=== PATIENT | female | born 1955 | race Caucasian/White ===

== ENCOUNTER 2021-02-20 18:38 | Inpatient (IN) | payer OTHER, SELFPAY ==
[2021-02-20] VITALS (11 sets, daily range): BP systolic 136–182; BP diastolic 75–87; PULSE 79–93; RESP 12–29; TEMP 36.8–38.3; O2SAT 92–95; BMI 49.5; BMI 48.9
--- NOTE | 2021-02-20 18:48 | EKG12_ITS ---
Test Reason : SOB Blood Pressure : / mmHG Vent. Rate : 087 BPM Atrial Rate : 087 BPM P-R Int : 162 ms QRS Dur : 086 ms QT Int : 362 ms P-R-T Axes : 015 -28 013 degrees QTc Int : 435 ms Normal sinus rhythm Normal ECG Confirmed by TAI RUFF, ANGIE ([id number]), editor managing newspaper FARHAD ZAMORA ([id number]) on 02/22/2021 2:41:53 PM Referred By: Confirmed By:SHAHIDA LUJAN MD
--- NOTE | 2021-02-20 18:54 | ED.RN ---
NO OLD EKGS IN MUSE
[2021-02-20] MEDS: dexAMETHasone 4 MG Tablet 6 MG PO (18:57)
--- NOTE | 2021-02-20 19:05 | ED.DCSUM_ITS ---
- ER Visit Summary Date of Service: 02/20/21 Chief Complaint: Dyspnea, Covid History of Present Illness: The patient is a 65 F presenting with shortness of breath. Patient started having Covid symptoms 6 days ago. She was tested at [facility] on Thursday, 2 days ago and tested positive for Covid. Today she became increasingly short of breath. EMS was called. Her pulse ox was 60% on room air. With nonrebreather mask her pulse ox was 94%. She was started on BiPAP on arrival to the ED. She complains of fever, myalgias. She has shortness of breath and cough. She denies chest pain. Denies other complaints. Physical Examination: Vitals are stable. Patient is afebrile. Alert no acute distress. HEENT exam is unremarkable. Neck is supple. Lungs are diminished bilaterally. Heart is regular rate and rhythm. Abdomen is soft nontender nondistended. Extremities are unremarkable. Skin is warm and dry. No focal neurologic deficit. Remainder of exam is unremarkable. Emergency Department Course and Treatment: Patient was started on BiPAP on arrival to the ED. She was given Decadron, Tylenol. CBC, chemistries unremarkable. AST 54. Troponin is negative. EKG is sinus rhythm rate of 87 with no acute ischemic changes. Chest x-ray read by myself and radiology shows bilateral patchy infiltrates. Patient is improved while on BiPAP. Discussed with hospitalist for admission. Disposition: Admission Impression: Covid pneumonia, hypoxia This note was generated with [employer] dictation software. It may contain incorrect words, spelling, and punctuation that were not noted in review of the chart prior to signing ED Disposition - Plan for ED Patient: Referrals: Care Physician,No Primary [Primary Care Provider] -
[2021-02-20 19:07] LABS: Absolute Lymphocyte Count 0.89 X10^3/uL (0.83-4.51); Absolute Neutrophil Count 3.8 X10^3/uL (2.0-7.7); Basophil# 0.01 X10^3/uL; Basophil% 0.2 % (0-1); Hematocrit 44.6 % (37-47); Hemoglobin 14.3 g/dL (12.0-15.0); Lymphocyte # 0.89 X10^3/ul (4.0); Lymphocyte % 17.2 % (19-41); Mean Corp Hgb Conc 32.1 g/dL (32-36); Mean Corpuscular Hgb 28.3 pg (27.0-32.0); Mean Corpuscular Volume 88.3 fL (81-99); Mean Platelet Vol. 10.4 fl (6.2-12.0); Monocyte# 0.42 X10^3/uL; Monocyte% 8.1 % (0-10); NRBC Flagged by Analyzer 0 % (0-5); Neutrophil # 3.81 X10^3/uL (2.7-7.7); Neutrophil % 73.9 % (47-70); Platelet Count 194 K/mm3 (150-450); RBC Distribution Width CV 13.3 % (11.6-14.6); RBC Distribution Width SD 42.9 fl (35.1-43.9); Red Blood Count 5.05 M/mm3 (4.2-5.4); White Blood Count 5.2 K/mm3 (4.4-11.0)
--- NOTE | 2021-02-20 19:12 | RAD_ITS ---
STUDY: X-RAY CHEST REASON FOR EXAM: Female, 65 years old. covid TECHNIQUE: Frontal view COMPARISON: None. FINDINGS: The lungs are not fully expanded. Bilateral diffuse patchy infiltrates. Normal size heart. Normal mediastinum and mayela. Normal visualized pulmonary arteries. Normal visualized aortic arch and descending thoracic aorta. Degenerative changes of the thoracic spine. Normal visualized ribs, clavicles, and shoulders. There is no demonstrated abnormality of the visualized soft tissue structures of the upper abdomen. RAD/Chest 1 View (Portable) IMPRESSION: Bilateral patchy infiltrates. Electronically Signed: Rodger Meneses DO at 19:34 EDT Tel [phone], Service support ,
[2021-02-20 19:29] LABS: ALB/GLOB Ratio 0.7 RATIO (0.9-2.4); AST(SGOT) 54 U/L (15-37); Alanine Aminotransfer ALT/SGPT 35 U/L (13-56); Albumin, Serum 3.1 g/dL (3.2-5.0); Alkaline Phosphatase 78 U/L (45-117); Anion Gap 4 (5-15); BUN 13 mg/dL (7-18); BUN/Creat Ratio 19.9 RATIO (10-20); Calcium,Total 8.2 mg/dL (8.5-10.1); Chloride 106 mmol/L (98-107); Creatinine, Serum 0.65 mg/dL (0.55-1.02); EST Glomerular Filtration Rate 97 mL/min (>60); Est Glom Filt Rate - Afr Amer 118 mL/min (>60); Globulin 4.6 g/dL (2.2-4.2); Glucose 103 mg/dL (74-106); Potassium 3.7 mmol/L (3.5-5.1); Protein, Total 7.7 g/dL (6.4-8.2); Sodium Level 139 mmol/L (136-145)
[2021-02-20] MEDS: Acetaminophen 500 MG Tablet 1000 MG PO (19:29)
--- NOTE | 2021-02-20 20:53 | HP.PCM_ITS ---
Problem List (1) Acute respiratory failure with hypoxia Status: Acute (2) Acute bilateral COVID-19 pneumonia Status: Acute History of Present Illness Date of Admission: 02/20/21 Chief Complaint: Shortness of breath. The patient is a 65 year old F with no significant past medical history presented to the emergency room because of shortness of breath. Her illness started on 6 days ago with dry cough associated with fever and not feeling well. She had a fever of up to 102.5 Fahrenheit this past Thursday at home. On Thursday, she went to [facility] and she tested positive for COVID-19. Over the last couple of days, she has been having increasing shortness of breath, initially was with exertion but now it is even at rest, associated with dry cough and weakness as well as subjective fever and without aggravating or relieving factors. Reportedly, alessandro found that her pulse ox was in the 60% on room air at home. She was placed on an breather mask. She denied chest pain, palpitation, dizziness or lightheadedness. She denied abdominal pain, nausea or vomiting. She denied loss of taste or smell. In the emergency department, she is afebrile, heart rate stable, blood pressure stable, pulse ox is 94% on BiPAP. Her routine blood work was unremarkable. LFT was unremarkable. EKG revealed normal sinus rhythm without evidence of acute hemic changes. Troponin was negative. Chest x-ray revealed diffuse bilateral patchy infiltrate consistent with COVID-19 pneumonia. COVID-19 antigen was positive. She is being admitted for acute bilateral COVID-19 pneumonia complicated by acute hypoxic respiratory failure. Past Medical History Allergies No Known Allergies Allergy (Verified 02/20/21 18:40) Home Medications: Ambulatory Orders Medication Instructions Recorded NK 02/20/21 Surgical History: hysterectomy, tonsillectomy, - - Carpal tunnel surgery. Psychiatric History: No pertinent psych hx Lives: With Family Smoking Status: Never smoker Alcohol: None, Rare - *Family History Maternal History Items: No pertinent history Paternal History Items: No pertinent history Review of Systems Constitutional: Reports: Fever, Malaise, Weakness. Denies: Anorexia, Chills Eyes: Denies: Blurred vision, Double vision, Drainage, Redness, Vision Change HEENT: Denies: Difficulty Hearing, Ear Pain, Eye Pain, Nasal Congestion, Sore Throat Cardiovascular: Denies: Chest Pain, Chest Pressure, Edema, Heaviness, Light Headedness, Palpitations, Syncope Respiratory: Reports: Cough, Shortness of Breath, Shortness of breath upon exertion. Denies: Pleuritic Pain, Sputum production, Wheezing Gastrointestinal: Denies: Abdominal Pain, Constipation, Diarrhea, Nausea, Vomiting Genitourinary: Denies: Dysuria, Frequency, Hematuria Musculoskeletal: Denies: Arm Pain, Back Pain, Foot Pain Skin: Denies: Dryness, Rash Neurological: Denies: Balance problems, Blurred vision, Double vision, Change in Speech, Slurred speech, Confusion, Headaches, Incoordination Psychiatric: Denies: Anxiety, Depression Endocrine: Denies: Change in Body Habitus, Polydipsia, Polyuria VTE Information - Inpt Only VTE Present on Admission: No VTE Mechan Device Prophylaxis: None VTE Pharm Prophylaxis ordered?: Yes - Physical Exam Vitals/I&O's: Vital Signs Temp Pulse Resp BP Pulse Ox 98.3 F 82 28 H 138/87 H 93 02/20/21 20:50 02/20/21 20:50 02/20/21 20:50 02/20/21 20:50 02/20/21 20:50 Oxygen Delivery Method Bi-pap Weight: 288 lb 5.834 oz Body Mass Index (BMI) 49.5 General: Alert, Oriented x3, Cooperative, - - Moderately short of breath, on BiPAP. HEENT: Atraumatic, PERRLA, EOMI, Normocephalic Oral: Moist Mucosa, No Gingival or Mucosal Lesions/ Ulcerations Neck: Supple, No JVD, Negative Carotid Bruits, Trachea Midline, Thyroid Normal Size and Texture Lungs: Clear to auscultation, No rhonchi, No wheeze, No rales, Diminished Cardiovascular: Regular rate, Regular Rhythm, Normal S1, Normal S2, No murmurs, PMI Normal Abdomen: Bowel Sounds Present, Soft, Non Tender, Non-Distended, No Hepato- splenomegaly, Obese Extremities: No clubbing, No cyanosis, No edema Skin: No rashes, No breakdown Lymphatic: No Cervical, Supraclavicular, or Inguinal Adenopathy Neurological: Cranial nerves II-XII grossly intact, Motor Exam 5/5 strength throughout Psych/Mental Status: Normal Affect, Appropriate, Alert and oriented to time, place, person, mood and affect Microbiology Past 72 Hours 02/20/21 18:52 Mucosa - Nasopharyngeal SARS-CoV-2 Antigen (Rapid) - Final SARS-CoV-2 (COVID 19) Laboratory Results 02/20/21 18:55: WBC 5.2, RBC 5.05, Hgb 14.3, Hct 44.6, MCV 88.3, MCH 28.3, MCHC 32.1, RDW Std Deviation 42.9, RDW Coeff of Ramsey 13.3, Plt Count 194, MPV 10.4, Immature Gran % (Auto) 0.600, Neut % (Auto) 73.9 H, Lymph % (Auto) 17.2 L, [place] % (Auto) 8.1, Eos % (Auto) 0.0, Baso % (Auto) 0.2, Absolute Neuts (auto) 3.8, Absolute Lymphs (auto) 0.89, Nucleated RBC % 0 02/20/21 18:55: Sodium 139, Potassium 3.7, Chloride 106, Carbon Dioxide 29.0, Anion Gap 4 L, BUN 13, Creatinine 0.65, Estim Creat Clear Calc 76.50, Est GFR (MDRD) Af Amer 118, Est GFR (MDRD) Non-Af 97, BUN/Creatinine Ratio 19.9, Glucose 103, Calcium 8.2 L, Total Bilirubin 0.60, AST 54 H, ALT 35, Alkaline Phosphatase 78, Troponin I < 0.015, Total Protein 7.7, Albumin 3.1 L, Globulin 4.6 H, Albumin/Globulin Ratio 0.7 L Clinical Impression(s) from Imaging Studies Chest X-Ray 02/20/21 19:12 IMPRESSION: Bilateral patchy infiltrates. Electronically Signed: Rodger Meneses DO at 19:34 EDT Tel [phone], Service support , Assessment/Plan All Active Problems Acute respiratory failure with hypoxia (Acute) Acute bilateral COVID-19 pneumonia (Acute) This is a 65 years old female patient presented to the emergency room because of 6 days history of cough, malaise and weakness and 2 days history of worsening shortness of breath, found to have diffuse bilateral patchy infiltrate on chest x-ray and she tested positive for COVID-19, she is being admitted for acute bilateral COVID-19 pneumonia complicated by acute hypoxic respiratory failure. #1 acute bilateral COVID-19 pneumonia: Chest x-ray reviewed. Patient tested positive for COVID-19 on Thursday, January 18, 2021 and tested positive again today. Currently, she is on BiPAP. Plan: Admit to [facility] COVID-19 floor, isolation precautions, check BNP, CPK, D-dimer, lactic acid, PT and INR, start p.o. Decadron, IV remdesivir, Tylenol as needed, albuterol inhaler as needed, Zofran as needed, pulmonology and infectious disease consult, repeat CBC and CMP tomorrow morning, PT OT evaluation and treatment. #2 acute hypoxic respiratory failure: Secondary to #1. Currently, she is on BiPAP. Reportedly, pulse ox was in the 60s on room air at home. She never smokes, not on oxygen. Plan as above, treat underlying COVID-19 pneumonia, continue BiPAP, will do ABG. #3 CODE STATUS: Full code. Initially, patient requested DNR CCA, no intubation but after her daughter spoke to her, she stated that she does not want to be resuscitated, do endotracheal intubation mechanical ventilation. I informed the patient that if she changed her mind at any point of time, she should let us know. For now, she is full code. #4 DVT prophylaxis: Subcu Lovenox twice daily. This note was generated with [employer] dictation software. It may contain incorrect words, spelling, and punctuation that were not noted in checking the note before signing. Inpatient E&M: 24566 Init Hosp L3
[2021-02-20 22:15] LABS: Allen Test Positive; Base Excess 3 mmol/L (-2 to +2); Bicarbonate 26.8 mmol/L (22-26); Blood Gas Specimen Type ART; FI02 70; O2 Delivery Device BiPAP; PEEP 8; PO2 69 mmHG (75-100); RR 12; SITE L Radial; SO2 94 % (95-99); Total Carbon Dioxide 28 mmol/L; pCO2 40.4 mmHg (35-45); pH 7.43 (7.35-7.45)
[2021-02-20 22:38] LABS: Lactic Acid 0.8 mmol/L (0.4-1.9)
[2021-02-20 22:38] LABS: CPK Total, Creatine Kinase 58 U/L (26-192)
[2021-02-20 22:44] LABS: Procalcitonin 0.09 ng/mL (0.00-0.09)
[2021-02-20 22:58] LABS: BNP,B-Type NATRIURETIC PEPTIDE 14.3 pg/mL (0-100)
[2021-02-20 23:07] LABS: International Normalized Ratio 1.1; Prothrombin Time (Protime)PT. 13.5 SECONDS (11.7-14.9)
[2021-02-20 23:14] LABS: D-Dimer Quantitative (DVT/PE) 1.06 FEU/ug/m (0.27-0.49)
--- NOTE | 2021-02-20 23:19 | CT_ITS ---
STUDY: CTA CHEST REASON FOR EXAM: Female, 65 years old. Elevated D-dimer RADIATION DOSAGE (If Supplied By Facility): CTDIvol = ( 13.85 ) mGy, DLP = ( 473.36 ) mGycm TECHNIQUE: The examination was performed with the intravenous administration of IV 100mL [id number]-[id number]. Post-processing of the angiographic images was performed, with multiplanar reformation and maximum intensity projections. Individualized dose optimization techniques were used for this CT. COMPARISON: Chest x-ray February 20, 2021. FINDINGS: Normal enhancement of the main pulmonary artery and right and left pulmonary arteries. Normal enhancement of the bilateral peripheral pulmonary arteries. There is no demonstrated pulmonary embolism. Normal thoracic aorta and visualized great vessels. There is no demonstrated aortic dissection. Mild cardiomegaly. No pericardial effusion. Small hiatal hernia. Normal mediastinum. Normal hilar regions. Normal visualized trachea and bronchi. Diffuse bilateral patchy lung opacities in the upper lobes, right middle lobe, lingular segment and both lower lobes. No effusions. No pneumothorax. Normal chest wall structures. Normal osseous structures. Normal visualized upper abdomen. CT/CTA Chest W/WO Contrast IMPRESSION: No pulmonary embolism or arterial dissection. Bilateral multifocal pneumonia to include viral pneumonia. Mild cardiomegaly. Small hiatal hernia. Electronically Signed: Rey Andres MD at 0:40 EDT , Service support ,
[2021-02-20] MEDS: Enoxaparin 40 MG/0.4 ML Syringe SC (23:29)
[2021-02-21] VITALS (34 sets, daily range): BP systolic 86–137; BP diastolic 54–92; PULSE 54–83; RESP 12–26; TEMP 36–37.2; O2SAT 89–98; BMI 49.1
--- NOTE | 2021-02-21 00:27 | NURSING ---
Pt. transported to and from CT by this RN and RT. Pt. tolerated well.
[2021-02-21] MEDS: 0.9% Normal Saline 1,000 ML 75 ML IV (00:57)
[2021-02-21] MEDS: 0.9% Saline Lock 10 ML Syringe IV ×2 (01:01→09:17)
--- NOTE | 2021-02-21 04:09 | CPS ---
Pt. switched to AVAPS for further ventilatory assistance while a sleep; possible HESHAM
[2021-02-21 05:29] LABS: Basophil# 0.01 X10^3/uL; Basophil% 0.2 % (0-1); Hematocrit 43.9 % (37-47); Hemoglobin 13.9 g/dL (12.0-15.0); Lymphocyte % 12.1 % (19-41); Mean Corp Hgb Conc 31.7 g/dL (32-36); Mean Corpuscular Hgb 28.4 pg (27.0-32.0); Mean Corpuscular Volume 89.8 fL (81-99); Mean Platelet Vol. 10.5 fl (6.2-12.0); Monocyte# 0.34 X10^3/uL; Monocyte% 6.9 % (0-10); NRBC Flagged by Analyzer 0 % (0-5); Neutrophil # 3.96 X10^3/uL (2.7-7.7); Neutrophil % 80.2 % (47-70); POSITIVE DIFFERENTIAL YES; Platelet Count 203 K/mm3 (150-450); RBC Distribution Width CV 13.3 % (11.6-14.6); Red Blood Count 4.89 M/mm3 (4.2-5.4); White Blood Count 4.9 K/mm3 (4.4-11.0)
[2021-02-21 05:30] LABS: Differential Indicated SCAN CRITERIA MET
--- NOTE | 2021-02-21 05:46 | CON.PCM_ITS ---
Reason for Consult Date of Consultation: 02/21/21 Reason for Consultation: Respiratory failure History of Present Illness: The patient is a 65-year-old female, with a history as outlined below, who presented to the emergency department on February 20 with complaints of shortness of breath. The patient symptom began approximately 1 week ago with generalized malaise, shortness of breath and nonproductive cough. On Thursday of this week she was tested for coronavirus through [facility] and found to be positive. On presentation to the emergency department, the patient was febrile with a temperature of 101 ?F. In addition, she was hypertensive, tachypneic and hypoxemic requiring BiPAP support. Initial laboratory evaluation revealed a normal white blood cell count. D-dimer was elevated to 1.06. Chemistry profile was largely unrevealing. Lactate was within normal limits. Troponin was negative. BNP was normal. Procalcitonin level was normal. Rapid coronavirus antigen testing was positive. CTA chest showed no evidence for pulmonary embolism. However, there was evidence of diffuse bilateral groundglass opacities. The patient was started on remdesivir and Decadron. She was subsequently admitted to the medical intensive care unit for further management. Intubation Indication: Impending respiratory failure Consent was obtained from: Patient The patient was placed in the appropriate sniffing position. Preoxygenated sedation via [id number] was provided for a minimum of 3 minutes. The patient had continuous cardiac as well as pulse oximetry monitoring during the procedure. Procedure sedation was provided by the administration of 4 mg of Versed and 20 mg of etomidate. Direct laryngoscopy was then performed using a number 4 MAC blade, which revealed a grade 2 view. A 7.0 mm endotracheal tube was visualized advancing between the cords to the level of 22 cm at the lip. The stylette was then removed and discarded. Tube placement was confirmed by fogging in the tube along with equal and bilateral breath sounds. Colorimetric change was visualized on the CO2 meter. The cuff was then inflated and the tube secured using a commercially available device. A good pulse oximetry waveform was seen on the monitor throughout the procedure. A portable chest x-ray has been ordered to confirm appropriate placement. The patient tolerated the procedure well. Past Medical History Allergies No Known Allergies Allergy (Verified 02/20/21 18:40) Home Medications: Ambulatory Orders Medication Instructions Recorded NK 02/20/21 Surgical History: hysterectomy, tonsillectomy, - - Carpal tunnel surgery. Psychiatric History: No pertinent psych hx Lives: With Family Smoking Status: Never smoker Alcohol: None, Rare - *Family History Maternal History Items: No pertinent history Paternal History Items: No pertinent history Review of Systems Unable to obtain accurate/complete ROS d/t: Due to impending respiratory failure and BiPAP requirement Patient Problems: Active and Suspected Problems Acute respiratory failure with hypoxia (Acute) Acute bilateral COVID-19 pneumonia (Acute) Objective: The patient's most recent lab work, culture data and imaging studies have all been personally reviewed. Rapid coronavirus antigen testing was positive on February 20. - Physical Exam Vitals/I&O's: Vital Signs Temp Pulse Resp BP Pulse Ox 97.3 F L 77 23 H 137/92 H 93 02/21/21 02:00 02/21/21 05:23 02/21/21 05:23 02/21/21 02:00 02/21/21 05:23 Oxygen Delivery Method Bi-pap Weight: 286 lb 2.56 oz Body Mass Index (BMI) 48.9 Intake and Output for Last 24 Hours 02/19/21 02/20/21 02/21/21 23:59 23:59 23:59 Intake Total 250 / 250 Balance 250 / 250 General: Alert, - - Appears distressed on BiPAP with marginal oxygen saturations. HEENT: Atraumatic, Normocephalic Oral: Dry Mucosa Neck: Supple, No Nodes, Trachea Midline Lungs: No rhonchi, No wheeze, No rales, Diminished, Tachypneic Cardiovascular: Regular rate, Regular Rhythm Abdomen: Bowel Sounds Present, Soft, Non Tender, Obese Extremities: No clubbing, No cyanosis, No edema Skin: No breakdown Musculoskeletal: No Tenderness to Palpation of Joints or Extremities, No Muscle Wasting Lymphatic: No Cervical, Supraclavicular, or Inguinal Adenopathy Neurological: Neuro grossly intact Psych/Mental Status: Normal Affect Labs (Last 48 Hours) 02/20/21 02/20/21 02/20/21 18:55 18:55 18:55 WBC 5.2 RBC 5.05 Hgb 14.3 Hct 44.6 MCV 88.3 MCH 28.3 MCHC 32.1 RDW Std Deviation 42.9 RDW Coeff of Ramsey 13.3 Plt Count 194 MPV 10.4 Immature Gran % (Auto) 0.600 Neut % (Auto) 73.9 H Lymph % (Auto) 17.2 L [place] % (Auto) 8.1 Eos % (Auto) 0.0 Baso % (Auto) 0.2 Absolute Neuts (auto) 3.8 Absolute Lymphs (auto) 0.89 Nucleated RBC % 0 PT INR D-Dimer Quant (PE/DVT) Specimen Type Sample Site pH Bicarbonate Actual Total CO2 Base Excess O2 Saturation O2 % ABG pCO2 ABG pO2 Marcio Test Respiration Rate O2 Delivery Device POC PEEP Sodium 139 Potassium 3.7 Chloride 106 Carbon Dioxide 29.0 Anion Gap 4 L BUN 13 Creatinine 0.65 Estim Creat Clear Calc 76.50 Est GFR (MDRD) Af Amer 118 Est GFR (MDRD) Non-Af 97 BUN/Creatinine Ratio 19.9 Glucose 103 Lactic Acid Calcium 8.2 L Total Bilirubin 0.60 AST 54 H ALT 35 Alkaline Phosphatase 78 Total Creatine Kinase 58 Troponin I < 0.015 B-Natriuretic Peptide Total Protein 7.7 Albumin 3.1 L Globulin 4.6 H Albumin/Globulin Ratio 0.7 L Procalcitonin 02/20/21 02/20/21 02/20/21 18:55 21:55 21:55 WBC RBC Hgb Hct MCV MCH MCHC RDW Std Deviation RDW Coeff of Ramsey Plt Count MPV Immature Gran % (Auto) Neut % (Auto) Lymph % (Auto) [place] % (Auto) Eos % (Auto) Baso % (Auto) Absolute Neuts (auto) Absolute Lymphs (auto) Nucleated RBC % PT 13.5 INR 1.1 D-Dimer Quant (PE/DVT) 1.06 H* Specimen Type Sample Site pH Bicarbonate Actual Total CO2 Base Excess O2 Saturation O2 % ABG pCO2 ABG pO2 Marcio Test Respiration Rate O2 Delivery Device POC PEEP Sodium Potassium Chloride Carbon Dioxide Anion Gap BUN Creatinine Estim Creat Clear Calc Est GFR (MDRD) Af Amer Est GFR (MDRD) Non-Af BUN/Creatinine Ratio Glucose Lactic Acid 0.8 Calcium Total Bilirubin AST ALT Alkaline Phosphatase Total Creatine Kinase Troponin I B-Natriuretic Peptide 14.3 Total Protein Albumin Globulin Albumin/Globulin Ratio Procalcitonin 02/20/21 02/20/21 02/21/21 21:55 22:11 05:20 WBC 4.9 RBC 4.89 Hgb 13.9 Hct 43.9 MCV 89.8 MCH 28.4 MCHC 31.7 L RDW Std Deviation 44.0 H RDW Coeff of Ramsey 13.3 Plt Count 203 MPV 10.5 Immature Gran % (Auto) 0.600 Neut % (Auto) 80.2 H Lymph % (Auto) 12.1 L [place] % (Auto) 6.9 Eos % (Auto) 0.0 Baso % (Auto) 0.2 Absolute Neuts (auto) 4.0 Absolute Lymphs (auto) 0.60 L Nucleated RBC % 0 PT INR D-Dimer Quant (PE/DVT) Specimen Type ART Sample Site L Radial pH 7.43 Bicarbonate Actual 26.8 H Total CO2 28 Base Excess 3 H O2 Saturation 94 L O2 % 70 ABG pCO2 40.4 ABG pO2 69 L Marcio Test Positive Respiration Rate 12 O2 Delivery Device BiPAP POC PEEP 8 Sodium Potassium Chloride Carbon Dioxide Anion Gap BUN Creatinine Estim Creat Clear Calc Est GFR (MDRD) Af Amer Est GFR (MDRD) Non-Af BUN/Creatinine Ratio Glucose Lactic Acid Calcium Total Bilirubin AST ALT Alkaline Phosphatase Total Creatine Kinase Troponin I B-Natriuretic Peptide Total Protein Albumin Globulin Albumin/Globulin Ratio Procalcitonin 0.09 02/21/21 05:20 WBC RBC Hgb Hct MCV MCH MCHC RDW Std Deviation RDW Coeff of Ramsey Plt Count MPV Immature Gran % (Auto) Neut % (Auto) Lymph % (Auto) [place] % (Auto) Eos % (Auto) Baso % (Auto) Absolute Neuts (auto) Absolute Lymphs (auto) Nucleated RBC % PT INR D-Dimer Quant (PE/DVT) Specimen Type Sample Site pH Bicarbonate Actual Total CO2 Base Excess O2 Saturation O2 % ABG pCO2 ABG pO2 Marcio Test Respiration Rate O2 Delivery Device POC PEEP Sodium Pending Potassium Pending Chloride Pending Carbon Dioxide Pending Anion Gap Pending BUN Pending Creatinine Pending Estim Creat Clear Calc Est GFR (MDRD) Af Amer Pending Est GFR (MDRD) Non-Af Pending BUN/Creatinine Ratio Pending Glucose Pending Lactic Acid Calcium Pending Total Bilirubin Pending AST Pending ALT Pending Alkaline Phosphatase Pending Total Creatine Kinase Troponin I B-Natriuretic Peptide Total Protein Pending Albumin Pending Globulin Albumin/Globulin Ratio Procalcitonin Microbiology 02/20/21 18:52 Mucosa - Nasopharyngeal SARS-CoV-2 Antigen (Rapid) - Final SARS-CoV-2 (COVID 19) Clinical Impression(s) from Imaging Studies Chest X-Ray 02/20/21 19:12 IMPRESSION: Bilateral patchy infiltrates. Electronically Signed: Rodger Meneses DO at 19:34 EDT Tel [phone], Service support , Chest CTA 02/20/21 23:19 IMPRESSION: No pulmonary embolism or arterial dissection. Bilateral multifocal pneumonia to include viral pneumonia. Mild cardiomegaly. Small hiatal hernia. Electronically Signed: Rey Andres MD at 0:40 EDT , Service support , Current Medications Acetaminophen (Acetaminophen 325 Mg Tablet) 650 mg PO Q6H PRN PRN PRN Reason: Pain Score 1-10/Temp > 100.7 F Albuterol Sulfate (Albuterol Ih 8.5 Gm (Proair) Inhaler (200 Puffs)) 2 puff INHALATION Q4H PRN PRN PRN Reason: Shortness of breath, wheezing Dexamethasone (Dexamethasone 4 Mg Tablet) 6 mg PO DAILY [facility] Enoxaparin Sodium (Enoxaparin 40 Mg/0.4 Ml Syringe) 40 mg SC BID [facility] Last Admin: 02/20/21 23:29 Dose: 40 mg Documented by: Remdesivir 100 mg/ Sodium (Chloride) 250 mls @ 125 mls/hr IV QHS [facility]; Protocol Stop: 02/24/21 23:59 Sodium Chloride () 250 mls @ 15 mls/hr IV .[id number] PRN PRN Reason: Saline Flush Sodium Chloride () 1,000 mls @ 75 mls/hr IV .[id number] [facility] Stop: 02/21/21 12:39 Last Admin: 02/21/21 00:57 Dose: 75 mls/hr Documented by: Ondansetron HCl (Ondansetron 4 Mg/2 Ml Vial) 4 mg IV Q8H PRN PRN PRN Reason: NAUSEA/VOMITING Senna/Docusate Sodium (Senna/Docusate Sodium 1 Tablet) 2 tablet PO BID PRN PRN PRN Reason: Constipation Sodium Chloride (0.9% Saline Lock 10 Ml Syringe) 10 - 40 ml IV UD PRN PRN Reason: SALINE FLUSH Last Admin: 02/21/21 01:01 Dose: 20 ml Documented by: Assessment/Plan Active and Suspected Problems Acute respiratory failure with hypoxia (Acute) Acute bilateral COVID-19 pneumonia (Acute) RECOMMENDATIONS: 1. Proceed with intubation, given marginal oxygen saturations on BiPAP with an FiO2 of 100%. 2. Check post intubation chest x-ray. 3. Obtain arterial blood gas 1 hour post intubation. 4. Obtain sputum and sent for culture. 5. Wean FiO2 and PEEP to maintain oxygen saturations at or above 90%. 6. Continue remdesivir. Continue to monitor liver and renal function. 7. Continue Decadron to complete 10-day treatment course. 8. Continue Lovenox as ordered. 9. Start daily PPI therapy. 10. Obtain nutrition consult for tube feed recommendations. IMPRESSIONS: 1. Acute hypoxemic respiratory failure secondary to COVID-19 pneumonia The patient presented to the hospital with 1 week of respiratory symptoms and was found to be positive for coronavirus after being tested 3 days ago. The patient was started on remdesivir and Decadron. Although the patient was initiated on noninvasive positive pressure ventilatory support, her oxygen saturations are marginal, despite being on maximum noninvasive support with an FiO2 of 100%. I did speak to the patient regarding goals of care and once again confirmed her desire to proceed with intubation. Therefore, the patient was intubated and placed on assist control mode of mechanical ventilation. Will obtain sputum and sent for culture. Will obtain post intubation chest x-ray and ABG in 1 hour. Nutrition consultation to obtain tube feed recommendations. Continue to wean FiO2 and PEEP to maintain saturations at or above 90%. Family was updated. 2. Super morbid obesity at high risk for sleep disordered breathing Complicates care, management, recovery and prognosis. Continue supportive measures as noted above. TIME: 48 minutes of critical care time, inclusive of procedures, was spent addressing the patient's acute hypoxemic respiratory failure, COVID-19 pneumonia, super morbid obesity, review of all data and collaboration with the care team. ([id number]) [phone]: [id number] Critical care first hour
[2021-02-21 06:07] LABS: ALB/GLOB Ratio 0.6 RATIO (0.9-2.4); AST(SGOT) 69 U/L (15-37); Alanine Aminotransfer ALT/SGPT 42 U/L (13-56); Albumin, Serum 2.8 g/dL (3.2-5.0); Alkaline Phosphatase 76 U/L (45-117); Anion Gap 5 (5-15); BUN 14 mg/dL (7-18); Calcium,Total 8.1 mg/dL (8.5-10.1); Chloride 105 mmol/L (98-107); Creatinine, Serum 0.67 mg/dL (0.55-1.02); EST Glomerular Filtration Rate 95 mL/min (>60); Est Glom Filt Rate - Afr Amer 115 mL/min (>60); Estimated Creatinine Clearance 74.21 ml/min; Globulin 4.5 g/dL (2.2-4.2); Glucose 166 mg/dL (74-106); Potassium 4.2 mmol/L (3.5-5.1); Protein, Total 7.3 g/dL (6.4-8.2); Sodium Level 140 mmol/L (136-145)
--- NOTE | 2021-02-21 08:23 | NURSING ---
Dr. Lion @ bedside for intubation #7.0 et tube, etomadate 20, versed 4 mg , succ 5cc 100mg additional etom 20 mg # 7.0 22 lip 1065
[2021-02-21] MEDS: Midazolam 2 MG/2 ML Syringe 4 MG IV (08:25)
[2021-02-21] MEDS: Etomidate 20 MG/10 ML Vial IV ×2 (08:25→08:35)
[2021-02-21] MEDS: Propofol 10MG/Ml 1,000 MG/100 ML Bottle 7.8 MG CONT INF (08:35)
--- NOTE | 2021-02-21 08:55 | RAD_ITS ---
STUDY: X-RAY CHEST REASON FOR EXAM: Female, 65 years old. ETT placement TECHNIQUE: Single AP portable view of the chest. COMPARISON: 02/20/2021 FINDINGS: Interval placement of endotracheal tube with the tip approximately 3 cm above the merline. Interval placement of nasogastric tube with tip below the diaphragm. No change in alveolar opacities in both lungs consistent with bilateral pneumonia, pulmonary edema, or ARDS per There is no demonstrated pleural abnormality. There is moderate cardiac enlargement. Normal mediastinum and mayela. Normal visualized pulmonary arteries. Normal visualized aortic arch and descending thoracic aorta. Normal visualized thoracic spine. Normal visualized ribs, clavicles, and shoulders. There is no demonstrated abnormality of the visualized soft tissue structures of the upper abdomen. RAD/Chest 1 View (Portable) IMPRESSION: 1. Interval placement of endotracheal tube with the tip above the merline. 2. Interval placement of nasogastric tube with the tip below the diaphragm. 3. No change in bilateral pneumonia, pulmonary edema, or ARDS. Electronically Signed: Fransisco Yuen MD at 9:11 EDT Tel , Service support ,
[2021-02-21 09:56] LABS: Allen Test Positive; Base Excess 2 mmol/L (-2 to +2); Bicarbonate 26.3 mmol/L (22-26); Blood Gas Specimen Type ART; FI02 100; Mode AC; O2 Delivery Device Adult Vent; PEEP 15; PO2 99 mmHG (75-100); RR 16; SITE L Radial; SO2 98 % (95-99); Total Carbon Dioxide 28 mmol/L; Vt 450; pCO2 42.4 mmHg (35-45)
--- NOTE | 2021-02-21 10:13 | NT.THERAPY_ITS ---
Nutrition Therapy Report - History Nutrition Services has been consulted to:: Manage enteral nutrition Current diet / nutrition support order:: regular diet - Anthropometric Measurements Height:: 5 ft 4 in Weight:: 129.8 kg Body Mass Index (BMI):: 49.1 - Relevant Labs Relevant Labs:: MCHC 31.7 g/dL (32-36) L 02/21/21 05:20 RDW Std Deviation 44.0 fl (35.1-43.9) H 02/21/21 05:20 Neut % (Auto) 80.2 % (47-70) H 02/21/21 05:20 Lymph % (Auto) 12.1 % (19-41) L 02/21/21 05:20 Absolute Lymphs (auto) 0.60 X10^3/uL (0.83-4.51) L 02/21/21 05:20 D-Dimer Quant (PE/DVT) 1.06 FEU/ug/m (0.27-0.49) H* 02/20/21 21:55 Anion Gap 4 (5-15) L 02/20/21 18:55 BUN/Creatinine Ratio 21.0 RATIO (10-20) H 02/21/21 05:20 Glucose 166 mg/dL (74-106) H 02/21/21 05:20 Calcium 8.1 mg/dL (8.5-10.1) L 02/21/21 05:20 AST 69 U/L (15-37) H 02/21/21 05:20 Albumin 2.8 g/dL (3.2-5.0) L 02/21/21 05:20 Globulin 4.5 g/dL (2.2-4.2) H 02/21/21 05:20 Albumin/Globulin Ratio 0.6 RATIO (0.9-2.4) L 02/21/21 05:20 - Assessment Food / Nutrition-Related History:: Discussed in ICU rounds. Pt intubated this AM. Unable to interview at this time. Per admission nutrition screen, no changes in appetite/intake [employer]. UBW reported as 290#, CBW 286.2#-3.8#/1.2% wt loss, unknown timeframe. - Nutrition Diagnosis Problem / Etiology / Signs & Symptoms (PES):: inadequate oral intake r/t resp. failure, mechanical intubation as evidenced by estimated PO intake meeting <25% of estimated nutritional needs Evidence of Malnutrition Exists:: No - Nutrition Intervention Nutrition Prescription:: [id number] calories/day (11-14 calories/kg per ASPEN guidelines for critically ill, morbidly obese). 108-135 g protein/day (2.0-2.5 g/kg IBW 54kg). 1600mL fluid/day (1mL/calorie) - Food / Nutrient Delivery Interventions Summary of nutrition intervention:: Will start enteral nutrition support while intubated. Nutrition support ordered as / adjusted to:: NPO while intubated; enteral nutrition support via OGT- Vital HP at goal rate of 65mL/hour w/ 60mL H2O flush every 4 hours to provide 1560 calories, 136 g protein, and 1664mL fluid/day. Would start at 20mL/hour and increase by 15mL every 8-12 hours as pt tolerates until goal rate achieved. - MNT Monitoring Further MNT monitoring and evaluation required?: Yes MNT Follow-up in:: 1-2 days
[2021-02-21] MEDS: Chlorhexidine 15 ML PO ×2 (10:20→20:49)
--- NOTE | 2021-02-21 10:30 | PN_ITS ---
Patient Problems: Active and Suspected Problems Acute respiratory failure with hypoxia (Acute) Acute bilateral COVID-19 pneumonia (Acute) Subjective: Patient seen and examined. She was admitted with a complaint of shortness of breath, with associated cough, fever and general feeling of unwellness. She tested positive for COVID 19 3 days prior to admission. On admission, she was found to be saturating at 60% on room air. She was initially put on BIPAP and started on remdesivir and decadron. She however decompensated from a respiratory standpoint, so was emergently intubated this morning. Patient intubated at time of review. Unable to do review of systems as she is currently intubated. Vitals/I&O's: Vital Signs Temp Pulse Resp BP Pulse Ox 96.9 F L 66 16 131/82 H 97 02/21/21 05:00 02/21/21 10:21 02/21/21 10:21 02/21/21 08:00 02/21/21 10:21 Oxygen Delivery Method Bi-pap Weight: 286 lb 2.56 oz Body Mass Index (BMI) 49.1 Intake and Output for Last 24 Hours 02/19/21 02/20/21 02/21/21 23:59 23:59 23:59 Intake Total 993.48 / 993.48 Output Total 300 / 300 Balance 693.48 / 693.48 General: - - intubed, sedated, RASS score is -4 HEENT: Atraumatic, PERRLA, EOMI, Normocephalic Oral: Dry Mucosa, - - OG tube present Neck: Supple, No JVD, Negative Carotid Bruits Lungs: - - diminished breath sounds bibasally, no wheezes or crackles. intubated and sedated. Cardiovascular: Regular rate, Regular Rhythm, Normal S1, Normal S2, No murmurs Abdomen: Bowel Sounds Present, Soft, Non Tender Extremities: No edema, Capillary Refill Less than 3 Seconds Skin: No rashes, No breakdown Musculoskeletal: No Tenderness to Palpation of Joints or Extremities Lymphatic: No Cervical, Supraclavicular, or Inguinal Adenopathy Neurological: Cranial nerves II-XII grossly intact Psych/Mental Status: - - intubated, sedated. RASS score is -4 Microbiology Past 72 Hours 02/20/21 18:52 Mucosa - Nasopharyngeal SARS-CoV-2 Antigen (Rapid) - Final SARS-CoV-2 (COVID 19) Laboratory Results 02/20/21 18:55: WBC 5.2, RBC 5.05, Hgb 14.3, Hct 44.6, MCV 88.3, MCH 28.3, MCHC 32.1, RDW Std Deviation 42.9, RDW Coeff of Ramsey 13.3, Plt Count 194, MPV 10.4, Immature Gran % (Auto) 0.600, Neut % (Auto) 73.9 H, Lymph % (Auto) 17.2 L, [place] % (Auto) 8.1, Eos % (Auto) 0.0, Baso % (Auto) 0.2, Absolute Neuts (auto) 3.8, Absolute Lymphs (auto) 0.89, Nucleated RBC % 0 02/20/21 18:55: Sodium 139, Potassium 3.7, Chloride 106, Carbon Dioxide 29.0, Anion Gap 4 L, BUN 13, Creatinine 0.65, Estim Creat Clear Calc 76.50, Est GFR (MDRD) Af Amer 118, Est GFR (MDRD) Non-Af 97, BUN/Creatinine Ratio 19.9, Glucose 103, Calcium 8.2 L, Total Bilirubin 0.60, AST 54 H, ALT 35, Alkaline Phosphatase 78, Troponin I < 0.015, Total Protein 7.7, Albumin 3.1 L, Globulin 4.6 H, Albumin/Globulin Ratio 0.7 L 02/20/21 18:55: Total Creatine Kinase 58 02/20/21 18:55: B-Natriuretic Peptide 14.3 02/20/21 21:55: PT 13.5, INR 1.1, D-Dimer Quant (PE/DVT) 1.06 H* 02/20/21 21:55: Lactic Acid 0.8 02/20/21 21:55: Procalcitonin 0.09 02/20/21 22:11: Specimen Type ART, Sample Site L Radial, pH 7.43, Bicarbonate Actual 26.8 H, Total CO2 28, Base Excess 3 H, O2 Saturation 94 L, O2 % 70, ABG pCO2 40.4, ABG pO2 69 L, Marcio Test Positive, Respiration Rate 12, O2 Delivery Device BiPAP, POC PEEP 8 02/21/21 05:20: WBC 4.9, RBC 4.89, Hgb 13.9, Hct 43.9, MCV 89.8, MCH 28.4, MCHC 31.7 L, RDW Std Deviation 44.0 H, RDW Coeff of Ramsey 13.3, Plt Count 203, MPV 10.5, Immature Gran % (Auto) 0.600, Neut % (Auto) 80.2 H, Lymph % (Auto) 12.1 L, [place] % (Auto) 6.9, Eos % (Auto) 0.0, Baso % (Auto) 0.2, Absolute Neuts (auto) 4.0, Absolute Lymphs (auto) 0.60 L, Nucleated RBC % 0 02/21/21 05:20: Sodium 140, Potassium 4.2, Chloride 105, Carbon Dioxide 30.0, Anion Gap 5, BUN 14, Creatinine 0.67, Estim Creat Clear Calc 74.21, Est GFR (MDRD) Af Amer 115, Est GFR (MDRD) Non-Af 95, BUN/Creatinine Ratio 21.0 H, Glucose 166 H, Calcium 8.1 L, Total Bilirubin 0.50, AST 69 H, ALT 42, Alkaline Phosphatase 76, Total Protein 7.3, Albumin 2.8 L, Globulin 4.5 H, Albumin/Globulin Ratio 0.6 L 02/21/21 05:20: Total Creatine Kinase Pending, Triglycerides Pending 02/21/21 09:49: Specimen Type ART, Sample Site L Radial, pH 7.40, Bicarbonate Actual 26.3 H, Total CO2 28, Base Excess 2, O2 Saturation 98, O2 % 100, ABG pCO2 42.4, ABG pO2 99, Marcio Test Positive, Respiration Rate 16, O2 Delivery Device Adult Vent, Vent Mode AC, Tidal Volume 450, POC PEEP 15 Diagnostic Data Chest CTA 02/20/21 23:19 IMPRESSION: No pulmonary embolism or arterial dissection. Bilateral multifocal pneumonia to include viral pneumonia. Mild cardiomegaly. Small hiatal hernia. Electronically Signed: Rey Andres MD at 0:40 EDT , Service support , Chest X-Ray 02/21/21 08:55 IMPRESSION: 1. Interval placement of endotracheal tube with the tip above the merline. 2. Interval placement of nasogastric tube with the tip below the diaphragm. 3. No change in bilateral pneumonia, pulmonary edema, or ARDS. Electronically Signed: Fransisco Yuen MD at 9:11 EDT Tel , Service support , Current Medications Acetaminophen (Acetaminophen 325 Mg Tablet) 650 mg PO Q6H PRN PRN PRN Reason: Pain Score 1-10/Temp > 100.7 F Albuterol Sulfate (Albuterol Ih 8.5 Gm (Proair) Inhaler (200 Puffs)) 2 puff INHALATION Q4H PRN PRN PRN Reason: Shortness of breath, wheezing Dexamethasone Sodium Phosphate (Dexamethasone 10 Mg/Ml Vial) 6 mg IV DAILY [facility] Stop: 03/01/21 10:01 Enoxaparin Sodium (Enoxaparin 40 Mg/0.4 Ml Syringe) 40 mg SC BID [facility] Last Admin: 02/20/21 23:29 Dose: 40 mg Documented by: Remdesivir 100 mg/ Sodium (Chloride) 250 mls @ 125 mls/hr IV QHS [facility]; Protocol Stop: 02/24/21 23:59 Sodium Chloride () 250 mls @ 15 mls/hr IV .[id number] PRN PRN Reason: Saline Flush Sodium Chloride () 1,000 mls @ 75 mls/hr IV .[id number] [facility] Stop: 02/21/21 12:39 Last Infusion: 02/21/21 10:12 Dose: 75 mls/hr Documented by: Propofol (Diprivan) 1,000 mg in 100 mls @ 7.788 mls/hr CONT INF .Q12H [facility]; Protocol Last Titration: 02/21/21 10:12 Dose: 30 mcg/kg/min, 23.4 mls/hr Documented by: Fentanyl Citrate 1,000 mcg/ (Sodium Chloride) 100 mls @ 5 mls/hr CONT INF .Q20H [facility]; Protocol Last Titration: 02/21/21 10:12 Dose: 150 mcg/hr, 15 mls/hr Documented by: Pantoprazole Sodium 40 mg/ (Sodium Chloride) 110 mls @ 330 mls/hr IV Q24 [facility] Enteral Nutritional Formula (Vital High Protein) 1,000 mls @ 65 mls/hr GT .[id number] [facility] Ondansetron HCl (Ondansetron 4 Mg/2 Ml Vial) 4 mg IV Q8H PRN PRN PRN Reason: NAUSEA/VOMITING Senna/Docusate Sodium (Senna/Docusate Sodium 1 Tablet) 2 tablet PO BID PRN PRN PRN Reason: Constipation Sodium Chloride (0.9% Saline Lock 10 Ml Syringe) 10 - 40 ml IV UD PRN PRN Reason: SALINE FLUSH Last Admin: 02/21/21 09:17 Dose: 40 ml Documented by: STROKE Vital Signs/Narrative: Vital Signs Pulse Resp BP Pulse Ox 02/21/21 10:21 66 16 97 02/21/21 08:52 72 16 89 02/21/21 08:00 67 20 H 131/82 H 89 Medical Necessity - Tobacco Use Smoking Status: Never smoker Assessment/Plan All Active Problems Acute respiratory failure with hypoxia (Acute) Acute bilateral COVID-19 pneumonia (Acute) #Acute hypoxic respiratory failure due to COVID 19 infection * patient emergently intubated this morning o/a of worsening respiratory state * on remdesivir and decadrone * critical care on board * currently sedated. RASS score is -4. * breathing treatments with bronchodilators * * #COVID 19 infection: as above. #Elevated D dimer: CTA of the chest was negative for PE. DVT prophylaxis: on lovenox SC 40mg bid. Inpatient E&M: [id number] [facility] L[facility]
[2021-02-21] MEDS: Propofol 10MG/Ml 1,000 MG/100 ML Bottle 23.4 MG CONT INF (10:45)
[2021-02-21] MEDS: Enoxaparin 40 MG/0.4 ML Syringe SC ×2 (10:46→20:49)
[2021-02-21] MEDS: dexAMETHasone 10 MG/ML Vial 6 MG IV (10:48)
[2021-02-21 11:03] LABS: CPK Total, Creatine Kinase 66 U/L (26-192); Triglycerides 63 mg/dL
--- NOTE | 2021-02-21 11:55 | CASEMGMT ---
RN CM called daughter Pawan for initial transition planning/care coordination assessment, as patient is currently intubated. RN CM introduced self and role at [facility]. Daughter willing to participate in assessment and is able to answer all questions appropriately, patient's is with daughter. Care providers, pharmacy, and demographics verified. Discharge disposition to be determined by course of treatment and progress with therapy. Daughter and husbadn state they have no further needs or concerns at this time. CM to follow for discharge planning needs that may arise. PCP: No PCP, will provided patient and family list when appropriate Specialists: none Preferred [facility]acy: [facility] Insurance: [employer] Prescription Benefit: yes Living Will/HPOA: yes, Kem Koehler LNOK: and daughter Living Arrangements: Patient lives with in a house. Patient was independent at home prior illness. Transportation: and daughter DME/HHC: No DME, previous HHC or SNF. Disposition Plan: TBD by course of treatment and progress with therapy. Mikki ADDISON, RN, CM
[2021-02-21] MEDS: Vital High Protein 1,000 ML 20 ML GT (12:23)
--- NOTE | 2021-02-21 14:38 | CON.PCM_ITS ---
Reason for Consult: COVID-19 pneumonia with respiratory failure Consulted by: Dr.Derek Lion History of Present Illness: The patient is a 65 year old F [] This is a 65-year-old white female with past medical history obesity who was diagnosed with COVID-19 last week and presents with worsening respiratory distress and was admitted yesterday evening. Over the last 24 hours she developed respiratory failure and this morning she is beta. She is currently on FiO2 of 75% and a PEEP of 13. Tube feeds were started through orogastric tube. She is currently heavily sedated. She was started on remdesivir along with low-dose dexamethasone and low molecular weight heparin for DVT prophylaxis. Chest x-ray shows bilateral infiltrates. CT scan of the chest did not show evidence of pulmonary emboli. unclear if she received the Covid vaccine in the past. - Medical History Allergies/Adverse Reactions: Allergies No Known Allergies Allergy (Verified 02/20/21 18:40) Home Medications: Ambulatory Orders Medication Instructions Recorded NK 02/20/21 Vital Signs Temp Pulse Resp BP Pulse Ox 98.9 F 66 16 95/62 94 02/21/21 12:00 02/21/21 12:00 02/21/21 12:00 02/21/21 12:00 02/21/21 12:00 Oxygen Delivery Method Mechanical Ventilator Weight: 129.8 kg Body Mass Index (BMI) 49.1 Microbiology Past 72 Hours 02/20/21 18:52 SARS-CoV-2 Antigen (Rapid) - Final Mucosa - Nasopharyngeal SARS-CoV-2 (COVID 19) Laboratory Tests Past 24 Hrs 02/20/21 02/20/21 02/20/21 18:55 18:55 18:55 WBC 5.2 RBC 5.05 Hgb 14.3 Hct 44.6 MCV 88.3 MCH 28.3 MCHC 32.1 RDW Std Deviation 42.9 RDW Coeff of Ramsey 13.3 Plt Count 194 MPV 10.4 Immature Gran % (Auto) 0.600 Neut % (Auto) 73.9 H Lymph % (Auto) 17.2 L [place] % (Auto) 8.1 Eos % (Auto) 0.0 Baso % (Auto) 0.2 Absolute Neuts (auto) 3.8 Absolute Lymphs (auto) 0.89 Nucleated RBC % 0 PT INR D-Dimer Quant (PE/DVT) Specimen Type Sample Site pH Bicarbonate Actual Total CO2 Base Excess O2 Saturation O2 % ABG pCO2 ABG pO2 Marcio Test Respiration Rate O2 Delivery Device Vent Mode Tidal Volume POC PEEP Sodium 139 Potassium 3.7 Chloride 106 Carbon Dioxide 29.0 Anion Gap 4 L BUN 13 Creatinine 0.65 Estim Creat Clear Calc 76.50 Est GFR (MDRD) Af Amer 118 Est GFR (MDRD) Non-Af 97 BUN/Creatinine Ratio 19.9 Glucose 103 Lactic Acid Calcium 8.2 L Total Bilirubin 0.60 AST 54 H ALT 35 Alkaline Phosphatase 78 Total Creatine Kinase 58 Troponin I < 0.015 B-Natriuretic Peptide Total Protein 7.7 Albumin 3.1 L Globulin 4.6 H Albumin/Globulin Ratio 0.7 L Triglycerides Procalcitonin 02/20/21 02/20/21 02/20/21 18:55 21:55 21:55 WBC RBC Hgb Hct MCV MCH MCHC RDW Std Deviation RDW Coeff of Ramsey Plt Count MPV Immature Gran % (Auto) Neut % (Auto) Lymph % (Auto) [place] % (Auto) Eos % (Auto) Baso % (Auto) Absolute Neuts (auto) Absolute Lymphs (auto) Nucleated RBC % PT 13.5 INR 1.1 D-Dimer Quant (PE/DVT) 1.06 H* Specimen Type Sample Site pH Bicarbonate Actual Total CO2 Base Excess O2 Saturation O2 % ABG pCO2 ABG pO2 Marcio Test Respiration Rate O2 Delivery Device Vent Mode Tidal Volume POC PEEP Sodium Potassium Chloride Carbon Dioxide Anion Gap BUN Creatinine Estim Creat Clear Calc Est GFR (MDRD) Af Amer Est GFR (MDRD) Non-Af BUN/Creatinine Ratio Glucose Lactic Acid 0.8 Calcium Total Bilirubin AST ALT Alkaline Phosphatase Total Creatine Kinase Troponin I B-Natriuretic Peptide 14.3 Total Protein Albumin Globulin Albumin/Globulin Ratio Triglycerides Procalcitonin 02/20/21 02/20/21 02/21/21 21:55 22:11 05:20 WBC 4.9 RBC 4.89 Hgb 13.9 Hct 43.9 MCV 89.8 MCH 28.4 MCHC 31.7 L RDW Std Deviation 44.0 H RDW Coeff of Ramsey 13.3 Plt Count 203 MPV 10.5 Immature Gran % (Auto) 0.600 Neut % (Auto) 80.2 H Lymph % (Auto) 12.1 L [place] % (Auto) 6.9 Eos % (Auto) 0.0 Baso % (Auto) 0.2 Absolute Neuts (auto) 4.0 Absolute Lymphs (auto) 0.60 L Nucleated RBC % 0 PT INR D-Dimer Quant (PE/DVT) Specimen Type ART Sample Site L Radial pH 7.43 Bicarbonate Actual 26.8 H Total CO2 28 Base Excess 3 H O2 Saturation 94 L O2 % 70 ABG pCO2 40.4 ABG pO2 69 L Marcio Test Positive Respiration Rate 12 O2 Delivery Device BiPAP Vent Mode Tidal Volume POC PEEP 8 Sodium Potassium Chloride Carbon Dioxide Anion Gap BUN Creatinine Estim Creat Clear Calc Est GFR (MDRD) Af Amer Est GFR (MDRD) Non-Af BUN/Creatinine Ratio Glucose Lactic Acid Calcium Total Bilirubin AST ALT Alkaline Phosphatase Total Creatine Kinase Troponin I B-Natriuretic Peptide Total Protein Albumin Globulin Albumin/Globulin Ratio Triglycerides Procalcitonin 0.09 02/21/21 02/21/21 02/21/21 05:20 05:20 09:49 WBC RBC Hgb Hct MCV MCH MCHC RDW Std Deviation RDW Coeff of Ramsey Plt Count MPV Immature Gran % (Auto) Neut % (Auto) Lymph % (Auto) [place] % (Auto) Eos % (Auto) Baso % (Auto) Absolute Neuts (auto) Absolute Lymphs (auto) Nucleated RBC % PT INR D-Dimer Quant (PE/DVT) Specimen Type ART Sample Site L Radial pH 7.40 Bicarbonate Actual 26.3 H Total CO2 28 Base Excess 2 O2 Saturation 98 O2 % 100 ABG pCO2 42.4 ABG pO2 99 Marcio Test Positive Respiration Rate 16 O2 Delivery Device Adult Vent Vent Mode AC Tidal Volume 450 POC PEEP 15 Sodium 140 Potassium 4.2 Chloride 105 Carbon Dioxide 30.0 Anion Gap 5 BUN 14 Creatinine 0.67 Estim Creat Clear Calc 74.21 Est GFR (MDRD) Af Amer 115 Est GFR (MDRD) Non-Af 95 BUN/Creatinine Ratio 21.0 H Glucose 166 H Lactic Acid Calcium 8.1 L Total Bilirubin 0.50 AST 69 H ALT 42 Alkaline Phosphatase 76 Total Creatine Kinase 66 Troponin I B-Natriuretic Peptide Total Protein 7.3 Albumin 2.8 L Globulin 4.5 H Albumin/Globulin Ratio 0.6 L Triglycerides 63 Procalcitonin - Other Studies Radiology: [] Other Studies: [] Route of nutrition/ use of supplements: [] Nutritional Intake: [] IV Site: [] Ochoa Catheter: [] Sedated on the ventilator, lungs with coarse breath sounds heart exam S1-S2 abdomen is obese but soft. Ochoa catheter is in place. Endotracheal tube and orogastric tube in place - Assessment/Plan Antibiotics: [] Assessment/Plan: [] Active and Suspected Problems Acute respiratory failure with hypoxia (Acute) Acute bilateral COVID-19 pneumonia (Acute) COVID-19 pneumonia respiratory failure. I agree with low-dose dexamethasone and remdesivir along with DVT prophylaxis in the form of low molecular weight heparin. Continue supportive care.
[2021-02-21] MEDS: Propofol 10MG/Ml 1,000 MG/100 ML Bottle 19.5 MG CONT INF (15:20)
--- NOTE | 2021-02-21 15:34 | NURSING ---
updated daughter Tieraney about picc line insertion & overall status,voiced understanding
[2021-02-21] MEDS: Propofol 10MG/Ml 1,000 MG/100 ML Bottle 11.7 MG CONT INF (22:27)
[2021-02-22] VITALS (38 sets, daily range): BP systolic 83–146; BP diastolic 54–98; PULSE 53–85; RESP 16–24; TEMP 36.4–38; O2SAT 87–100
[2021-02-22 04:57] LABS: ALB/GLOB Ratio 0.6 RATIO (0.9-2.4); AST(SGOT) 51 U/L (15-37); Alanine Aminotransfer ALT/SGPT 41 U/L (13-56); Albumin, Serum 2.4 g/dL (3.2-5.0); Alkaline Phosphatase 64 U/L (45-117); Anion Gap 5 (5-15); BUN 35 mg/dL (7-18); BUN/Creat Ratio 40.5 RATIO (10-20); Calcium,Total 7.9 mg/dL (8.5-10.1); Chloride 108 mmol/L (98-107); Creatinine, Serum 0.86 mg/dL (0.55-1.02); EST Glomerular Filtration Rate 70 mL/min (>60); Est Glom Filt Rate - Afr Amer 85 mL/min (>60); Estimated Creatinine Clearance 57.82 ml/min; Globulin 4.1 g/dL (2.2-4.2); Glucose 147 mg/dL (74-106); Potassium 3.9 mmol/L (3.5-5.1); Protein, Total 6.5 g/dL (6.4-8.2); Sodium Level 142 mmol/L (136-145)
[2021-02-22] MEDS: TITRATION PARAMETER CHANGE 1 EACH IV (05:30)
--- NOTE | 2021-02-22 05:56 | PN_ITS ---
Subjective: The patient was seen and examined at the bedside this morning. Events from the last 24 hours have been reviewed. The patient is currently afebrile, hemodynamically stable and maintaining appropriate oxygen saturations on assist control mode of mechanical ventilation with an FiO2 requirement of 100% and PEEP of 13. The patient remains sedated on propofol and fentanyl. She is able to follow simple commands. She is currently tolerating tube feeds without issue. She is currently documented to be overall net +1.5 L for the hospital admission. She remains on remdesivir and Decadron, along with twice daily Lovenox. Liver and renal function are stable. Objective: The patient's most recent lab work, culture data and imaging studies have all been personally reviewed. Rapid coronavirus antigen testing was positive on February 20. Sputum culture is currently pending. General: - - Remains intubated, sedated and mechanically ventilated. No ventilator dyssynchrony noted. HEENT: Atraumatic, PERRLA, Normocephalic Oral: No Gingival or Mucosal Lesions/ Ulcerations, - - Endotracheal and OG tubes in place Neck: Supple, No Nodes, Trachea Midline Lungs: No rhonchi, No wheeze, No rales, Diminished Cardiovascular: Regular rate, Regular Rhythm Abdomen: Bowel Sounds Present, Soft, Non Tender, Obese Extremities: No clubbing, No cyanosis, No edema Skin: No breakdown Musculoskeletal: No Muscle Wasting Lymphatic: No Cervical, Supraclavicular, or Inguinal Adenopathy Neurological: - - No focal neurological deficits. Currently sedated on the ventilator. Vital Signs Temp Pulse Resp BP Pulse Ox 98.2 F 61 16 115/69 95 02/22/21 05:00 02/22/21 05:05 02/22/21 05:05 02/22/21 05:00 02/22/21 05:05 Oxygen Delivery Method Mechanical Ventilator Weight: 287 lb 11.252 oz Body Mass Index (BMI) 49.1 Intake and Output for Last 24 Hours 02/20/21 02/21/21 02/22/21 23:59 23:59 23:59 Intake Total 2291.75 / 2406.05 433.80 / 433.80 Output Total 900 / 1000 300 / 300 Balance 1391.75 / 1406.05 133.80 / 133.80 Labs (Last 48 Hours) 02/20/21 02/20/21 02/20/21 18:55 18:55 18:55 WBC 5.2 RBC 5.05 Hgb 14.3 Hct 44.6 MCV 88.3 MCH 28.3 MCHC 32.1 RDW Std Deviation 42.9 RDW Coeff of Ramsey 13.3 Plt Count 194 MPV 10.4 Immature Gran % (Auto) 0.600 Neut % (Auto) 73.9 H Lymph % (Auto) 17.2 L [place] % (Auto) 8.1 Eos % (Auto) 0.0 Baso % (Auto) 0.2 Absolute Neuts (auto) 3.8 Absolute Lymphs (auto) 0.89 Nucleated RBC % 0 PT INR D-Dimer Quant (PE/DVT) Specimen Type Sample Site pH Bicarbonate Actual Total CO2 Base Excess O2 Saturation O2 % ABG pCO2 ABG pO2 Marcio Test Respiration Rate O2 Delivery Device Vent Mode Tidal Volume POC PEEP Sodium 139 Potassium 3.7 Chloride 106 Carbon Dioxide 29.0 Anion Gap 4 L BUN 13 Creatinine 0.65 Estim Creat Clear Calc 76.50 Est GFR (MDRD) Af Amer 118 Est GFR (MDRD) Non-Af 97 BUN/Creatinine Ratio 19.9 Glucose 103 Lactic Acid Calcium 8.2 L Total Bilirubin 0.60 AST 54 H ALT 35 Alkaline Phosphatase 78 Total Creatine Kinase 58 Troponin I < 0.015 B-Natriuretic Peptide Total Protein 7.7 Albumin 3.1 L Globulin 4.6 H Albumin/Globulin Ratio 0.7 L Triglycerides Procalcitonin 02/20/21 02/20/21 02/20/21 18:55 21:55 21:55 WBC RBC Hgb Hct MCV MCH MCHC RDW Std Deviation RDW Coeff of Ramsey Plt Count MPV Immature Gran % (Auto) Neut % (Auto) Lymph % (Auto) [place] % (Auto) Eos % (Auto) Baso % (Auto) Absolute Neuts (auto) Absolute Lymphs (auto) Nucleated RBC % PT 13.5 INR 1.1 D-Dimer Quant (PE/DVT) 1.06 H* Specimen Type Sample Site pH Bicarbonate Actual Total CO2 Base Excess O2 Saturation O2 % ABG pCO2 ABG pO2 Marcio Test Respiration Rate O2 Delivery Device Vent Mode Tidal Volume POC PEEP Sodium Potassium Chloride Carbon Dioxide Anion Gap BUN Creatinine Estim Creat Clear Calc Est GFR (MDRD) Af Amer Est GFR (MDRD) Non-Af BUN/Creatinine Ratio Glucose Lactic Acid 0.8 Calcium Total Bilirubin AST ALT Alkaline Phosphatase Total Creatine Kinase Troponin I B-Natriuretic Peptide 14.3 Total Protein Albumin Globulin Albumin/Globulin Ratio Triglycerides Procalcitonin 02/20/21 02/20/21 02/21/21 21:55 22:11 05:20 WBC 4.9 RBC 4.89 Hgb 13.9 Hct 43.9 MCV 89.8 MCH 28.4 MCHC 31.7 L RDW Std Deviation 44.0 H RDW Coeff of Ramsey 13.3 Plt Count 203 MPV 10.5 Immature Gran % (Auto) 0.600 Neut % (Auto) 80.2 H Lymph % (Auto) 12.1 L [place] % (Auto) 6.9 Eos % (Auto) 0.0 Baso % (Auto) 0.2 Absolute Neuts (auto) 4.0 Absolute Lymphs (auto) 0.60 L Nucleated RBC % 0 PT INR D-Dimer Quant (PE/DVT) Specimen Type ART Sample Site L Radial pH 7.43 Bicarbonate Actual 26.8 H Total CO2 28 Base Excess 3 H O2 Saturation 94 L O2 % 70 ABG pCO2 40.4 ABG pO2 69 L Marcio Test Positive Respiration Rate 12 O2 Delivery Device BiPAP Vent Mode Tidal Volume POC PEEP 8 Sodium Potassium Chloride Carbon Dioxide Anion Gap BUN Creatinine Estim Creat Clear Calc Est GFR (MDRD) Af Amer Est GFR (MDRD) Non-Af BUN/Creatinine Ratio Glucose Lactic Acid Calcium Total Bilirubin AST ALT Alkaline Phosphatase Total Creatine Kinase Troponin I B-Natriuretic Peptide Total Protein Albumin Globulin Albumin/Globulin Ratio Triglycerides Procalcitonin 0.09 02/21/21 02/21/21 02/21/21 05:20 05:20 09:49 WBC RBC Hgb Hct MCV MCH MCHC RDW Std Deviation RDW Coeff of Ramsey Plt Count MPV Immature Gran % (Auto) Neut % (Auto) Lymph % (Auto) [place] % (Auto) Eos % (Auto) Baso % (Auto) Absolute Neuts (auto) Absolute Lymphs (auto) Nucleated RBC % PT INR D-Dimer Quant (PE/DVT) Specimen Type ART Sample Site L Radial pH 7.40 Bicarbonate Actual 26.3 H Total CO2 28 Base Excess 2 O2 Saturation 98 O2 % 100 ABG pCO2 42.4 ABG pO2 99 Marcio Test Positive Respiration Rate 16 O2 Delivery Device Adult Vent Vent Mode AC Tidal Volume 450 POC PEEP 15 Sodium 140 Potassium 4.2 Chloride 105 Carbon Dioxide 30.0 Anion Gap 5 BUN 14 Creatinine 0.67 Estim Creat Clear Calc 74.21 Est GFR (MDRD) Af Amer 115 Est GFR (MDRD) Non-Af 95 BUN/Creatinine Ratio 21.0 H Glucose 166 H Lactic Acid Calcium 8.1 L Total Bilirubin 0.50 AST 69 H ALT 42 Alkaline Phosphatase 76 Total Creatine Kinase 66 Troponin I B-Natriuretic Peptide Total Protein 7.3 Albumin 2.8 L Globulin 4.5 H Albumin/Globulin Ratio 0.6 L Triglycerides 63 Procalcitonin 02/22/21 04:25 WBC RBC Hgb Hct MCV MCH MCHC RDW Std Deviation RDW Coeff of Ramsey Plt Count MPV Immature Gran % (Auto) Neut % (Auto) Lymph % (Auto) [place] % (Auto) Eos % (Auto) Baso % (Auto) Absolute Neuts (auto) Absolute Lymphs (auto) Nucleated RBC % PT INR D-Dimer Quant (PE/DVT) Specimen Type Sample Site pH Bicarbonate Actual Total CO2 Base Excess O2 Saturation O2 % ABG pCO2 ABG pO2 Marcio Test Respiration Rate O2 Delivery Device Vent Mode Tidal Volume POC PEEP Sodium 142 Potassium 3.9 Chloride 108 H Carbon Dioxide 29.0 Anion Gap 5 BUN 35 H Creatinine 0.86 Estim Creat Clear Calc 57.82 Est GFR (MDRD) Af Amer 85 Est GFR (MDRD) Non-Af 70 BUN/Creatinine Ratio 40.5 H Glucose 147 H Lactic Acid Calcium 7.9 L Total Bilirubin 0.30 AST 51 H ALT 41 Alkaline Phosphatase 64 Total Creatine Kinase Troponin I B-Natriuretic Peptide Total Protein 6.5 Albumin 2.4 L Globulin 4.1 Albumin/Globulin Ratio 0.6 L Triglycerides Procalcitonin Microbiology 02/21/21 08:43 Sputum, Expectorated/Coughed Gram Stain - Final 02/20/21 18:52 Mucosa - Nasopharyngeal SARS-CoV-2 Antigen (Rapid) - Final SARS-CoV-2 (COVID 19) Clinical Impression(s) from Imaging Studies Chest X-Ray 02/20/21 19:12 IMPRESSION: Bilateral patchy infiltrates. Electronically Signed: Rodger Meneses DO at 19:34 EDT Tel [phone], Service support , Chest CTA 02/20/21 23:19 IMPRESSION: No pulmonary embolism or arterial dissection. Bilateral multifocal pneumonia to include viral pneumonia. Mild cardiomegaly. Small hiatal hernia. Electronically Signed: Rey Andres MD at 0:40 EDT , Service support , Chest X-Ray 02/21/21 08:55 IMPRESSION: 1. Interval placement of endotracheal tube with the tip above the merline. 2. Interval placement of nasogastric tube with the tip below the diaphragm. 3. No change in bilateral pneumonia, pulmonary edema, or ARDS. Electronically Signed: Fransisco Yuen MD at 9:11 EDT Tel , Service support , Medical Necessity - Tobacco Use Smoking Status: Never smoker Assessment/Plan All Active Problems Acute respiratory failure with hypoxia (Acute) Acute bilateral COVID-19 pneumonia (Acute) RECOMMENDATIONS: 1. Obtain repeat plain film chest x-ray this morning. 2. Continue patient on assist control mode of mechanical ventilation and wean FiO2 and PEEP to maintain saturations at or above 90%. 3. Continue remdesivir. Continue to monitor liver and renal function accordingly. 4. Complete 10-day course of Decadron. 5. Continue tube feeds as tolerated. Start bowel regimen. 6. Continue appropriate ICU prophylaxis. IMPRESSIONS: 1. Acute hypoxemic respiratory failure secondary to COVID-19 pneumonia The patient presented to the hospital with 1 week of respiratory symptoms and was found to be positive for coronavirus. The patient was started on remdesivir and Decadron. Although the patient was initiated on noninvasive positive pressure ventilatory support, her oxygen saturations were marginal, despite being on maximum noninvasive support with an FiO2 of 100%. Therefore, the patient was intubated on the morning of February 21. She has significant bilateral pulmonary infiltrates. The patient will be continued on assist control mode of mechanical ventilation with a goal to wean FiO2 and PEEP to maintain saturations at or above 90%. We will continue current supportive measures as noted above along with tube feeds as tolerated. 2. Super morbid obesity at high risk for sleep disordered breathing Complicates care, management, recovery and prognosis. Continue supportive measures as noted above. TIME: 38 minutes of critical care time, independent of procedures, was spent a ddressing the patient's acute hypoxemic respiratory failure, COVID-19 pneumonia, super morbid obesity, review of all data and collaboration with the care team. [id number]) [phone] [id number] Critical care first hour
--- NOTE | 2021-02-22 06:36 | RAD_ITS ---
INDICATION: Respiratory Failure EXAMINATION/TECHNIQUE: X-RAY - XR Chest 1 View COMPARISON: 02/21/2021 FINDINGS: Endotracheal tube is present with tip 2.4 cm above the merline. Unchanged position of right PICC with tip in the lower SVC. Unchanged position of NG tube. Slight interval improvement in bilateral interstitial and alveolar opacities. The heart is enlarged. No pleural effusion or pneumothorax. No acute osseous abnormalities. RAD/Chest 1 View (Portable) IMPRESSION: Slight interval improvement in bilateral interstitial and alveolar opacities. The endotracheal tube has advanced slightly and is now 2.4 cm above the merline. Electronically Signed: Gab Clark MD at 16:55 EDT Tel , Service support ,
--- NOTE | 2021-02-22 08:03 | CASEMGMT ---
As per admitting sap basis administrator, pt has LW/POA forms, is POA. She will not be bringing in the paperwork however. YVETTE Gaitan
[2021-02-22] MEDS: Propofol 10MG/Ml 1,000 MG/100 ML Bottle 7.8 MG CONT INF ×3 (08:38→23:22)
[2021-02-22] MEDS: Enoxaparin 40 MG/0.4 ML Syringe SC ×2 (08:42→20:39)
[2021-02-22] MEDS: dexAMETHasone 10 MG/ML Vial 6 MG IV (08:43)
[2021-02-22] MEDS: Chlorhexidine 15 ML PO ×2 (08:43→20:39)
--- NOTE | 2021-02-22 10:02 | CASEMGMT ---
RN CM participated in ICU rounds. Patient remains intubated, on vent with FiO2 @ 100%. CM will continue to follow this patient and assist with discharge planning as patient progresses with care.
[2021-02-22] MEDS: Senna/Docusate Sodium 1 Tablet 2 TABLET PO ×2 (10:56→20:39)
[2021-02-22] MEDS: Vital High Protein 1,000 ML 65 ML GT (10:56)
--- NOTE | 2021-02-22 13:17 | PN_ITS ---
Patient Problems: Active and Suspected Problems Acute respiratory failure with hypoxia (Acute) Acute bilateral COVID-19 pneumonia (Acute) Subjective: Patient seen and examined. She remains intubated and sedated. Temperature was up to 100.2F. She remains hemodynamically stable, and is requiring FiO2 of 100%, and PEEP of 13. She remains on propofol and fentanyl. She remains on tube feeding. She is in positive cumulative balance by 1.48L. She remains on remdesivir and decadron. Vitals/I&O's: Vital Signs Temp Pulse Resp BP Pulse Ox 100.2 F H 71 16 113/59 L 94 02/22/21 12:00 02/22/21 12:00 02/22/21 12:00 02/22/21 12:00 02/22/21 12:00 Oxygen Delivery Method Mechanical Ventilator Weight: 287 lb 11.252 oz Body Mass Index (BMI) 49.1 Intake and Output for Last 24 Hours 02/20/21 02/21/21 02/22/21 23:59 23:59 23:59 Intake Total 2291.75 / 2406.05 685.63 / 685.63 Output Total 900 / 1000 600 / 600 Balance 1391.75 / 1406.05 85.63 / 85.63 General: - - intubated, sedated, RASS score is 0 HEENT: Atraumatic, PERRLA, EOMI, Normocephalic Oral: Dry Mucosa, - - OG tube present Neck: Supple, No JVD, Negative Carotid Bruits Lungs: - - diminished breath sounds bibasally, no wheezes or crackles. intubated and sedated. Cardiovascular: Regular rate, Regular Rhythm, Normal S1, Normal S2, No murmurs Abdomen: Bowel Sounds Present, Soft, Non Tender Extremities: No edema, Capillary Refill Less than 3 Seconds Skin: No rashes, No breakdown Musculoskeletal: No Tenderness to Palpation of Joints or Extremities Lymphatic: No Cervical, Supraclavicular, or Inguinal Adenopathy Neurological: Cranial nerves II-XII grossly intact Psych/Mental Status: - - intubated, sedated. RASS score is 0 Microbiology Past 72 Hours 02/21/21 08:43 Sputum, Expectorated/Coughed Gram Stain - Final 02/21/21 08:43 Sputum, Expectorated/Coughed Respiratory Culture - Preliminary Beta hemolytic organism 02/20/21 18:52 Mucosa - Nasopharyngeal SARS-CoV-2 Antigen (Rapid) - Final SARS-CoV-2 (COVID 19) Laboratory Results 02/22/21 04:25: Sodium 142, Potassium 3.9, Chloride 108 H, Carbon Dioxide 29.0, Anion Gap 5, BUN 35 H, Creatinine 0.86, Estim Creat Clear Calc 57.82, Est GFR (MDRD) Af Amer 85, Est GFR (MDRD) Non-Af 70, BUN/Creatinine Ratio 40.5 H, Glucose 147 H, Calcium 7.9 L, Total Bilirubin 0.30, AST 51 H, ALT 41, Alkaline Phosphatase 64, Total Protein 6.5, Albumin 2.4 L, Globulin 4.1, Albumin/Globulin Ratio 0.6 L Current Medications Acetaminophen (Acetaminophen 325 Mg Tablet) 650 mg PO Q6H PRN PRN PRN Reason: Pain Score 1-10/Temp > 100.7 F Albuterol Sulfate (Albuterol Ih 8.5 Gm (Proair) Inhaler (200 Puffs)) 2 puff INHALATION Q4H PRN PRN PRN Reason: Shortness of breath, wheezing Chlorhexidine Gluconate (Chlorhexidine 15 Ml) 15 ml PO BID [facility] Last Admin: 02/22/21 08:43 Dose: 15 ml Documented by: Dexamethasone Sodium Phosphate (Dexamethasone 10 Mg/Ml Vial) 6 mg IV DAILY [facility] Stop: 03/01/21 10:01 Last Admin: 02/22/21 08:43 Dose: 6 mg Documented by: Enoxaparin Sodium (Enoxaparin 40 Mg/0.4 Ml Syringe) 40 mg SC BID [facility] Last Admin: 02/22/21 08:42 Dose: 40 mg Documented by: Remdesivir 100 mg/ Sodium (Chloride) 250 mls @ 125 mls/hr IV QHS [facility]; Protocol Stop: 02/24/21 23:59 Last Infusion: 02/21/21 23:34 Dose: Infused Documented by: Sodium Chloride () 250 mls @ 15 mls/hr IV .[id number] PRN PRN Reason: Saline Flush Last Admin: 02/22/21 08:38 Dose: 15 mls/hr Documented by: Propofol (Diprivan) 1,000 mg in 100 mls @ 7.83 mls/hr CONT INF .Q12H [facility]; Protocol Last Admin: 02/22/21 12:54 Dose: 10 mcg/kg/min, 7.8 mls/hr Documented by: Fentanyl Citrate 1,000 mcg/ (Sodium Chloride) 100 mls @ 5 mls/hr CONT INF .Q20H [facility]; Protocol Last Admin: 02/22/21 12:28 Dose: 125 mcg/hr, 12.5 mls/hr Documented by: Pantoprazole Sodium 40 mg/ (Sodium Chloride) 110 mls @ 330 mls/hr IV Q24 [facility] Last Infusion: 02/22/21 09:03 Dose: Infused Documented by: Enteral Nutritional Formula (Vital High Protein) 1,000 mls @ 65 mls/hr GT .[id number] [facility] Last Admin: 02/22/21 10:56 Dose: 65 mls/hr Documented by: Piperacillin Sod/Tazobactam (Sod 3.375 gm/ Sodium Chloride) 50 mls @ 12.5 mls/hr IV Q8 [facility]IGUEL Ondansetron HCl (Ondansetron 4 Mg/2 Ml Vial) 4 mg IV Q8H PRN PRN PRN Reason: NAUSEA/VOMITING Senna/Docusate Sodium (Senna/Docusate Sodium 1 Tablet) 2 tablet PO BID [facility] Last Admin: 02/22/21 10:56 Dose: 2 tablet Documented by: Sodium Chloride (0.9% Saline Lock 10 Ml Syringe) 10 - 40 ml IV UD PRN PRN Reason: SALINE FLUSH Last Admin: 02/21/21 09:17 Dose: 40 ml Documented by: STROKE Vital Signs/Narrative: Vital Signs Temp Pulse Resp BP BP Pulse Ox 02/22/21 12:00 100.2 F H 71 16 113/59 L 113/59 L 94 02/22/21 11:20 85 02/22/21 11:03 79 18 90 02/22/21 11:00 100.4 F H 76 24 H 126/64 H 94 02/22/21 10:00 100.1 F H 78 16 146/77 H 92 02/22/21 09:28 75 19 H 96 Medical Necessity - Tobacco Use Smoking Status: Never smoker Assessment/Plan All Active Problems Acute respiratory failure with hypoxia (Acute) Acute bilateral COVID-19 pneumonia (Acute) #Acute hypoxic respiratory failure due to COVID 19 infection * remains intubated and sedated. RASS score today is 0 * on remdesivir and decadron * critical care on board * currently sedated. RASS score is -0. * breathing treatments with bronchodilators * started on IV zosyn, due to significant bilateral pulmonary infiltrates. * sedated with fentanyl and propofol * #Acute bilateral COVID 19 pneumonia: as above. #Elevated D dimer: CTA of the chest was negative for PE. #Nutrition: on tube feeding via orogastric tube GI prophylaxis: on PPI DVT prophylaxis: on lovenox SC 40mg bid. Inpatient E&M: [id number] [facility] L3
[2021-02-22] MEDS: Furosemide 40 MG/4 ML Vial IV (13:37)
[2021-02-22 22:45] LABS: Bedside Glucose 192 mg/dL (70-110)
[2021-02-23] VITALS (31 sets, daily range): BP systolic 95–143; BP diastolic 58–79; PULSE 59–91; RESP 15–22; TEMP 37–37.7; O2SAT 89–97
[2021-02-23 03:50] LABS: Absolute Lymphocyte Count 1.03 X10^3/uL (0.83-4.51); Absolute Neutrophil Count 7.5 X10^3/uL (2.0-7.7); Basophil# 0.02 X10^3/uL; Basophil% 0.2 % (0-1); Eosinophil# 0.01 X10^3/uL; Eosinophils% 0.1 % (0-5); Hematocrit 40.8 % (37-47); Hemoglobin 12.6 g/dL (12.0-15.0); Lymphocyte # 1.03 X10^3/ul (4.0); Lymphocyte % 10.9 % (19-41); Mean Corp Hgb Conc 30.9 g/dL (32-36); Mean Corpuscular Hgb 28.3 pg (27.0-32.0); Mean Corpuscular Volume 91.5 fL (81-99); Mean Platelet Vol. 10.8 fl (6.2-12.0); Monocyte# 0.73 X10^3/uL; Monocyte% 7.8 % (0-10); NRBC Flagged by Analyzer 0 % (0-5); Neutrophil # 7.54 X10^3/uL (2.7-7.7); Neutrophil % 80.1 % (47-70); Platelet Count 261 K/mm3 (150-450); RBC Distribution Width CV 13.7 % (11.6-14.6); RBC Distribution Width SD 46.5 fl (35.1-43.9); Red Blood Count 4.46 M/mm3 (4.2-5.4); White Blood Count 9.4 K/mm3 (4.4-11.0)
[2021-02-23 04:05] LABS: ALB/GLOB Ratio 0.5 RATIO (0.9-2.4); AST(SGOT) 34 U/L (15-37); Alanine Aminotransfer ALT/SGPT 32 U/L (13-56); Albumin, Serum 2.3 g/dL (3.2-5.0); Alkaline Phosphatase 63 U/L (45-117); Anion Gap 3 (5-15); BUN 35 mg/dL (7-18); BUN/Creat Ratio 49.2 RATIO (10-20); Calcium,Total 7.9 mg/dL (8.5-10.1); Chloride 107 mmol/L (98-107); Creatinine, Serum 0.71 mg/dL (0.55-1.02); EST Glomerular Filtration Rate 88 mL/min (>60); Est Glom Filt Rate - Afr Amer 107 mL/min (>60); Estimated Creatinine Clearance 70.03 ml/min; Globulin 4.4 g/dL (2.2-4.2); Glucose 151 mg/dL (74-106); Potassium 3.6 mmol/L (3.5-5.1); Protein, Total 6.7 g/dL (6.4-8.2); Sodium Level 142 mmol/L (136-145)
[2021-02-23] MEDS: Vital High Protein 1,000 ML 65 ML GT ×2 (05:15→20:59)
--- NOTE | 2021-02-23 05:29 | PCM.PN.INT ---
Subjective: The patient was seen and examined at the bedside this morning. Events from the last 24 hours have been reviewed. The patient currently has a low-grade fever but remains hemodynamically stable. She remains on assist control mode of mechanical ventilation with an FiO2 requirement of 100% and PEEP of 15. The patient was given a one-time dose of IV Lasix yesterday. She remains on remdesivir and Decadron. The patient is currently documented to be overall net +1.4 L for the hospital admission. She is currently tolerating tube feeds. Liver and renal function remain stable. Objective: The patient's most recent lab work, culture data and imaging studies have all been personally reviewed. Rapid coronavirus antigen testing was positive on February 20. Sputum culture was positive for a beta-hemolytic organism. General: - - Remains intubated, sedated and mechanically ventilated. No ventilator dyssynchrony noted. HEENT: Atraumatic, PERRLA, Normocephalic Oral: No Gingival or Mucosal Lesions/ Ulcerations, - - Stable endotracheal and OG tubes. Neck: Supple, No Nodes, Trachea Midline Lungs: No rhonchi, No wheeze, No rales, Diminished Cardiovascular: Regular rate, Regular Rhythm Abdomen: Bowel Sounds Present, Soft, Non Tender, Obese Extremities: No clubbing, No cyanosis, No edema Skin: No breakdown Musculoskeletal: No Muscle Wasting Lymphatic: No Cervical, Supraclavicular, or Inguinal Adenopathy Neurological: - - No focal neurological deficits. Remains sedated on the ventilator. RASS noted to be -1. Vital Signs Temp Pulse Resp BP Pulse Ox 99.4 F H 72 16 107/60 94 02/23/21 05:00 02/23/21 05:00 02/23/21 05:00 02/23/21 05:00 02/23/21 05:00 Oxygen Delivery Method Mechanical Ventilator Weight: 287 lb 11.252 oz Body Mass Index (BMI) 49.1 Intake and Output for Last 24 Hours 02/21/21 02/22/21 02/23/21 23:59 23:59 23:59 Intake Total 2291.75 / 2406.05 1837.48 / 1854.92 435.48 / 435.48 Output Total 900 / 1000 2049 / 2049 225 / 225 Balance 1391.75 / 1406.05 -212.52 / -195.08 210.48 / 210.48 Labs (Last 48 Hours) 02/21/21 02/21/21 02/21/21 05:20 05:20 05:20 WBC 4.9 RBC 4.89 Hgb 13.9 Hct 43.9 MCV 89.8 MCH 28.4 MCHC 31.7 L RDW Std Deviation 44.0 H RDW Coeff of Ramsey 13.3 Plt Count 203 MPV 10.5 Immature Gran % (Auto) 0.600 Neut % (Auto) 80.2 H Lymph % (Auto) 12.1 L [place] % (Auto) 6.9 Eos % (Auto) 0.0 Baso % (Auto) 0.2 Absolute Neuts (auto) 4.0 Absolute Lymphs (auto) 0.60 L Nucleated RBC % 0 Specimen Type Sample Site pH Bicarbonate Actual Total CO2 Base Excess O2 Saturation O2 % ABG pCO2 ABG pO2 Marcio Test Respiration Rate O2 Delivery Device Vent Mode Tidal Volume POC PEEP Sodium 140 Potassium 4.2 Chloride 105 Carbon Dioxide 30.0 Anion Gap 5 BUN 14 Creatinine 0.67 Estim Creat Clear Calc 74.21 Est GFR (MDRD) Af Amer 115 Est GFR (MDRD) Non-Af 95 BUN/Creatinine Ratio 21.0 H Glucose 166 H Calcium 8.1 L Total Bilirubin 0.50 AST 69 H ALT 42 Alkaline Phosphatase 76 Total Creatine Kinase 66 Total Protein 7.3 Albumin 2.8 L Globulin 4.5 H Albumin/Globulin Ratio 0.6 L Triglycerides 63 POC Glucose 02/21/21 02/22/21 02/22/21 09:49 04:25 20:38 WBC RBC Hgb Hct MCV MCH MCHC RDW Std Deviation RDW Coeff of Ramsey Plt Count MPV Immature Gran % (Auto) Neut % (Auto) Lymph % (Auto) [place] % (Auto) Eos % (Auto) Baso % (Auto) Absolute Neuts (auto) Absolute Lymphs (auto) Nucleated RBC % Specimen Type ART Sample Site L Radial pH 7.40 Bicarbonate Actual 26.3 H Total CO2 28 Base Excess 2 O2 Saturation 98 O2 % 100 ABG pCO2 42.4 ABG pO2 99 Marcio Test Positive Respiration Rate 16 O2 Delivery Device Adult Vent Vent Mode AC Tidal Volume 450 POC PEEP 15 Sodium 142 Potassium 3.9 Chloride 108 H Carbon Dioxide 29.0 Anion Gap 5 BUN 35 H Creatinine 0.86 Estim Creat Clear Calc 57.82 Est GFR (MDRD) Af Amer 85 Est GFR (MDRD) Non-Af 70 BUN/Creatinine Ratio 40.5 H Glucose 147 H Calcium 7.9 L Total Bilirubin 0.30 AST 51 H ALT 41 Alkaline Phosphatase 64 Total Creatine Kinase Total Protein 6.5 Albumin 2.4 L Globulin 4.1 Albumin/Globulin Ratio 0.6 L Triglycerides POC Glucose 192 H 02/23/21 02/23/21 03:25 03:25 WBC 9.4 RBC 4.46 Hgb 12.6 Hct 40.8 MCV 91.5 MCH 28.3 MCHC 30.9 L RDW Std Deviation 46.5 H RDW Coeff of [place] 13.7 Plt Count 261 MPV 10.8 Immature Gran % (Auto) 0.900 Neut % (Auto) 80.1 H Lymph % (Auto) 10.9 L [place] % (Auto) 7.8 Eos % (Auto) 0.1 Baso % (Auto) 0.2 Absolute Neuts (auto) 7.5 Absolute Lymphs (auto) 1.03 Nucleated RBC % 0 Specimen Type Sample Site pH Bicarbonate Actual Total CO2 Base Excess O2 Saturation O2 % ABG pCO2 ABG pO2 Marcio Test Respiration Rate O2 Delivery Device Vent Mode Tidal Volume POC PEEP Sodium 142 Potassium 3.6 Chloride 107 Carbon Dioxide 32.0 Anion Gap 3 L BUN 35 H Creatinine 0.71 Estim Creat Clear Calc 70.03 Est GFR (MDRD) Af Amer 107 Est GFR (MDRD) Non-Af 88 BUN/Creatinine Ratio 49.2 H Glucose 151 H Calcium 7.9 L Total Bilirubin 0.40 AST 34 ALT 32 Alkaline Phosphatase 63 Total Creatine Kinase Total Protein 6.7 Albumin 2.3 L Globulin 4.4 H Albumin/Globulin Ratio 0.5 L Triglycerides POC Glucose Microbiology 02/21/21 08:43 Sputum, Expectorated/Coughed Gram Stain - Final 02/21/21 08:43 Sputum, Expectorated/Coughed Respiratory Culture - Preliminary Beta hemolytic organism Clinical Impression(s) from Imaging Studies Chest X-Ray 02/20/21 19:12 IMPRESSION: Bilateral patchy infiltrates. Electronically Signed: Rodger Meneses DO at 19:34 EDT Tel [phone], Service support , Chest CTA 02/20/21 23:19 IMPRESSION: No pulmonary embolism or arterial dissection. Bilateral multifocal pneumonia to include viral pneumonia. Mild cardiomegaly. Small hiatal hernia. Electronically Signed: Rey Andres MD at 0:40 EDT , Service support , Chest X-Ray 02/21/21 08:55 IMPRESSION: 1. Interval placement of endotracheal tube with the tip above the merline. 2. Interval placement of nasogastric tube with the tip below the diaphragm. 3. No change in bilateral pneumonia, pulmonary edema, or ARDS. Electronically Signed: Fransisco Yuen MD at 9:11 EDT Tel , Service support , Chest X-Ray 02/22/21 06:36 IMPRESSION: Slight interval improvement in bilateral interstitial and alveolar opacities. The endotracheal tube has advanced slightly and is now 2.4 cm above the merline. Electronically Signed: Gab Clark MD at 16:55 EDT Tel , Service support , Medical Necessity - Tobacco Use Smoking Status: Never smoker Assessment/Plan All Active Problems Acute respiratory failure with hypoxia (Acute) Acute bilateral COVID-19 pneumonia (Acute) RECOMMENDATIONS: 1. Continue patient on assist control mode of mechanical ventilation and wean FiO2 and PEEP to maintain saturations at or above 90%. 2. Continue remdesivir. Continue to monitor liver and renal function accordingly. 3. Complete 10-day course of Decadron. 4. Continue tube feeds as tolerated. 5. Reattempt gentle diuresis today with IV Lasix. 6. Continue appropriate ICU prophylaxis. IMPRESSIONS: 1. Acute hypoxemic respiratory failure secondary to COVID-19 pneumonia The patient presented to the hospital with 1 week of respiratory symptoms and was found to be positive for coronavirus. The patient was started on remdesivir and Decadron. Although the patient was initiated on noninvasive positive pressure ventilatory support, her oxygen saturations were marginal, despite being on maximum noninvasive support with an FiO2 of 100%. Therefore, the patient was intubated on the morning of February 21. She has significant bilateral pulmonary infiltrates. The patient will be continued on assist control mode of mechanical ventilation with a goal to wean FiO2 and PEEP to maintain saturations at or above 90%. We will continue current supportive measures as noted above along with tube feeds as tolerated. 2. Super morbid obesity at high risk for sleep disordered breathing Complicates care, management, recovery and prognosis. Continue supportive measures as noted above. TIME: 40 minutes of critical care time, independent of procedures, was spent addressing the patient's acute hypoxemic respiratory failure, COVID-19 pneumonia, super morbid obesity, review of all data and collaboration with the care team. ([id number]) [phone]: [id number] Critical care first hour
[2021-02-23] MEDS: Propofol 10MG/Ml 1,000 MG/100 ML Bottle 7.8 MG CONT INF ×3 (05:57→21:17)
[2021-02-23] MEDS: TITRATION PARAMETER CHANGE 1 EACH IV (06:20)
[2021-02-23] MEDS: Furosemide 40 MG/4 ML Vial IV (06:25)
[2021-02-23] MEDS: Enoxaparin 40 MG/0.4 ML Syringe SC ×2 (08:59→20:56)
[2021-02-23] MEDS: dexAMETHasone 10 MG/ML Vial 6 MG IV (08:59)
[2021-02-23] MEDS: Senna/Docusate Sodium 1 Tablet 2 TABLET PO ×2 (09:00→20:57)
[2021-02-23] MEDS: Chlorhexidine 15 ML PO ×2 (10:10→20:55)
--- NOTE | 2021-02-23 12:08 | CASEMGMT ---
Addendum entered by Diana Walker 02/23/21 12:14: SW spoke w/daughter, offered support. She is currently w/her siblings, they all live local. SW explained will remain available for support to family as needed. YVETTE Gaitan Original Note: SW called daughter to offer support, message left. SW remains available for support to daughter and family. YVETTE Gaitan
--- NOTE | 2021-02-23 13:49 | PN_ITS ---
Patient Problems: Active and Suspected Problems Acute respiratory failure with hypoxia (Acute) Acute bilateral COVID-19 pneumonia (Acute) Subjective: Patient seen and examined. She remains intubated and sedated. RASS score 0. Unable to do review of systems as she is intubated and sedated. Patient is able to squeeze squeeze fingers and nod or shake her head in response to questions. Vitals/I&O's: Vital Signs Temp Pulse Resp BP Pulse Ox 99.8 F H 71 16 109/65 97 02/23/21 13:00 02/23/21 13:00 02/23/21 13:00 02/23/21 13:00 02/23/21 13:00 Oxygen Delivery Method Mechanical Ventilator Weight: 288 lb 12.889 oz Body Mass Index (BMI) 49.1 Intake and Output for Last 24 Hours 02/21/21 02/22/21 02/23/21 23:59 23:59 23:59 Intake Total 2291.75 / 2406.05 1837.48 / 1854.92 572.89 / 572.89 Output Total 900 / 1000 2049 / 2049 1625 / 1625 Balance 1391.75 / 1406.05 -212.52 / -195.08 -1052.11 / -1052.11 General: - - intubated, sedated, RASS score is 0 HEENT: Atraumatic, PERRLA, EOMI, Normocephalic Oral: Dry Mucosa, - - OG tube present Neck: Supple, No JVD, Negative Carotid Bruits Lungs: - - diminished breath sounds bibasally, no wheezes or crackles. intubated and sedated. Cardiovascular: Regular rate, Regular Rhythm, Normal S1, Normal S2, No murmurs Abdomen: Bowel Sounds Present, Soft, Non Tender Extremities: No edema, Capillary Refill Less than 3 Seconds Skin: No rashes, No breakdown Musculoskeletal: No Tenderness to Palpation of Joints or Extremities Lymphatic: No Cervical, Supraclavicular, or Inguinal Adenopathy Neurological: Cranial nerves II-XII grossly intact Psych/Mental Status: - - intubated, sedated. RASS score is 0 Microbiology Past 72 Hours 02/21/21 08:43 Sputum, Expectorated/Coughed Gram Stain - Final 02/21/21 08:43 Sputum, Expectorated/Coughed Respiratory Culture - Preliminary Staphylococcus aureus Streptococcus group B Streptococcus pneumoniae 02/20/21 18:52 Mucosa - Nasopharyngeal SARS-CoV-2 Antigen (Rapid) - Final SARS-CoV-2 (COVID 19) Laboratory Results 02/22/21 20:38: POC Glucose 192 H 02/23/21 03:25: Sodium 142, Potassium 3.6, Chloride 107, Carbon Dioxide 32.0, Anion Gap 3 L, BUN 35 H, Creatinine 0.71, Estim Creat Clear Calc 70.03, Est GFR (MDRD) Af Amer 107, Est GFR (MDRD) Non-Af 88, BUN/Creatinine Ratio 49.2 H, Glucose 151 H, Calcium 7.9 L, Total Bilirubin 0.40, AST 34, ALT 32, Alkaline Phosphatase 63, Total Protein 6.7, Albumin 2.3 L, Globulin 4.4 H, Albumin/Globulin Ratio 0.5 L 02/23/21 03:25: WBC 9.4, RBC 4.46, Hgb 12.6, Hct 40.8, MCV 91.5, MCH 28.3, MCHC 30.9 L, RDW Std Deviation 46.5 H, RDW Coeff of Ramsey 13.7, Plt Count 261, MPV 10.8, Immature Gran % (Auto) 0.900, Neut % (Auto) 80.1 H, Lymph % (Auto) 10.9 L, [place] % (Auto) 7.8, Eos % (Auto) 0.1, Baso % (Auto) 0.2, Absolute Neuts (auto) 7.5, Absolute Lymphs (auto) 1.03, Nucleated RBC % 0 Current Medications Acetaminophen (Acetaminophen 325 Mg Tablet) 650 mg PO Q6H PRN PRN PRN Reason: Pain Score 1-10/Temp > 100.7 F Albuterol Sulfate (Albuterol Ih 8.5 Gm (Proair) Inhaler (200 Puffs)) 2 puff INHALATION Q4H PRN PRN PRN Reason: Shortness of breath, wheezing Chlorhexidine Gluconate (Chlorhexidine 15 Ml) 15 ml PO BID [facility] Last Admin: 02/23/21 10:10 Dose: 15 ml Documented by: Dexamethasone Sodium Phosphate (Dexamethasone 10 Mg/Ml Vial) 6 mg IV DAILY [facility] Stop: 03/01/21 10:01 Last Admin: 02/23/21 08:59 Dose: 6 mg Documented by: Enoxaparin Sodium (Enoxaparin 40 Mg/0.4 Ml Syringe) 40 mg SC BID [facility] Last Admin: 02/23/21 08:59 Dose: 40 mg Documented by: Remdesivir 100 mg/ Sodium (Chloride) 250 mls @ 125 mls/hr IV QHS [facility]; Protocol Stop: 02/24/21 23:59 Last Infusion: 02/22/21 22:54 Dose: Infused Documented by: Sodium Chloride () 250 mls @ 15 mls/hr IV .[id number] PRN PRN Reason: Saline Flush Last Infusion: 02/22/21 23:05 Dose: 0 mls/hr Documented by: Propofol (Diprivan) 1,000 mg in 100 mls @ 7.83 mls/hr CONT INF .Q12H [facility]; Protocol Last Admin: 02/23/21 05:57 Dose: 10 mcg/kg/min, 7.8 mls/hr Documented by: Fentanyl Citrate 1,000 mcg/ (Sodium Chloride) 100 mls @ 5 mls/hr CONT INF .Q20H [facility]; Protocol Last Admin: 02/23/21 05:00 Dose: 125 mcg/hr, 12.5 mls/hr Documented by: Pantoprazole Sodium 40 mg/ (Sodium Chloride) 110 mls @ 330 mls/hr IV Q24 [facility] Last Admin: 02/23/21 08:58 Dose: 330 mls/hr Documented by: Enteral Nutritional Formula (Vital High Protein) 1,000 mls @ 65 mls/hr GT .[id number] [facility] Last Admin: 02/23/21 05:15 Dose: 65 mls/hr Documented by: Piperacillin Sod/Tazobactam (Sod 3.375 gm/ Sodium Chloride) 50 mls @ 12.5 mls/hr IV Q8 [facility] Last Admin: 02/23/21 05:20 Dose: 12.5 mls/hr Documented by: Ondansetron HCl (Ondansetron 4 Mg/2 Ml Vial) 4 mg IV Q8H PRN PRN PRN Reason: NAUSEA/VOMITING Senna/Docusate Sodium (Senna/Docusate Sodium 1 Tablet) 2 tablet PO BID [facility] Last Admin: 02/23/21 09:00 Dose: 2 tablet Documented by: Sodium Chloride (0.9% Saline Lock 10 Ml Syringe) 10 - 40 ml IV UD PRN PRN Reason: SALINE FLUSH Last Admin: 02/21/21 09:17 Dose: 40 ml Documented by: STROKE Vital Signs/Narrative: Vital Signs Temp Pulse Resp BP BP Pulse Ox 02/23/21 13:00 99.8 F H 71 16 109/65 97 02/23/21 12:00 99.7 F H 69 16 101/63 101/63 94 02/23/21 11:00 99.7 F H 74 16 121/71 H 91 02/23/21 10:00 100 F H 73 16 110/62 91 Medical Necessity - Tobacco Use Smoking Status: Never smoker Assessment/Plan All Active Problems Acute respiratory failure with hypoxia (Acute) Acute bilateral COVID-19 pneumonia (Acute) #Acute hypoxic respiratory failure due to COVID 19 infection * remains intubated and sedated. RASS score is 0 * on remdesivir and decadron * critical care on board * breathing treatments with bronchodilators * on IV zosyn, due to significant bilateral pulmonary infiltrates. * sedated with fentanyl and propofol * #Acute bilateral COVID 19 pneumonia: as above. #Elevated D dimer: CTA of the chest was negative for PE. #Nutrition: on tube feeding via orogastric tube GI prophylaxis: on PPI DVT prophylaxis: on lovenox SC 40mg bid. Inpatient E&M: [id number] [facility] L3
[2021-02-23] MEDS: Senna/Docusate Sodium 1 Tablet 2 TABLET GT (22:33)
[2021-02-24] VITALS (37 sets, daily range): BP systolic 116–159; BP diastolic 70–93; PULSE 58–84; RESP 16–22; TEMP 36.8–37.6; O2SAT 89–95
[2021-02-24 05:07] LABS: Absolute Lymphocyte Count 0.83 X10^3/uL (0.83-4.51); Absolute Neutrophil Count 8.7 X10^3/uL (2.0-7.7); Basophil# 0.03 X10^3/uL; Basophil% 0.3 % (0-1); Eosinophil# 0.01 X10^3/uL; Eosinophils% 0.1 % (0-5); Hemoglobin 12.5 g/dL (12.0-15.0); Lymphocyte # 0.83 X10^3/ul (4.0); Mean Corp Hgb Conc 31.3 g/dL (32-36); Mean Corpuscular Hgb 29.1 pg (27.0-32.0); Mean Platelet Vol. 10.7 fl (6.2-12.0); Monocyte# 0.68 X10^3/uL; Monocyte% 6.5 % (0-10); NRBC Flagged by Analyzer 0 % (0-5); Neutrophil # 8.72 X10^3/uL (2.7-7.7); Neutrophil % 83.8 % (47-70); Platelet Count 294 K/mm3 (150-450); RBC Distribution Width CV 13.8 % (11.6-14.6); RBC Distribution Width SD 47.5 fl (35.1-43.9); White Blood Count 10.4 K/mm3 (4.4-11.0)
[2021-02-24 05:26] LABS: ALB/GLOB Ratio 0.4 RATIO (0.9-2.4); AST(SGOT) 55 U/L (15-37); Alanine Aminotransfer ALT/SGPT 39 U/L (13-56); Alkaline Phosphatase 63 U/L (45-117); Anion Gap 2 (5-15); BUN 29 mg/dL (7-18); BUN/Creat Ratio 51.3 RATIO (10-20); Calcium,Total 7.8 mg/dL (8.5-10.1); Chloride 107 mmol/L (98-107); Creatinine, Serum 0.56 mg/dL (0.55-1.02); EST Glomerular Filtration Rate 115 mL/min (>60); Est Glom Filt Rate - Afr Amer 139 mL/min (>60); Estimated Creatinine Clearance 88.79 ml/min; Globulin 4.6 g/dL (2.2-4.2); Glucose 158 mg/dL (74-106); Potassium 4.6 mmol/L (3.5-5.1); Protein, Total 6.6 g/dL (6.4-8.2); Sodium Level 142 mmol/L (136-145)
--- NOTE | 2021-02-24 05:47 | PN_ITS ---
Subjective: The patient was seen and examined at the bedside this morning. Events from the last 24 hours have been reviewed. The patient is currently afebrile, hemodynamically stable and maintaining appropriate oxygen saturations on assist control mode of mechanical ventilation with an FiO2 of 90% and PEEP of 14. The patient is currently documented to be overall net +1.3 L for the hospital admission. She remains on remdesivir, Decadron and antimicrobials. Liver and renal function are stable. The patient remains sedated on both propofol and fentanyl but is still alert and able to interact appropriately. Objective: The patient's most recent lab work, culture data and imaging studies have all been personally reviewed. Rapid coronavirus antigen testing was positive on February 20. Sputum culture was positive for a beta-hemolytic organism. General: - - Remains intubated, sedated and mechanically ventilated. No ventilator dyssynchrony. HEENT: Atraumatic, PERRLA, Normocephalic Oral: No Gingival or Mucosal Lesions/ Ulcerations, - - Stable endotracheal and OG tubes. Neck: Supple, No Nodes, Trachea Midline Lungs: No rhonchi, No wheeze, No rales, Diminished Cardiovascular: Regular rate, Regular Rhythm, Normal S1, Normal S2, No murmurs Abdomen: Bowel Sounds Present, Soft, Non Tender, Obese Extremities: No clubbing, No cyanosis, No edema Skin: No breakdown Musculoskeletal: No Tenderness to Palpation of Joints or Extremities Lymphatic: No Cervical, Supraclavicular, or Inguinal Adenopathy Neurological: - - No focal neurological deficits. Sedated on the ventilator. However, she is able to follow simple commands. Vital Signs Temp Pulse Resp BP Pulse Ox 98.7 F 67 18 127/74 H 90 02/24/21 04:00 02/24/21 04:00 02/24/21 04:00 02/24/21 04:00 02/24/21 04:00 Oxygen Delivery Method Mechanical Ventilator Weight: 290 lb 9.108 oz Body Mass Index (BMI) 49.1 Intake and Output for Last 24 Hours 02/22/21 02/23/21 02/24/21 23:59 23:59 23:59 Intake Total 1837.48 / 1854.92 2317.88 / 2338.18 401.5 / 401.5 Output Total 2049 / 2049 2275 / 2515 240 / 240 Balance -212.52 / -195.08 42.88 / -176.82 161.5 / 161.5 Labs (Last 48 Hours) 02/22/21 02/23/21 02/23/21 20:38 03:25 03:25 WBC 9.4 RBC 4.46 Hgb 12.6 Hct 40.8 MCV 91.5 MCH 28.3 MCHC 30.9 L RDW Std Deviation 46.5 H RDW Coeff of Ramsey 13.7 Plt Count 261 MPV 10.8 Immature Gran % (Auto) 0.900 Neut % (Auto) 80.1 H Lymph % (Auto) 10.9 L [place] % (Auto) 7.8 Eos % (Auto) 0.1 Baso % (Auto) 0.2 Absolute Neuts (auto) 7.5 Absolute Lymphs (auto) 1.03 Nucleated RBC % 0 Sodium 142 Potassium 3.6 Chloride 107 Carbon Dioxide 32.0 Anion Gap 3 L BUN 35 H Creatinine 0.71 Estim Creat Clear Calc 70.03 Est GFR (MDRD) Af Amer 107 Est GFR (MDRD) Non-Af 88 BUN/Creatinine Ratio 49.2 H Glucose 151 H Calcium 7.9 L Total Bilirubin 0.40 AST 34 ALT 32 Alkaline Phosphatase 63 Total Protein 6.7 Albumin 2.3 L Globulin 4.4 H Albumin/Globulin Ratio 0.5 L POC Glucose 192 H 02/24/21 02/24/21 05:00 05:00 WBC 10.4 RBC 4.30 Hgb 12.5 Hct 40.0 MCV 93.0 MCH 29.1 MCHC 31.3 L RDW Std Deviation 47.5 H RDW Coeff of [place] 13.8 Plt Count 294 MPV 10.7 Immature Gran % (Auto) 1.300 H Neut % (Auto) 83.8 H Lymph % (Auto) 8.0 L [place] % (Auto) 6.5 Eos % (Auto) 0.1 Baso % (Auto) 0.3 Absolute Neuts (auto) 8.7 H Absolute Lymphs (auto) 0.83 Nucleated RBC % 0 Sodium 142 Potassium 4.6 Chloride 107 Carbon Dioxide 33.0 H Anion Gap 2 L BUN 29 H Creatinine 0.56 Estim Creat Clear Calc 88.79 Est GFR (MDRD) Af Amer 139 Est GFR (MDRD) Non-Af 115 BUN/Creatinine Ratio 51.3 H Glucose 158 H Calcium 7.8 L Total Bilirubin 0.50 AST 55 H ALT 39 Alkaline Phosphatase 63 Total Protein 6.6 Albumin 2.0 L Globulin 4.6 H Albumin/Globulin Ratio 0.4 L POC Glucose Microbiology 02/21/21 08:43 Sputum, Expectorated/Coughed Gram Stain - Final 02/21/21 08:43 Sputum, Expectorated/Coughed Respiratory Culture - Preliminary Staphylococcus aureus Streptococcus group B Streptococcus pneumoniae Clinical Impression(s) from Imaging Studies Chest X-Ray 02/20/21 19:12 IMPRESSION: Bilateral patchy infiltrates. Electronically Signed: Rodger Meneses DO at 19:34 EDT Tel [phone], Service support , Chest CTA 02/20/21 23:19 IMPRESSION: No pulmonary embolism or arterial dissection. Bilateral multifocal pneumonia to include viral pneumonia. Mild cardiomegaly. Small hiatal hernia. Electronically Signed: Rey Andres MD at 0:40 EDT , Service support , Chest X-Ray 02/21/21 08:55 IMPRESSION: 1. Interval placement of endotracheal tube with the tip above the merline. 2. Interval placement of nasogastric tube with the tip below the diaphragm. 3. No change in bilateral pneumonia, pulmonary edema, or ARDS. Electronically Signed: Fransisco Yuen MD at 9:11 EDT Tel , Service support , Chest X-Ray 02/22/21 06:36 IMPRESSION: Slight interval improvement in bilateral interstitial and alveolar opacities. The endotracheal tube has advanced slightly and is now 2.4 cm above the merline. Electronically Signed: Gab Clark MD at 16:55 EDT Tel , Service support , Medical Necessity - Tobacco Use Smoking Status: Never smoker Assessment/Plan All Active Problems Acute respiratory failure with hypoxia (Acute) Acute bilateral COVID-19 pneumonia (Acute) RECOMMENDATIONS: 1. Continue patient on assist control mode of mechanical ventilation and wean FiO2 and PEEP to maintain saturations at or above 90%. 2. Continue remdesivir. Continue to monitor liver and renal function accordingly. 3. Complete 10-day course of Decadron. 4. Continue tube feeds as tolerated. 5. Reattempt gentle diuresis today with IV Lasix. 6. Continue appropriate ICU prophylaxis. IMPRESSIONS: 1. Acute hypoxemic respiratory failure secondary to COVID-19 pneumonia The patient presented to the hospital with 1 week of respiratory symptoms and was found to be positive for coronavirus. The patient was started on remdesivir and Decadron. Although the patient was initiated on noninvasive positive pressure ventilatory support, her oxygen saturations were marginal, despite being on maximum noninvasive support with an FiO2 of 100%. Therefore, the patient was intubated on the morning of February 21. She has significant bilateral pulmonary infiltrates. The patient will be continued on assist control mode of mechanical ventilation with a goal to wean FiO2 and PEEP to maintain saturations at or above 90%. We will continue current supportive measures as noted above along with tube feeds as tolerated. 2. Super morbid obesity at high risk for sleep disordered breathing Complicates care, management, recovery and prognosis. Continue supportive measures as noted above. TIME: 36 minutes of critical care time, independent of procedures, was spent addressing the patient's acute hypoxemic respiratory failure, COVID-19 pneumonia, super morbid obesity, review of all data and collaboration with the care team. ([id number]) [phone]: [id number] Critical care first hour
[2021-02-24] MEDS: Furosemide 40 MG/4 ML Vial IV (06:26)
[2021-02-24] MEDS: TITRATION PARAMETER CHANGE 1 EACH IV (06:29)
[2021-02-24] MEDS: Chlorhexidine 15 ML PO ×2 (08:39→20:51)
[2021-02-24] MEDS: dexAMETHasone 10 MG/ML Vial 6 MG IV (08:39)
[2021-02-24] MEDS: Enoxaparin 40 MG/0.4 ML Syringe SC ×2 (08:40→20:51)
[2021-02-24] MEDS: Polyethylene Glycol 3350 17 GM PACKET GT (08:41)
[2021-02-24] MEDS: Senna/Docusate Sodium 1 Tablet 2 TABLET GT ×2 (08:41→20:51)
[2021-02-24] MEDS: Vital High Protein 1,000 ML 65 ML GT (12:17)
--- NOTE | 2021-02-24 12:44 | PN_ITS ---
Patient Problems: Active and Suspected Problems Acute respiratory failure with hypoxia (Acute) Acute bilateral COVID-19 pneumonia (Acute) Subjective: Patient seen and examined. She remains intubated and sedated. She is now on FiO2 of 90% and PEEP of 14 and and is in cumulative positive balance by 1.3 L. She remains on Decadron, remdesivir and broad-spectrum antibiotics. She remains sedated on propofol and fentanyl and RASS score is 0. Vitals/I&O's: Vital Signs Temp Pulse Resp BP Pulse Ox 98.9 F 70 16 128/71 H 91 02/24/21 09:59 02/24/21 10:00 02/24/21 10:00 02/24/21 09:59 02/24/21 10:00 Oxygen Delivery Method Mechanical Ventilator Weight: 290 lb 9.108 oz Body Mass Index (BMI) 49.1 Intake and Output for Last 24 Hours 02/22/21 02/23/21 02/24/21 23:59 23:59 23:59 Intake Total 1837.48 / 1854.92 2317.88 / 2338.18 658.94 / 658.94 Output Total 2049 / 2049 2275 / 2515 1530 / 1530 Balance -212.52 / -195.08 42.88 / -176.82 -871.06 / -871.06 General: - - intubated, sedated, RASS score is 0 HEENT: Atraumatic, PERRLA, EOMI, Normocephalic Oral: Dry Mucosa, - - OG tube present Neck: Supple, No JVD, Negative Carotid Bruits Lungs: - - diminished breath sounds bibasally, no wheezes or crackles. intubated and sedated. Cardiovascular: Regular rate, Regular Rhythm, Normal S1, Normal S2, No murmurs Abdomen: Bowel Sounds Present, Soft, Non Tender Extremities: No edema, Capillary Refill Less than 3 Seconds Skin: No rashes, No breakdown Musculoskeletal: No Tenderness to Palpation of Joints or Extremities Lymphatic: No Cervical, Supraclavicular, or Inguinal Adenopathy Neurological: Cranial nerves II-XII grossly intact Psych/Mental Status: - - intubated, sedated. RASS score is 0 Microbiology Past 72 Hours 02/21/21 08:43 Sputum, Expectorated/Coughed Gram Stain - Final 02/21/21 08:43 Sputum, Expectorated/Coughed Respiratory Culture - Final Staphylococcus aureus Streptococcus agalactiae (B) Streptococcus pneumoniae Laboratory Results 02/24/21 05:00: Sodium 142, Potassium 4.6, Chloride 107, Carbon Dioxide 33.0 H, Anion Gap 2 L, BUN 29 H, Creatinine 0.56, Estim Creat Clear Calc 88.79, Est GFR (MDRD) Af Amer 139, Est GFR (MDRD) Non-Af 115, BUN/Creatinine Ratio 51.3 H, Glucose 158 H, Calcium 7.8 L, Total Bilirubin 0.50, AST 55 H, ALT 39, Alkaline Phosphatase 63, Total Protein 6.6, Albumin 2.0 L, Globulin 4.6 H, Albumin/Globulin Ratio 0.4 L 02/24/21 05:00: WBC 10.4, RBC 4.30, Hgb 12.5, Hct 40.0, MCV 93.0, MCH 29.1, MCHC 31.3 L, RDW Std Deviation 47.5 H, RDW Coeff of [place] 13.8, Plt Count 294, MPV 10.7, Immature Gran % (Auto) 1.300 H, Neut % (Auto) 83.8 H, Lymph % (Auto) 8.0 L , [place] % (Auto) 6.5, Eos % (Auto) 0.1, Baso % (Auto) 0.3, Absolute Neuts (auto) 8.7 H, Absolute Lymphs (auto) 0.83, Nucleated RBC % 0 Current Medications Acetaminophen (Acetaminophen 650 Mg/20 Ml Udc) 650 mg GT Q6H PRN PRN PRN Reason: Pain Score 1-10/Temp > 100.7 F Albuterol Sulfate (Albuterol Ih 8.5 Gm (Proair) Inhaler (200 Puffs)) 2 puff INHALATION Q4H PRN PRN PRN Reason: Shortness of breath, wheezing Chlorhexidine Gluconate (Chlorhexidine 15 Ml) 15 ml PO BID [facility] Last Admin: 02/24/21 08:39 Dose: 15 ml Documented by: Dexamethasone Sodium Phosphate (Dexamethasone 10 Mg/Ml Vial) 6 mg IV DAILY [facility] Stop: 03/01/21 10:01 Last Admin: 02/24/21 08:39 Dose: 6 mg Documented by: Enoxaparin Sodium (Enoxaparin 40 Mg/0.4 Ml Syringe) 40 mg SC BID [facility] Last Admin: 02/24/21 08:40 Dose: 40 mg Documented by: Remdesivir 100 mg/ Sodium (Chloride) 250 mls @ 125 mls/hr IV QHS [facility]; Protocol Stop: 02/24/21 23:59 Last Infusion: 02/24/21 00:37 Dose: Infused Documented by: Sodium Chloride () 250 mls @ 15 mls/hr IV .[id number] PRN PRN Reason: Saline Flush Last Infusion: 02/24/21 06:27 Dose: 0 mls/hr Documented by: Propofol (Diprivan) 1,000 mg in 100 mls @ 7.83 mls/hr CONT INF .Q12H [facility]; Protocol Last Titration: 02/24/21 07:00 Dose: 10 mcg/kg/min, 7.8 mls/hr Documented by: Fentanyl Citrate 1,000 mcg/ (Sodium Chloride) 100 mls @ 5 mls/hr CONT INF .Q20H [facility]; Protocol Last Titration: 02/24/21 07:00 Dose: 125 mcg/hr, 12.5 mls/hr Documented by: Pantoprazole Sodium 40 mg/ (Sodium Chloride) 110 mls @ 330 mls/hr IV Q24 [facility] Last Infusion: 02/24/21 11:30 Dose: Infused Documented by: Enteral Nutritional Formula (Vital High Protein) 1,000 mls @ 65 mls/hr GT .[id number] [facility] Last Admin: 02/24/21 12:17 Dose: 65 mls/hr Documented by: Piperacillin Sod/Tazobactam (Sod 3.375 gm/ Sodium Chloride) 50 mls @ 12.5 mls/hr IV Q8 [facility] Last Infusion: 02/24/21 10:36 Dose: Infused Documented by: Ondansetron HCl (Ondansetron 4 Mg/2 Ml Vial) 4 mg IV Q8H PRN PRN PRN Reason: NAUSEA/VOMITING Polyethylene Glycol (Polyethylene Glycol 3350 17 Gm Packet) 17 gm GT DAILY [facility] Last Admin: 02/24/21 08:41 Dose: 17 gm Documented by: Senna/Docusate Sodium (Senna/Docusate Sodium 1 Tablet) 2 tablet GT BID [facility] Last Admin: 02/24/21 08:41 Dose: 2 tablet Documented by: Sodium Chloride (0.9% Saline Lock 10 Ml Syringe) 10 - 40 ml IV UD PRN PRN Reason: SALINE FLUSH Last Admin: 02/21/21 09:17 Dose: 40 ml Documented by: STROKE Vital Signs/Narrative: Vital Signs Temp Pulse Resp BP Pulse Ox 02/24/21 10:00 70 16 91 02/24/21 09:59 98.9 F 79 18 128/71 H 90 02/24/21 09:40 69 20 H 91 02/24/21 09:00 98.9 F 84 22 H 152/76 H 91 Medical Necessity - Tobacco Use Smoking Status: Never smoker Assessment/Plan All Active Problems Acute respiratory failure with hypoxia (Acute) Acute bilateral COVID-19 pneumonia (Acute) #Acute hypoxic respiratory failure due to COVID 19 infection * remains intubated and sedated. RASS score is 0. today is day 4 of vent * on remdesivir and decadron * critical care on board * breathing treatments with bronchodilators * on IV zosyn, due to significant bilateral pulmonary infiltrates. * sedated with fentanyl and propofol * on IV lasix as well * #Acute bilateral COVID 19 pneumonia: as above. #Elevated D dimer: CTA of the chest was negative for PE. #Nutrition: on tube feeding via orogastric tube GI prophylaxis: on PPI DVT prophylaxis: on lovenox SC 40mg bid. Inpatient E&M: [id number] [facility] L3
[2021-02-24] MEDS: Propofol 10MG/Ml 1,000 MG/100 ML Bottle 7.8 MG CONT INF ×2 (13:25→20:49)
[2021-02-25] VITALS (35 sets, daily range): BP systolic 113–165; BP diastolic 59–81; PULSE 70–99; RESP 18–25; TEMP 37.4–38.3; O2SAT 84–96
[2021-02-25] MEDS: Acetaminophen 650 MG/20 ML UDC GT ×2 (01:22→10:45)
[2021-02-25] MEDS: Propofol 10MG/Ml 1,000 MG/100 ML Bottle 11.7 MG CONT INF (02:20)
[2021-02-25] MEDS: TITRATION PARAMETER CHANGE 1 EACH IV (03:31)
[2021-02-25 04:20] LABS: Absolute Lymphocyte Count 0.99 X10^3/uL (0.83-4.51); Absolute Neutrophil Count 11.3 X10^3/uL (2.0-7.7); Basophil# 0.03 X10^3/uL; Basophil% 0.2 % (0-1); Eosinophil# 0.03 X10^3/uL; Eosinophils% 0.2 % (0-5); Hematocrit 39.7 % (37-47); Hemoglobin 12.3 g/dL (12.0-15.0); Lymphocyte # 0.99 X10^3/ul (4.0); Lymphocyte % 7.5 % (19-41); Mean Corpuscular Hgb 28.7 pg (27.0-32.0); Mean Corpuscular Volume 92.8 fL (81-99); Mean Platelet Vol. 10.6 fl (6.2-12.0); Monocyte# 0.78 X10^3/uL; Monocyte% 5.9 % (0-10); NRBC Flagged by Analyzer 0 % (0-5); Neutrophil # 11.25 X10^3/uL (2.7-7.7); Neutrophil % 84.9 % (47-70); Platelet Count 325 K/mm3 (150-450); RBC Distribution Width CV 13.6 % (11.6-14.6); RBC Distribution Width SD 46.3 fl (35.1-43.9); Red Blood Count 4.28 M/mm3 (4.2-5.4); White Blood Count 13.3 K/mm3 (4.4-11.0)
[2021-02-25] MEDS: Vital High Protein 1,000 ML 65 ML GT ×2 (04:33→20:01)
[2021-02-25 04:35] LABS: ALB/GLOB Ratio 0.4 RATIO (0.9-2.4); AST(SGOT) 37 U/L (15-37); Alanine Aminotransfer ALT/SGPT 40 U/L (13-56); Alkaline Phosphatase 64 U/L (45-117); Anion Gap 5 (5-15); BUN 27 mg/dL (7-18); BUN/Creat Ratio 46.2 RATIO (10-20); Chloride 106 mmol/L (98-107); Creatinine, Serum 0.58 mg/dL (0.55-1.02); EST Glomerular Filtration Rate 110 mL/min (>60); Est Glom Filt Rate - Afr Amer 134 mL/min (>60); Estimated Creatinine Clearance 85.73 ml/min; Globulin 4.5 g/dL (2.2-4.2); Glucose 175 mg/dL (74-106); Potassium 3.6 mmol/L (3.5-5.1); Protein, Total 6.5 g/dL (6.4-8.2); Sodium Level 145 mmol/L (136-145)
[2021-02-25] MEDS: 0.9% Saline Lock 10 ML Syringe IV (05:48)
--- NOTE | 2021-02-25 07:27 | PN_ITS ---
Subjective: Patient did okay overnight. Patient did develop a fever of unclear etiology. No change in respiratory secretions or urine output has been reported. Patient is still requiring high FiO2 and PEEP to maintain saturations. Nursing reports patient has participated in her care including wiping her face off under supervision, but felt that last night she was not as strong. Patient did have some increased residuals yesterday, but this appeared to improve overnight. Patient has yet to have a bowel movement documented. General: Alert, Cooperative, No apparent distress - Good vent synchrony, - - Morbidly obese HEENT: Atraumatic, PERRLA, EOMI, Normocephalic, - - No scleral icterus or injection noted Oral: Moist Mucosa, No Gingival or Mucosal Lesions/ Ulcerations, - - Crowded posterior pharynx Neck: Supple, No Nodes, Trachea Midline Lungs: No rhonchi, No wheeze, No rales, Diminished Cardiovascular: Regular rate, Regular Rhythm, Normal S1, Normal S2, No murmurs, No rub noted, No Gallop Abdomen: Bowel Sounds Present, Soft, Non Tender, Distended - Slightly, Obese Extremities: No clubbing, No cyanosis, No edema Skin: No rashes, No breakdown Musculoskeletal: No Tenderness to Palpation of Joints or Extremities Lymphatic: No Cervical, Supraclavicular, or Inguinal Adenopathy Neurological: Cranial nerves II-XII grossly intact, Neuro grossly intact, Motor Exam 5/5 strength throughout Psych/Mental Status: Appropriate, Flat Affect Vital Signs Temp Pulse Resp BP Pulse Ox 37.8 C H 84 22 H 122/76 H 93 02/25/21 05:55 02/25/21 06:44 02/25/21 06:44 02/25/21 05:55 02/25/21 06:44 Oxygen Delivery Method Mechanical Ventilator Weight: 132.2 kg Body Mass Index (BMI) 49.1 Intake and Output for Last 24 Hours 02/23/21 02/24/21 02/25/21 23:59 23:59 23:59 Intake Total 2317.88 / 2338.18 2831.91 / 3212.21 873.28 / 873.28 Output Total 2275 / 2515 2550 / 2550 370 / 370 Balance 42.88 / -176.82 281.91 / 662.21 503.28 / 503.28 Labs (Last 48 Hours) 02/24/21 02/24/21 02/25/21 05:00 05:00 04:10 WBC 10.4 RBC 4.30 Hgb 12.5 Hct 40.0 MCV 93.0 MCH 29.1 MCHC 31.3 L RDW Std Deviation 47.5 H RDW Coeff of [place] 13.8 Plt Count 294 MPV 10.7 Immature Gran % (Auto) 1.300 H Neut % (Auto) 83.8 H Lymph % (Auto) 8.0 L [place] % (Auto) 6.5 Eos % (Auto) 0.1 Baso % (Auto) 0.3 Absolute Neuts (auto) 8.7 H Absolute Lymphs (auto) 0.83 Nucleated RBC % 0 Sodium 142 145 Potassium 4.6 3.6 Chloride 107 106 Carbon Dioxide 33.0 H 34.0 H Anion Gap 2 L 5 BUN 29 H 27 H Creatinine 0.56 0.58 Estim Creat Clear Calc 88.79 85.73 Est GFR (MDRD) Af Amer 139 134 Est GFR (MDRD) Non-Af 115 110 BUN/Creatinine Ratio 51.3 H 46.2 H Glucose 158 H 175 H Calcium 7.8 L 8.0 L Total Bilirubin 0.50 0.40 AST 55 H 37 ALT 39 40 Alkaline Phosphatase 63 64 Total Protein 6.6 6.5 Albumin 2.0 L 2.0 L Globulin 4.6 H 4.5 H Albumin/Globulin Ratio 0.4 L 0.4 L 02/25/21 04:10 WBC 13.3 H RBC 4.28 Hgb 12.3 Hct 39.7 MCV 92.8 MCH 28.7 MCHC 31.0 L RDW Std Deviation 46.3 H RDW Coeff of [place] 13.6 Plt Count 325 MPV 10.6 Immature Gran % (Auto) 1.300 H Neut % (Auto) 84.9 H Lymph % (Auto) 7.5 L [place] % (Auto) 5.9 Eos % (Auto) 0.2 Baso % (Auto) 0.2 Absolute Neuts (auto) 11.3 H Absolute Lymphs (auto) 0.99 Nucleated RBC % 0 Sodium Potassium Chloride Carbon Dioxide Anion Gap BUN Creatinine Estim Creat Clear Calc Est GFR (MDRD) Af Amer Est GFR (MDRD) Non-Af BUN/Creatinine Ratio Glucose Calcium Total Bilirubin AST ALT Alkaline Phosphatase Total Protein Albumin Globulin Albumin/Globulin Ratio Microbiology 02/21/21 08:43 Sputum, Expectorated/Coughed Gram Stain - Final 02/21/21 08:43 Sputum, Expectorated/Coughed Respiratory Culture - Final Staphylococcus aureus Streptococcus agalactiae (B) Streptococcus pneumoniae Medical Necessity - Tobacco Use Smoking Status: Never smoker Assessment/Plan All Active Problems Acute respiratory failure with hypoxia (Acute) Acute bilateral COVID-19 pneumonia (Acute) RECOMMENDATIONS: 1. Continue patient on assist control mode of mechanical ventilation and wean FiO2 and PEEP to maintain saturations at or above 90%. 2. Continue remdesivir. Continue to monitor liver and renal function accordingly. 3. Complete 10-day course of Decadron. 4. Continue tube feeds as tolerated. Initiate aggressive bowel regimen 5. Reevaluate Lasix on a daily basis 6. Continue appropriate ICU prophylaxis. IMPRESSIONS: 1. Acute hypoxemic respiratory failure secondary to COVID-19 pneumonia/MSSA pneumonia The patient presented to the hospital with 1 week of respiratory symptoms and was found to be positive for coronavirus. The patient was started on remdesivir and Decadron. Although the patient was initiated on noninvasive positive pressure ventilatory support, her oxygen saturations were marginal, despite being on maximum noninvasive support with an FiO2 of 100%. Therefore, the patient was intubated on the morning of February 21. She has significant bilateral pulmonary infiltrates. The patient will be continued on assist control mode of mechanical ventilation with a goal to wean FiO2 and PEEP to maintain saturations at or above 90%. We will continue current supportive measures as noted above along with tube feeds as tolerated. Pronation was not used secondary to body habitus. Attempt to wean PEEP when patient can tolerate 60% FiO2 or less. 2. New onset fever Unclear etiology at this time. Patient has had no bowel movement documented and is requiring high fentanyl dosing. Will attempt aggressive bowel regimen. If fever persist, evaluation for DVT given COVID-19 may be necessary. Patient is currently on Zosyn therapy, so it is unlikely patient has developed a UTI or line infection. Patient has not been on Precedex. 3. Increased residuals Clinical suspicion for increased residuals secondary to lack of bowel movement. Will be more aggressive with the bowel regimen. Continue with tube feeds for now. No aspiration events have been reported by staff. 4. Super morbid obesity at high risk for sleep disordered breathing Complicates care, management, recovery and prognosis. Continue supportive measures as noted above. TIME: 38 minutes of critical care time, independent of procedures, was spent addressing the patient's acute hypoxemic respiratory failure, COVID-19 pneumonia, super morbid obesity, review of all data and collaboration with the care team. (6 AM to 7 AM) [id number]: [id number] Critical care first hour
[2021-02-25] MEDS: Magnesium Citrate 300 ML GT (08:02)
[2021-02-25] MEDS: Propofol 10MG/Ml 1,000 MG/100 ML Bottle 11.9 MG CONT INF ×3 (10:26→18:35)
[2021-02-25] MEDS: Enoxaparin 40 MG/0.4 ML Syringe SC ×2 (10:27→20:25)
[2021-02-25] MEDS: Polyethylene Glycol 3350 17 GM PACKET GT (10:27)
[2021-02-25] MEDS: Senna/Docusate Sodium 1 Tablet 2 TABLET GT ×2 (10:27→20:25)
[2021-02-25] MEDS: dexAMETHasone 10 MG/ML Vial 6 MG IV (10:28)
[2021-02-25] MEDS: Chlorhexidine 15 ML PO ×2 (10:51→20:25)
--- NOTE | 2021-02-25 13:52 | PN.ID_ITS ---
Patient Problems: Active and Suspected Problems Acute respiratory failure with hypoxia (Acute) Acute bilateral COVID-19 pneumonia (Acute) Subjective: Now on 100% fiO2 on vent, low grade fever - Physical Exam Vitals/I&O's: Vital Signs Temp Pulse Resp BP Pulse Ox 100.0 F H 72 18 113/59 L 90 02/25/21 13:00 02/25/21 13:00 02/25/21 13:00 02/25/21 13:00 02/25/21 13:00 Oxygen Delivery Method Mechanical Ventilator Weight: 132.2 kg Body Mass Index (BMI) 49.1 Intake and Output for Last 24 Hours 02/23/21 02/24/21 02/25/21 23:59 23:59 23:59 Intake Total 2317.88 / 2338.18 2831.91 / 3212.21 1972.68 / 1972.68 Output Total 2275 / 2515 2550 / 2550 795 / 795 Balance 42.88 / -176.82 281.91 / 662.21 1177.68 / 1177.68 General: Non-Cooperative Lungs: Diminished Cardiovascular: Regular rate, Regular Rhythm Abdomen: Soft, Non Tender, Non-Distended Skin: No rashes Microbiology Past 72 Hours 02/21/21 08:43 Sputum, Expectorated/Coughed Gram Stain - Final 02/21/21 08:43 Sputum, Expectorated/Coughed Respiratory Culture - Final Staphylococcus aureus Streptococcus agalactiae (B) Streptococcus pneumoniae Laboratory Results 02/25/21 04:10: Sodium 145, Potassium 3.6, Chloride 106, Carbon Dioxide 34.0 H, Anion Gap 5, BUN 27 H, Creatinine 0.58, Estim Creat Clear Calc 85.73, Est GFR (MDRD) Af Amer 134, Est GFR (MDRD) Non-Af 110, BUN/Creatinine Ratio 46.2 H, Glucose 175 H, Calcium 8.0 L, Total Bilirubin 0.40, AST 37, ALT 40, Alkaline Phosphatase 64, Total Protein 6.5, Albumin 2.0 L, Globulin 4.5 H, Albumin/Globulin Ratio 0.4 L 02/25/21 04:10: WBC 13.3 H, RBC 4.28, Hgb 12.3, Hct 39.7, MCV 92.8, MCH 28.7, MCHC 31.0 L, RDW Std Deviation 46.3 H, RDW Coeff of Ramsey 13.6, Plt Count 325, MPV 10.6, Immature Gran % (Auto) 1.300 H, Neut % (Auto) 84.9 H, Lymph % (Auto) 7.5 L , [place] % (Auto) 5.9, Eos % (Auto) 0.2, Baso % (Auto) 0.2, Absolute Neuts (auto) 11.3 H, Absolute Lymphs (auto) 0.99, Nucleated RBC % 0 Current Medications Acetaminophen (Acetaminophen 650 Mg/20 Ml Udc) 650 mg GT Q6H PRN PRN PRN Reason: Pain Score 1-10/Temp > 100.7 F Last Admin: 02/25/21 10:45 Dose: 650 mg Documented by: Albuterol Sulfate (Albuterol Ih 8.5 Gm (Proair) Inhaler (200 Puffs)) 2 puff INHALATION Q4H PRN PRN PRN Reason: Shortness of breath, wheezing Chlorhexidine Gluconate (Chlorhexidine 15 Ml) 15 ml PO BID [facility] Last Admin: 02/25/21 10:51 Dose: 15 ml Documented by: Dexamethasone Sodium Phosphate (Dexamethasone 10 Mg/Ml Vial) 6 mg IV DAILY [facility] Stop: 03/01/21 10:01 Last Admin: 02/25/21 10:28 Dose: 6 mg Documented by: Enoxaparin Sodium (Enoxaparin 40 Mg/0.4 Ml Syringe) 40 mg SC BID [facility] Last Admin: 02/25/21 10:27 Dose: 40 mg Documented by: Sodium Chloride () 250 mls @ 15 mls/hr IV .[id number] PRN PRN Reason: Saline Flush Last Infusion: 02/25/21 11:50 Dose: 15 mls/hr Documented by: Propofol (Diprivan) 1,000 mg in 100 mls @ 7.932 mls/hr CONT INF .Q12H [facility]; Protocol Last Titration: 02/25/21 13:00 Dose: 15 mcg/kg/min, 11.9 mls/hr Documented by: Fentanyl Citrate 1,000 mcg/ (Sodium Chloride) 100 mls @ 5 mls/hr CONT INF .Q20H [facility]; Protocol Last Titration: 02/25/21 13:00 Dose: 125 mcg/hr, 12.5 mls/hr Documented by: Pantoprazole Sodium 40 mg/ (Sodium Chloride) 110 mls @ 330 mls/hr IV Q24 [facility] Last Infusion: 02/25/21 11:51 Dose: Infused Documented by: Enteral Nutritional Formula (Vital High Protein) 1,000 mls @ 65 mls/hr GT .[id number] [facility] Last Admin: 02/25/21 08:03 Dose: Not Given Documented by: Piperacillin Sod/Tazobactam (Sod 3.375 gm/ Sodium Chloride) 50 mls @ 12.5 mls/hr IV Q8 [facility] Last Admin: 02/25/21 12:59 Dose: 12.5 mls/hr Documented by: Ondansetron HCl (Ondansetron 4 Mg/2 Ml Vial) 4 mg IV Q8H PRN PRN PRN Reason: NAUSEA/VOMITING Polyethylene Glycol (Polyethylene Glycol 3350 17 Gm Packet) 17 gm GT DAILY [facility] Last Admin: 02/25/21 10:27 Dose: 17 gm Documented by: Senna/Docusate Sodium (Senna/Docusate Sodium 1 Tablet) 2 tablet GT BID [facility] Last Admin: 02/25/21 10:27 Dose: 2 tablet Documented by: Sodium Chloride (0.9% Saline Lock 10 Ml Syringe) 10 - 40 ml IV UD PRN PRN Reason: SALINE FLUSH Last Admin: 02/25/21 05:48 Dose: 30 ml Documented by: Medical Necessity - Tobacco Use Smoking Status: Never smoker Route of nutrition/ use of supplements: [] Nutritional Intake: [] IV Site: [] [place]a Catheter: [] - Assessment/Plan Antibiotics: [] Assessment/Plan: [] Active and Suspected Problems Acute respiratory failure with hypoxia (Acute) Acute bilateral COVID-19 pneumonia (Acute) covid with hypoxia, resp failure - on dex, remdesivir, lovenox 40mg bid. CT neg for PE. Sputum with mssa, GBS, strep pneumo. On zosyn. Critically ill. Will check PCT, bnp, trop in AM. Will follow
--- NOTE | 2021-02-25 16:21 | PCM.PN.HOSP ---
Patient Problems: Active and Suspected Problems Acute respiratory failure with hypoxia (Acute) Acute bilateral COVID-19 pneumonia (Acute) Subjective: Patient remains intubated, sedated. Vitals/I&O's: Vital Signs Temp Pulse Resp BP Pulse Ox 99.9 F H 75 20 H 120/66 94 02/25/21 16:00 02/25/21 16:00 02/25/21 16:00 02/25/21 16:00 02/25/21 16:00 Oxygen Delivery Method Mechanical Ventilator Weight: 132.2 kg Body Mass Index (BMI) 49.1 Intake and Output for Last 24 Hours 02/23/21 02/24/21 02/25/21 23:59 23:59 23:59 Intake Total 2317.88 / 2338.18 2831.91 / 3212.21 2213.06 / 2213.06 Output Total 2275 / 2515 2550 / 2550 1020 / 1020 Balance 42.88 / -176.82 281.91 / 662.21 1193.06 / 1193.06 General: - - Patient is sedated and intubated on a ventilator HEENT: Atraumatic, PERRLA, Normocephalic, EAC Clear Oral: Moist Mucosa Neck: Supple, Trachea Midline, Thyroid Normal Size and Texture Lungs: No rhonchi, No wheeze, No rales, Diminished - Diffusely Cardiovascular: Regular rate, Regular Rhythm, Normal S1, Normal S2, No murmurs, No Ectopic Activity, No rub noted, No Gallop Abdomen: Bowel Sounds Present, Soft, Non Tender, Non-Distended, Obese Extremities: No clubbing, No cyanosis, Edema - Trace bilateral lower extremities Skin: No rashes, No breakdown, - - PICC right upper extremity clean and dry Musculoskeletal: No Muscle Wasting Neurological: Deep Tendon Reflexes 2+/4 and Symmetrical Psych/Mental Status: - - Unable to assess Microbiology Past 72 Hours 02/21/21 08:43 Sputum, Expectorated/Coughed Gram Stain - Final 02/21/21 08:43 Sputum, Expectorated/Coughed Respiratory Culture - Final Staphylococcus aureus Streptococcus agalactiae (B) Streptococcus pneumoniae Laboratory Results 02/25/21 04:10: Sodium 145, Potassium 3.6, Chloride 106, Carbon Dioxide 34.0 H, Anion Gap 5, BUN 27 H, Creatinine 0.58, Estim Creat Clear Calc 85.73, Est GFR (MDRD) Af Amer 134, Est GFR (MDRD) Non-Af 110, BUN/Creatinine Ratio 46.2 H, Glucose 175 H, Calcium 8.0 L, Total Bilirubin 0.40, AST 37, ALT 40, Alkaline Phosphatase 64, Total Protein 6.5, Albumin 2.0 L, Globulin 4.5 H, Albumin/Globulin Ratio 0.4 L 02/25/21 04:10: WBC 13.3 H, RBC 4.28, Hgb 12.3, Hct 39.7, MCV 92.8, MCH 28.7, MCHC 31.0 L, RDW Std Deviation 46.3 H, RDW Coeff of Ramsey 13.6, Plt Count 325, MPV 10.6, Immature Gran % (Auto) 1.300 H, Neut % (Auto) 84.9 H, Lymph % (Auto) 7.5 L, [place] % (Auto) 5.9, Eos % (Auto) 0.2, Baso % (Auto) 0.2, Absolute Neuts (auto) 11.3 H, Absolute Lymphs (auto) 0.99, Nucleated RBC % 0 Current Medications Acetaminophen (Acetaminophen 650 Mg/20 Ml Udc) 650 mg GT Q6H PRN PRN PRN Reason: Pain Score 1-10/Temp > 100.7 F Last Admin: 02/25/21 10:45 Dose: 650 mg Documented by: Albuterol Sulfate (Albuterol Ih 8.5 Gm (Proair) Inhaler (200 Puffs)) 2 puff INHALATION Q4H PRN PRN PRN Reason: Shortness of breath, wheezing Chlorhexidine Gluconate (Chlorhexidine 15 Ml) 15 ml PO BID [facility] Last Admin: 02/25/21 10:51 Dose: 15 ml Documented by: Dexamethasone Sodium Phosphate (Dexamethasone 10 Mg/Ml Vial) 6 mg IV DAILY [facility] Stop: 03/01/21 10:01 Last Admin: 02/25/21 10:28 Dose: 6 mg Documented by: Enoxaparin Sodium (Enoxaparin 40 Mg/0.4 Ml Syringe) 40 mg SC BID [facility] Last Admin: 02/25/21 10:27 Dose: 40 mg Documented by: Sodium Chloride () 250 mls @ 15 mls/hr IV .[id number] PRN PRN Reason: Saline Flush Last Infusion: 02/25/21 11:50 Dose: 15 mls/hr Documented by: Propofol (Diprivan) 1,000 mg in 100 mls @ 7.932 mls/hr CONT INF .Q12H [facility]; Protocol Last Titration: 02/25/21 15:00 Dose: 15 mcg/kg/min, 11.9 mls/hr Documented by: Fentanyl Citrate 1,000 mcg/ (Sodium Chloride) 100 mls @ 5 mls/hr CONT INF .Q20H [facility]; Protocol Last Titration: 02/25/21 15:00 Dose: 125 mcg/hr, 12.5 mls/hr Documented by: Pantoprazole Sodium 40 mg/ (Sodium Chloride) 110 mls @ 330 mls/hr IV Q24 [facility] Last Infusion: 02/25/21 11:51 Dose: Infused Documented by: Enteral Nutritional Formula (Vital High Protein) 1,000 mls @ 65 mls/hr GT .[id number] [facility] Last Admin: 02/25/21 08:03 Dose: Not Given Documented by: Piperacillin Sod/Tazobactam (Sod 3.375 gm/ Sodium Chloride) 50 mls @ 12.5 mls/hr IV Q8 [facility] Last Admin: 02/25/21 12:59 Dose: 12.5 mls/hr Documented by: Ondansetron HCl (Ondansetron 4 Mg/2 Ml Vial) 4 mg IV Q8H PRN PRN PRN Reason: NAUSEA/VOMITING Polyethylene Glycol (Polyethylene Glycol 3350 17 Gm Packet) 17 gm GT DAILY [facility] Last Admin: 02/25/21 10:27 Dose: 17 gm Documented by: Senna/Docusate Sodium (Senna/Docusate Sodium 1 Tablet) 2 tablet GT BID [facility] Last Admin: 02/25/21 10:27 Dose: 2 tablet Documented by: Sodium Chloride (0.9% Saline Lock 10 Ml Syringe) 10 - 40 ml IV UD PRN PRN Reason: SALINE FLUSH Last Admin: 02/25/21 05:48 Dose: 30 ml Documented by: STROKE Vital Signs/Narrative: Vital Signs Temp Pulse Resp BP Pulse Ox 02/25/21 16:00 99.9 F H 75 20 H 120/66 94 02/25/21 15:29 77 02/25/21 15:00 99.8 F H 78 18 133/75 H 91 02/25/21 14:21 74 23 H 96 02/25/21 14:00 99.8 F H 76 18 122/62 H 95 02/25/21 13:00 100.0 F H 72 18 113/59 L 90 Medical Necessity - Tobacco Use Smoking Status: Never smoker Assessment/Plan All Active Problems Acute respiratory failure with hypoxia (Acute) Acute bilateral COVID-19 pneumonia (Acute) Acute hypoxic respiratory failure secondary to COVID-19 pneumonia/ARDS/MSSA and \Strep pneumoniae/agalactiae pneumonia -Continue remdesivir day 03/20 and Decadron day 03/27 -Patient remains on assist control ventilation with a PEEP of 18 and an FiO2 of 90% -Wean FiO2 and then PEEP once FiO2 is less than 60% -Prone ventilating has not been utilized secondary to patient body habitus -Continue Zosyn -New Lovenox 40 mg twice daily -Continue pulmonary toilet -Appreciate critical care/infectious disease input New onset fever -Continue antibiotics -Blood cultures are pending -Procalcitonin and BNP pending -ID is following D-dimer elevation -CTA was negative for PE on admission Hyperglycemia -No documented history of DM-2 -Likely related to steroids -Check hemoglobin A1c -Blood sugar goal is 140-180 -If blood sugars are consistently greater than one eighty will initiate sliding scale Super morbid obesity -BMI is 50 -Complicates overall care, management, recovery and overall prognosis DVT/GI prophylaxis -Lovenox 40 mg twice daily -Continue Protonix daily CODE STATUS -Full code Inpatient E&M: 15286 Subs Hosp L2
[2021-02-25] MEDS: Bisacodyl 10 MG Suppository RC (17:06)
[2021-02-26] VITALS (40 sets, daily range): BP systolic 101–148; BP diastolic 57–89; PULSE 66–96; RESP 17–30; TEMP 37.3–38.7; O2SAT 72–95
[2021-02-26] MEDS: Propofol 10MG/Ml 1,000 MG/100 ML Bottle 11.9 MG CONT INF (02:13)
[2021-02-26] MEDS: Acetaminophen 650 MG/20 ML UDC GT ×2 (04:25→10:25)
[2021-02-26] MEDS: 0.9% Saline Lock 10 ML Syringe IV ×2 (04:42→09:50)
[2021-02-26 04:51] LABS: Absolute Lymphocyte Count 0.87 X10^3/uL (0.83-4.51); Absolute Neutrophil Count 9.5 X10^3/uL (2.0-7.7); Basophil# 0.03 X10^3/uL; Basophil% 0.3 % (0-1); Eosinophil# 0.08 X10^3/uL; Eosinophils% 0.7 % (0-5); Hematocrit 42.4 % (37-47); Lymphocyte # 0.87 X10^3/ul (4.0); Lymphocyte % 7.7 % (19-41); Mean Corp Hgb Conc 30.7 g/dL (32-36); Mean Corpuscular Hgb 28.8 pg (27.0-32.0); Mean Platelet Vol. 10.5 fl (6.2-12.0); Monocyte# 0.61 X10^3/uL; Monocyte% 5.4 % (0-10); NRBC Flagged by Analyzer 0 % (0-5); Neutrophil % 83.7 % (47-70); Platelet Count 341 K/mm3 (150-450); RBC Distribution Width CV 13.5 % (11.6-14.6); RBC Distribution Width SD 46.5 fl (35.1-43.9); Red Blood Count 4.51 M/mm3 (4.2-5.4); White Blood Count 11.3 K/mm3 (4.4-11.0)
[2021-02-26 05:13] LABS: ALB/GLOB Ratio 0.4 RATIO (0.9-2.4); AST(SGOT) 38 U/L (15-37); Alanine Aminotransfer ALT/SGPT 35 U/L (13-56); Alkaline Phosphatase 64 U/L (45-117); Anion Gap 3 (5-15); BUN 25 mg/dL (7-18); BUN/Creat Ratio 46.7 RATIO (10-20); Calcium,Total 8.2 mg/dL (8.5-10.1); Chloride 105 mmol/L (98-107); Creatinine, Serum 0.54 mg/dL (0.55-1.02); EST Glomerular Filtration Rate 122 mL/min (>60); Est Glom Filt Rate - Afr Amer 148 mL/min (>60); Estimated Creatinine Clearance 92.08 ml/min; Globulin 4.8 g/dL (2.2-4.2); Glucose 167 mg/dL (74-106); Potassium 4.2 mmol/L (3.5-5.1); Protein, Total 6.8 g/dL (6.4-8.2); Sodium Level 144 mmol/L (136-145)
[2021-02-26 05:18] LABS: Procalcitonin 0.11 ng/mL (0.00-0.09)
[2021-02-26] MEDS: Furosemide 40 MG/4 ML Vial IV (06:47)
[2021-02-26 07:31] LABS: Base Excess 10 mmol/L (-2 to +2); Bicarbonate 34.4 mmol/L (22-26); Blood Gas Specimen Type ART; FI02 100; Mode AC; O2 Delivery Device ET Tube; PEEP 18; PO2 39 mmHG (75-100); RR 18; SITE L Radial; SO2 73 % (95-99); Total Carbon Dioxide 36 mmol/L; Vt 400; pCO2 52.8 mmHg (35-45); pH 7.42 (7.35-7.45)
[2021-02-26] MEDS: Propofol 10MG/Ml 1,000 MG/100 ML Bottle 15.9 MG CONT INF ×3 (07:45→20:03)
--- NOTE | 2021-02-26 08:00 | RAD_ITS ---
STUDY: X-RAY CHEST REASON FOR EXAM: Female, 65 years old. Hypoxia TECHNIQUE: Single AP portable view of the chest. COMPARISON: Comparison is made with prior study dated 02/22/2021. FINDINGS: An endotracheal tube is seen. The tip is at 2 cm proximal to the merline. An orogastric tube is present with tip below the left hemidiaphragm. A right-sided PICC line catheter is seen with the tip at the junction of the superior vena cava and right atrium. EKG electrodes are seen. Since prior examination, there has been progressive infiltrates in both lungs. There is no demonstrated pleural abnormality. Normal size heart. Normal mediastinum and mayela. Normal visualized pulmonary arteries. Normal visualized aortic arch and descending thoracic aorta. There are diffuse degenerative changes of the visualized thoracic spine. Normal visualized ribs, clavicles, and shoulders. There is no demonstrated abnormality of the visualized soft tissue structures of the upper abdomen. RAD/Chest 1 View (Portable) IMPRESSION: Progressive bilateral pulmonary infiltrates as compared to prior study. The support tubes are in good position. Electronically Signed: Javi Wheeler MD at 8:43 EDT , Service support ,
[2021-02-26 08:08] LABS: Hemoglobin A1c 6.4 % (3.8-5.6)
--- NOTE | 2021-02-26 08:10 | NURSING ---
and children at bedside, this RN and Dr. Cm in room to update on pt status and POC
--- NOTE | 2021-02-26 08:29 | PN_ITS ---
Subjective: Patient did okay overnight. Patient has had worsening oxygenation status. Despite increased PEEP and FiO2, saturations this morning were in the mid 80s. A chest x-ray was obtained showing no lobar collapse. ABG confirmed poor saturations with normal ventilation. Family was called in to be with the patient. Patient did have a fever overnight and reportedly had a small bowel movement. Objective: This morning, patient was transition to APRV and appears to be responding well. Patient still on 100% FiO2, but saturations have improved to 89 to 91%. Patient continues to tolerate tube feeds. General: - - Intubated and sedated. Opens eyes to voice. Morbidly obese. HEENT: Atraumatic, PERRLA, EOMI, Normocephalic, - - Scleral icterus or injection noted Oral: Moist Mucosa, No Gingival or Mucosal Lesions/ Ulcerations, - - Carotid posterior pharynx Neck: Supple, No Nodes, Trachea Midline Lungs: No rhonchi, No wheeze, No rales, Diminished Cardiovascular: Regular rate, Regular Rhythm, Normal S1, Normal S2, No murmurs, No rub noted, No Gallop Abdomen: Bowel Sounds Present, Soft, Non Tender, Non-Distended, Obese Extremities: No clubbing, No cyanosis, Edema - Trace lower extremity Skin: - - No change compared to yesterday Musculoskeletal: No Tenderness to Palpation of Joints or Extremities Lymphatic: No Cervical, Supraclavicular, or Inguinal Adenopathy Neurological: Cranial nerves II-XII grossly intact, Neuro grossly intact, Motor Exam 5/5 strength throughout Psych/Mental Status: Normal Affect, Appropriate Vital Signs Temp Pulse Resp BP Pulse Ox 38.0 C H 80 29 H 111/64 84 02/26/21 08:00 02/26/21 08:05 02/26/21 08:05 02/26/21 08:00 02/26/21 08:05 Oxygen Delivery Method Mechanical Ventilator Weight: 133.3 kg Body Mass Index (BMI) 49.1 Intake and Output for Last 24 Hours 02/24/21 02/25/21 02/26/21 23:59 23:59 23:59 Intake Total 2831.91 / 3212.21 3224.34 / 3248.74 1026.73 / 1026.73 Output Total 2550 / 2550 1470 / 1470 875 / 875 Balance 281.91 / 662.21 1754.34 / 1778.74 151.73 / 151.73 Labs (Last 48 Hours) 02/25/21 02/25/21 02/26/21 04:10 04:10 04:35 WBC 13.3 H RBC 4.28 Hgb 12.3 Hct 39.7 MCV 92.8 MCH 28.7 MCHC 31.0 L RDW Std Deviation 46.3 H RDW Coeff of Ramsey 13.6 Plt Count 325 MPV 10.6 Immature Gran % (Auto) 1.300 H Neut % (Auto) 84.9 H Lymph % (Auto) 7.5 L [place] % (Auto) 5.9 Eos % (Auto) 0.2 Baso % (Auto) 0.2 Absolute Neuts (auto) 11.3 H Absolute Lymphs (auto) 0.99 Nucleated RBC % 0 Specimen Type Sample Site pH Bicarbonate Actual Total CO2 Base Excess O2 Saturation O2 % ABG pCO2 ABG pO2 Respiration Rate O2 Delivery Device Vent Mode Tidal Volume POC PEEP Crit Call To/Read Back Sodium 145 144 Potassium 3.6 4.2 Chloride 106 105 Carbon Dioxide 34.0 H 36.0 H Anion Gap 5 3 L BUN 27 H 25 H Creatinine 0.58 0.54 L Estim Creat Clear Calc 85.73 92.08 Est GFR (MDRD) Af Amer 134 148 Est GFR (MDRD) Non-Af 110 122 BUN/Creatinine Ratio 46.2 H 46.7 H Glucose 175 H 167 H Hemoglobin A1c Calcium 8.0 L 8.2 L Total Bilirubin 0.40 0.50 AST 37 38 H ALT 40 35 Alkaline Phosphatase 64 64 Troponin I < 0.015 B-Natriuretic Peptide Total Protein 6.5 6.8 Albumin 2.0 L 2.0 L Globulin 4.5 H 4.8 H Albumin/Globulin Ratio 0.4 L 0.4 L Procalcitonin 02/26/21 02/26/21 02/26/21 04:35 04:35 04:35 WBC 11.3 H RBC 4.51 Hgb 13.0 Hct 42.4 MCV 94.0 MCH 28.8 MCHC 30.7 L RDW Std Deviation 46.5 H RDW Coeff of Ramsey 13.5 Plt Count 341 MPV 10.5 Immature Gran % (Auto) 2.200 H Neut % (Auto) 83.7 H Lymph % (Auto) 7.7 L [place] % (Auto) 5.4 Eos % (Auto) 0.7 Baso % (Auto) 0.3 Absolute Neuts (auto) 9.5 H Absolute Lymphs (auto) 0.87 Nucleated RBC % 0 Specimen Type Sample Site pH Bicarbonate Actual Total CO2 Base Excess O2 Saturation O2 % ABG pCO2 ABG pO2 Respiration Rate O2 Delivery Device Vent Mode Tidal Volume POC PEEP Crit Call To/Read Back Sodium Potassium Chloride Carbon Dioxide Anion Gap BUN Creatinine Estim Creat Clear Calc Est GFR (MDRD) Af Amer Est GFR (MDRD) Non-Af BUN/Creatinine Ratio Glucose Hemoglobin A1c Calcium Total Bilirubin AST ALT Alkaline Phosphatase Troponin I B-Natriuretic Peptide Pending Total Protein Albumin Globulin Albumin/Globulin Ratio Procalcitonin 0.11 H 02/26/21 02/26/21 04:35 07:25 WBC RBC Hgb Hct MCV MCH MCHC RDW Std Deviation RDW Coeff of Ramsey Plt Count MPV Immature Gran % (Auto) Neut % (Auto) Lymph % (Auto) [place] % (Auto) Eos % (Auto) Baso % (Auto) Absolute Neuts (auto) Absolute Lymphs (auto) Nucleated RBC % Specimen Type ART Sample Site L Radial pH 7.42 Bicarbonate Actual 34.4 H Total CO2 36 Base Excess 10 H O2 Saturation 73 L O2 % 100 ABG pCO2 52.8 H ABG pO2 39 L* Respiration Rate 18 O2 Delivery Device ET Tube Vent Mode AC Tidal Volume 400 POC PEEP 18 Crit Call To/Read Back Yes Sodium Potassium Chloride Carbon Dioxide Anion Gap BUN Creatinine Estim Creat Clear Calc Est GFR (MDRD) Af Amer Est GFR (MDRD) Non-Af BUN/Creatinine Ratio Glucose Hemoglobin A1c 6.4 H Calcium Total Bilirubin AST ALT Alkaline Phosphatase Troponin I B-Natriuretic Peptide Total Protein Albumin Globulin Albumin/Globulin Ratio Procalcitonin Microbiology 02/21/21 08:43 Sputum, Expectorated/Coughed Gram Stain - Final 02/21/21 08:43 Sputum, Expectorated/Coughed Respiratory Culture - Final Staphylococcus aureus Streptococcus agalactiae (B) Streptococcus pneumoniae Medical Necessity - Tobacco Use Smoking Status: Never smoker Assessment/Plan All Active Problems Acute respiratory failure with hypoxia (Acute) Acute bilateral COVID-19 pneumonia (Acute) RECOMMENDATIONS: 1. Continue patient on APRV mode of mechanical ventilation and wean FiO2 and PEEP to maintain saturations at or above 90%. 2. Continue remdesivir. Continue to monitor liver and renal function a ccordingly. 3. Complete 10-day course of Decadron. 4. Continue tube feeds as tolerated. Continue aggressive bowel regimen 5. Reevaluate Lasix on a daily basis. Dose Lasix today 6. Continue appropriate ICU prophylaxis. IMPRESSIONS: 1. Acute hypoxemic respiratory failure secondary to COVID-19 pneumonia/MSSA pneumonia The patient presented to the hospital with 1 week of respiratory symptoms and was found to be positive for coronavirus. The patient was started on remdesivir and Decadron. Although the patient was initiated on noninvasive positive pressure ventilatory support, her oxygen saturations were marginal, despite being on maximum noninvasive support with an FiO2 of 100%. Therefore, the patient was intubated on the morning of February 21. She has significant bilateral pulmonary infiltrates. The patient will be continued on assist control mode of mechanical ventilation with a goal to wean FiO2 and PEEP to maintain saturations at or above 90%. We will continue current supportive measures as noted above along with tube feeds as tolerated. Pronation was not used secondary to body habitus. Patient currently on APRV to maintain saturations. Did discuss with family at the bedside they voiced understanding. 2. New onset fever Unclear etiology at this time. Patient has had no bowel movement documented and is requiring high fentanyl dosing. Will attempt aggressive bowel regimen. If fever persist, evaluation for DVT given COVID-19 may be necessary. Patient is currently on Zosyn therapy, so it is unlikely patient has developed a UTI or line infection. Patient has not been on Precedex. Infectious diseases following 3. Increased residuals Clinical suspicion for increased residuals secondary to lack of bowel movement. Will be more aggressive with the bowel regimen. Continue with tube feeds for now. No aspiration events have been reported by staff. 4. Super morbid obesity at high risk for sleep disordered breathing Complicates care, management, recovery and prognosis. Continue supportive measures as noted above. TIME: 40 minutes of critical care time, independent of procedures, was spent addressing the patient's acute hypoxemic respiratory failure, COVID-19 pneumonia, super morbid obesity, review of all data and collaboration with the care team. (7 AM to 8:30 AM) [id number]: [id number] Critical care first hour
[2021-02-26 08:33] LABS: BNP,B-Type NATRIURETIC PEPTIDE 86.3 pg/mL (0-100)
[2021-02-26] MEDS: Chlorhexidine 15 ML PO ×2 (09:48→20:39)
[2021-02-26] MEDS: Senna/Docusate Sodium 1 Tablet 2 TABLET GT ×2 (09:49→20:38)
[2021-02-26] MEDS: Polyethylene Glycol 3350 17 GM PACKET GT (09:49)
[2021-02-26] MEDS: Enoxaparin 40 MG/0.4 ML Syringe SC ×2 (09:49→20:38)
[2021-02-26] MEDS: dexAMETHasone 10 MG/ML Vial 6 MG IV (09:49)
[2021-02-26] MEDS: Vital High Protein 1,000 ML 65 ML GT (09:54)
[2021-02-26 10:05] LABS: Base Excess 13 mmol/L (-2 to +2); Bicarbonate 37.1 mmol/L (22-26); Blood Gas Specimen Type ART; FI02 100; Mode BiLevel; O2 Delivery Device ET Tube; PO2 53 mmHG (75-100); RR 12; SITE L Radial; SO2 87 % (95-99); Total Carbon Dioxide 39 mmol/L; pCO2 55.9 mmHg (35-45); pH 7.43 (7.35-7.45)
--- NOTE | 2021-02-26 12:36 | CPS ---
critical values ABG given to @7:33am.
--- NOTE | 2021-02-26 14:22 | PCM.PN.HOSP ---
Patient Problems: Active and Suspected Problems Acute respiratory failure with hypoxia (Acute) Acute bilateral COVID-19 pneumonia (Acute) Vitals/I&O's: Vital Signs Temp Pulse Resp BP Pulse Ox 101.6 F H 81 18 101/57 L 92 02/26/21 13:00 02/26/21 13:00 02/26/21 13:00 02/26/21 13:00 02/26/21 13:00 Oxygen Delivery Method Mechanical Ventilator Weight: 133.3 kg Body Mass Index (BMI) 49.1 Intake and Output for Last 24 Hours 02/24/21 02/25/21 02/26/21 23:59 23:59 23:59 Intake Total 2831.91 / 3212.21 3224.34 / 3248.74 1756.84 / 1756.84 Output Total 2550 / 2550 1470 / 1470 1675 / 1675 Balance 281.91 / 662.21 1754.34 / 1778.74 81.84 / 81.84 General: Well developed, Well nourished, - - Morbidly obese white female, lying in bed intubated and sedated, currently on bilevel ventilation HEENT: Atraumatic, PERRLA, EOMI, Normocephalic, EAC Clear Oral: - - ET tube in place Neck: Supple, Trachea Midline, Thyroid Normal Size and Texture, - - Short thick neck Lungs: No rhonchi, No wheeze, Diminished - Diffusely, Rales - Mild at bilateral bases Cardiovascular: Regular rate, Regular Rhythm, Normal S1, Normal S2, No murmurs, No Ectopic Activity, No rub noted, No Gallop Abdomen: Bowel Sounds Present, Soft, Non Tender, Non-Distended, Obese Extremities: No clubbing, No cyanosis, Capillary Refill Less than 3 Seconds, Edema, Peripheral Pulses Normal Skin: No rashes, No breakdown Musculoskeletal: No Tenderness to Palpation of Joints or Extremities, No Muscle Wasting, Arthritic Changes Microbiology Past 72 Hours 02/25/21 14:26 Sputum, Induced/Lukens Gram Stain - Final 02/25/21 14:26 Sputum, Induced/Lukens Respiratory Culture - Preliminary Staphylococcus aureus 02/21/21 08:43 Sputum, Expectorated/Coughed Gram Stain - Final 02/21/21 08:43 Sputum, Expectorated/Coughed Respiratory Culture - Final Staphylococcus aureus Streptococcus agalactiae (B) Streptococcus pneumoniae Laboratory Results 02/26/21 04:35: Sodium 144, Potassium 4.2, Chloride 105, Carbon Dioxide 36.0 H, Anion Gap 3 L, BUN 25 H, Creatinine 0.54 L, Estim Creat Clear Calc 92.08, Est GFR (MDRD) Af Amer 148, Est GFR (MDRD) Non-Af 122, BUN/Creatinine Ratio 46.7 H, Glucose 167 H, Calcium 8.2 L, Total Bilirubin 0.50, AST 38 H, ALT 35, Alkaline Phosphatase 64, Troponin I < 0.015, Total Protein 6.8, Albumin 2.0 L, Globulin 4.8 H, Albumin/Globulin Ratio 0.4 L 02/26/21 04:35: B-Natriuretic Peptide 86.3 02/26/21 04:35: Procalcitonin 0.11 H 02/26/21 04:35: WBC 11.3 H, RBC 4.51, Hgb 13.0, Hct 42.4, MCV 94.0, MCH 28.8, MCHC 30.7 L, RDW Std Deviation 46.5 H, RDW Coeff of Ramsey 13.5, Plt Count 341, MPV 10.5, Immature Gran % (Auto) 2.200 H, Neut % (Auto) 83.7 H, Lymph % (Auto) 7.7 L, Blackford % (Auto) 5.4, Eos % (Auto) 0.7, Baso % (Auto) 0.3, Absolute Neuts (auto) 9.5 H, Absolute Lymphs (auto) 0.87, Nucleated RBC % 0 02/26/21 04:35: Hemoglobin A1c 6.4 H 02/26/21 07:25: Specimen Type ART, Sample Site L Radial, pH 7.42, Bicarbonate Actual 34.4 H, Total CO2 36, Base Excess 10 H, O2 Saturation 73 L, O2 % 100, ABG pCO2 52.8 H, ABG pO2 39 L*, Respiration Rate 18, O2 Delivery Device ET Tube, Vent Mode AC, Tidal Volume 400, POC PEEP 18, Crit Call To/Read Back Yes 02/26/21 09:58: Specimen Type ART, Sample Site L Radial, pH 7.43, Bicarbonate Actual 37.1 H, Total CO2 39, Base Excess 13 H, O2 Saturation 87 L, O2 % 100, ABG pCO2 55.9 H, ABG pO2 53 L, Respiration Rate 12, O2 Delivery Device ET Tube, Vent Mode BiLevel, Clinical Comments Current Medications Acetaminophen (Acetaminophen 650 Mg/20 Ml Udc) 650 mg GT Q6H PRN PRN PRN Reason: Pain Score 1-10/Temp > 100.7 F Last Admin: 02/26/21 10:25 Dose: 650 mg Documented by: Albuterol Sulfate (Albuterol Ih 8.5 Gm (Proair) Inhaler (200 Puffs)) 2 puff INHALATION Q4H PRN PRN PRN Reason: Shortness of breath, wheezing Chlorhexidine Gluconate (Chlorhexidine 15 Ml) 15 ml PO BID [facility] Last Admin: 02/26/21 09:48 Dose: 15 ml Documented by: Dexamethasone Sodium Phosphate (Dexamethasone 10 Mg/Ml Vial) 6 mg IV DAILY [facility] Stop: 03/01/21 10:01 Last Admin: 02/26/21 09:49 Dose: 6 mg Documented by: Enoxaparin Sodium (Enoxaparin 40 Mg/0.4 Ml Syringe) 40 mg SC BID [facility] Last Admin: 02/26/21 09:49 Dose: 40 mg Documented by: Sodium Chloride () 250 mls @ 15 mls/hr IV .[id number] PRN PRN Reason: Saline Flush Last Infusion: 02/26/21 08:53 Dose: Infused Documented by: Propofol (Diprivan) 1,000 mg in 100 mls @ 7.932 mls/hr CONT INF .Q12H [facility]; Protocol Last Titration: 02/26/21 13:00 Dose: 20 mcg/kg/min, 15.9 mls/hr Documented by: Fentanyl Citrate 1,000 mcg/ (Sodium Chloride) 100 mls @ 5 mls/hr CONT INF .Q20H [facility]; Protocol Last Titration: 02/26/21 13:00 Dose: 125 mcg/hr, 12.5 mls/hr Documented by: Pantoprazole Sodium 40 mg/ (Sodium Chloride) 110 mls @ 330 mls/hr IV Q24 [facility] Last Infusion: 02/26/21 10:08 Dose: Infused Documented by: Enteral Nutritional Formula (Vital High Protein) 1,000 mls @ 65 mls/hr GT .[id number] [facility] Last Admin: 02/26/21 09:54 Dose: 65 mls/hr Documented by: Piperacillin Sod/Tazobactam (Sod 3.375 gm/ Sodium Chloride) 50 mls @ 12.5 mls/hr IV Q8 [facility] Last Admin: 02/26/21 13:10 Dose: 12.5 mls/hr Documented by: Ondansetron HCl (Ondansetron 4 Mg/2 Ml Vial) 4 mg IV Q8H PRN PRN PRN Reason: NAUSEA/VOMITING Polyethylene Glycol (Polyethylene Glycol 3350 17 Gm Packet) 17 gm GT DAILY [facility] Last Admin: 02/26/21 09:49 Dose: 17 gm Documented by: Senna/Docusate Sodium (Senna/Docusate Sodium 1 Tablet) 2 tablet GT BID [facility] Last Admin: 02/26/21 09:49 Dose: 2 tablet Documented by: Sodium Chloride (0.9% Saline Lock 10 Ml Syringe) 10 - 40 ml IV UD PRN PRN Reason: SALINE FLUSH Last Admin: 02/26/21 09:50 Dose: 20 ml Documented by: STROKE Vital Signs/Narrative: Vital Signs Temp Pulse Resp BP BP Pulse Ox 02/26/21 13:00 101.6 F H 81 18 101/57 L 92 02/26/21 12:00 101.4 F H 89 18 117/69 88 02/26/21 11:14 96 02/26/21 11:00 101.5 F H 93 18 121/89 H 90 Medical Necessity - Tobacco Use Smoking Status: Never smoker Assessment/Plan All Active Problems Acute respiratory failure with hypoxia (Acute) Acute bilateral COVID-19 pneumonia (Acute) Acute hypoxic respiratory failure secondary to COVID-19 pneumonia/ARDS/MSSA and \Strep pneumoniae/agalactiae pneumonia -Continue remdesivir day 03/20 and Decadron day 04/27 -Patient converted to APRV/Bilevel to maintain saturations-->FiO2 of 100 -Wean FiO2 and then PEEP once FiO2 is less than 60% -Prone ventilating has not been utilized secondary to patient body habitus -Continue Zosyn -Continue Lovenox 40 mg twice daily -Was given a dose of IV Lasix earlier this morning with good response -Continue pulmonary toilet -Appreciate critical care/infectious disease input -Family was able to visit as the situation is somewhat dire and they do understand that she has high risk for decompensation and -CODE STATUS remains full New onset fever -Continue Zosyn -Blood cultures remain pending -Patient remains febrile with T-max of 100.5 -PCT is low at 0.11 -BNP is 86.3 -Troponin is less than 0.015 -ID is following D-dimer elevation -CTA was negative for PE on admission -New Lovenox 40 mg twice daily New DM-2 -Hemoglobin A1c was 6.4 patient had no previous documentation of being diabetic -Exacerbated by Decadron -Blood sugar goal is 140-180 -If blood sugars are consistently greater than 180 will initiate sliding scale Super morbid obesity -BMI is 50 -Complicates overall care, management, recovery and overall prognosis DVT/GI prophylaxis -Lovenox 40 mg twice daily -Continue Protonix daily CODE STATUS -Full code Inpatient E&M: 72838 Subs Hosp L2
--- NOTE | 2021-02-26 17:22 | PHA.PHARE_ITS ---
Consult Pharmacy has been consulted to manage selected antiobiotic: Vancomycin Type of Consult: New start Labs: Sodium 144 mmol/L (136-145) 02/26/21 04:35 Potassium 4.2 mmol/L (3.5-5.1) 02/26/21 04:35 Chloride 105 mmol/L (98-107) 02/26/21 04:35 Carbon Dioxide 36.0 mmol/L (21.0-32.0) H 02/26/21 04:35 Anion Gap 3 (5-15) L 02/26/21 04:35 BUN 25 mg/dL (7-18) H 02/26/21 04:35 Creatinine 0.54 mg/dL (0.55-1.02) L 02/26/21 04:35 Est GFR (MDRD) Af Amer 148 mL/min (>60) 02/26/21 04:35 Est GFR (MDRD) Non-Af 122 mL/min (>60) 02/26/21 04:35 BUN/Creatinine Ratio 46.7 RATIO (10-20) H 02/26/21 04:35 Glucose 167 mg/dL (74-106) H 02/26/21 04:35 Microbiology: Microbiology 02/25/21 14:26 Sputum, Induced/Lukens Gram Stain - Final 02/25/21 14:26 Sputum, Induced/Lukens Respiratory Culture - Preliminary Staphylococcus aureus 02/21/21 08:43 Sputum, Expectorated/Coughed Gram Stain - Final 02/21/21 08:43 Sputum, Expectorated/Coughed Respiratory Culture - Final Staphylococcus aureus Streptococcus agalactiae (B) Streptococcus pneumoniae 02/20/21 18:52 Mucosa - Nasopharyngeal SARS-CoV-2 Antigen (Rapid) - Final SARS-CoV-2 (COVID 19) Weight used for dosin kg Estimated Creatinine Clearance: 130ML/MIN Goal Trough: 15-20 mcg/mL Pharmacy Plan for Drug Dosing: Give initial load (25mg/kg) dose of 2000mg IV x1, then will continue with 2000mg IV q12h. A trough level will be ordered to be drawn before the 4th dose. The patient's CrCl of 130ml/min was calculated using an adjusted body weight of 86 kg. Pharmacy Service will continue to monitor and adjust dosing as required. Follow-Up Labs: Trough Vancomycin Labs to be done on [date and time ordered]: 02/28/21 04:30
[2021-02-27] VITALS (35 sets, daily range): BP systolic 105–155; BP diastolic 56–78; PULSE 60–88; RESP 15–37; TEMP 37.2–38.4; O2SAT 84–95
[2021-02-27] MEDS: Vital High Protein 1,000 ML 65 ML GT ×2 (01:54→20:57)
[2021-02-27] MEDS: Propofol 10MG/Ml 1,000 MG/100 ML Bottle 15.9 MG CONT INF ×5 (01:54→22:53)
[2021-02-27] MEDS: Acetaminophen 650 MG/20 ML UDC GT ×2 (02:42→08:34)
[2021-02-27 04:24] LABS: Absolute Lymphocyte Count 0.93 X10^3/uL (0.83-4.51); Absolute Neutrophil Count 9.7 X10^3/uL (2.0-7.7); Basophil# 0.03 X10^3/uL; Basophil% 0.3 % (0-1); Eosinophils% 1.7 % (0-5); Hematocrit 38.8 % (37-47); Hemoglobin 11.6 g/dL (12.0-15.0); Lymphocyte # 0.93 X10^3/ul (4.0); Mean Corp Hgb Conc 29.9 g/dL (32-36); Mean Corpuscular Hgb 28.1 pg (27.0-32.0); Mean Corpuscular Volume 93.9 fL (81-99); Mean Platelet Vol. 10.2 fl (6.2-12.0); Monocyte# 0.56 X10^3/uL; Monocyte% 4.8 % (0-10); NRBC Flagged by Analyzer 0 % (0-5); Neutrophil % 83.1 % (47-70); Platelet Count 292 K/mm3 (150-450); RBC Distribution Width CV 13.7 % (11.6-14.6); RBC Distribution Width SD 47.1 fl (35.1-43.9); Red Blood Count 4.13 M/mm3 (4.2-5.4); White Blood Count 11.7 K/mm3 (4.4-11.0)
[2021-02-27 05:56] LABS: Anion Gap 0 (5-15); BUN 28 mg/dL (7-18); BUN/Creat Ratio 45.3 RATIO (10-20); Calcium,Total 8.6 mg/dL (8.5-10.1); Chloride 104 mmol/L (98-107); Creatinine, Serum 0.62 mg/dL (0.55-1.02); EST Glomerular Filtration Rate 104 mL/min (>60); Est Glom Filt Rate - Afr Amer 125 mL/min (>60); Glucose 161 mg/dL (74-106); Magnesium 2.2 mg/dL (1.6-2.6); Phosphorus 3.8 mg/dL (2.5-4.9); Potassium 4.1 mmol/L (3.5-5.1); Sodium Level 142 mmol/L (136-145)
--- NOTE | 2021-02-27 07:18 | VDLE_ITS ---
Reason For Study: Swelling RIGHT LEFT CFV, FV and PopV compressible. CFV, FV and PopV compressible. T/P Trunk is compressible. T/P Trunk is compressible. PTV is compressible. PTV is compressible. RT PerV is compressible. LT PerV is compressible. Procedure Acute deep vein thrombosis is noted in the This is a venous duplex using B-mode, color left soleus vein. flow and spectral Doppler. Exam performed portable in ICU/CCU. The exam was abbreviated due to the COVID 19 protocol. A preliminary report was called and/or faxed to [facility]. VL/Venous Duplex US - Issac Extrem Interpretation Summary There is no evidence of right lower extremity deep vein thrombosis. Acute deep venous thrombosis left soleus vein Patent and compressible bilateral great saphenous vein COVID-19 protocol utilized Ordering Physician: Alfred Cm Performed By: Mikki Cueto RVT
--- NOTE | 2021-02-27 07:20 | VDUE_ITS ---
Reason For Study: Swelling Right Proximal Jugular vein is compressible. Subclavian vein is compressible. Right Lower Arm Right radial vein is compressible. Right ulnar vein is compressible. Right Arm Axillary vein is compressible. Right brachial vein is compressible. Right cephalic vein is compressible. PICC Line noted with the basilic vein. Acute superficial vein thrombosis is noted in the right basilic vein at origin and prox. Basilic vein at mid bicep and distally is compressible with flow noted. Patient Safety Prelim to [facility]. The exam was abbreviated due to the COVID 19 protocol. VL/Venous Duplex US, Unilateral Interpretation Summary There is no evidence of right upper extremity deep vein thrombosis. Superficial thrombophlebitis right upper extremity basilic vein proximally near its origin. PICC line is not ed within the basilic vein. Ordering Physician: Alfred Cm Performed By: Mikki Cueto RVT ?
--- NOTE | 2021-02-27 08:23 | PCM.PN.INT ---
Subjective: Patient did okay overnight. Patient did have some bowel movements and no residuals have been reported. Patient has been febrile, but remains hemodynamically stable. Patient is still requiring 100% FiO2 to maintain saturations on APRV. Objective: Repeat sputum cultures once again showing MSSA. General: Alert, Cooperative, - - Follows commands and shakes heads appropriately. Morbidly obese. HEENT: Atraumatic, PERRLA, EOMI, Normocephalic, - - Slight scleral injection without icterus Oral: Moist Mucosa, No Gingival or Mucosal Lesions/ Ulcerations Neck: Supple, No Nodes, Trachea Midline Lungs: No rhonchi, No wheeze, No rales, Diminished Cardiovascular: Regular rate, Regular Rhythm, Normal S1, Normal S2, No murmurs, No rub noted, No Gallop Abdomen: Bowel Sounds Present, Soft, Non Tender, Non-Distended, Obese Extremities: No clubbing, No cyanosis, Edema Skin: No rashes, No breakdown Musculoskeletal: No Tenderness to Palpation of Joints or Extremities Lymphatic: No Cervical, Supraclavicular, or Inguinal Adenopathy Neurological: Cranial nerves II-XII grossly intact, Neuro grossly intact, Motor Exam 5/5 strength throughout Psych/Mental Status: Normal Affect, Appropriate Vital Signs Temp Pulse Resp BP Pulse Ox 37.9 C H 85 37 H 121/60 H 90 02/27/21 06:00 02/27/21 07:04 02/27/21 07:04 02/27/21 06:00 02/27/21 07:04 Oxygen Delivery Method Mechanical Ventilator Weight: 135.6 kg Body Mass Index (BMI) 49.1 Intake and Output for Last 24 Hours 02/25/21 02/26/21 02/27/21 23:59 23:59 23:59 Intake Total 3224.34 / 3248.74 3358.96 / 3712.36 1564.80 / 1564.80 Output Total 1470 / 1470 2000 / 2200 400 / 400 Balance 1754.34 / 1778.74 1358.96 / 1512.36 1164.80 / 1164.80 Labs (Last 48 Hours) 02/26/21 02/26/21 02/26/21 04:35 04:35 04:35 WBC RBC Hgb Hct MCV MCH MCHC RDW Std Deviation RDW Coeff of Ramsey Plt Count MPV Immature Gran % (Auto) Neut % (Auto) Lymph % (Auto) Smyth % (Auto) Eos % (Auto) Baso % (Auto) Absolute Neuts (auto) Absolute Lymphs (auto) Nucleated RBC % Specimen Type Sample Site pH Bicarbonate Actual Total CO2 Base Excess O2 Saturation O2 % ABG pCO2 ABG pO2 Respiration Rate O2 Delivery Device Vent Mode Tidal Volume POC PEEP Crit Call To/Read Back Clinical Comments Sodium 144 Potassium 4.2 Chloride 105 Carbon Dioxide 36.0 H Anion Gap 3 L BUN 25 H Creatinine 0.54 L Estim Creat Clear Calc 92.08 Est GFR (MDRD) Af Amer 148 Est GFR (MDRD) Non-Af 122 BUN/Creatinine Ratio 46.7 H Glucose 167 H Hemoglobin A1c Calcium 8.2 L Phosphorus Magnesium Total Bilirubin 0.50 AST 38 H ALT 35 Alkaline Phosphatase 64 Troponin I < 0.015 B-Natriuretic Peptide 86.3 Total Protein 6.8 Albumin 2.0 L Globulin 4.8 H Albumin/Globulin Ratio 0.4 L Procalcitonin 0.11 H 02/26/21 02/26/21 02/26/21 04:35 04:35 07:25 WBC 11.3 H RBC 4.51 Hgb 13.0 Hct 42.4 MCV 94.0 MCH 28.8 MCHC 30.7 L RDW Std Deviation 46.5 H RDW Coeff of Ramsey 13.5 Plt Count 341 MPV 10.5 Immature Gran % (Auto) 2.200 H Neut % (Auto) 83.7 H Lymph % (Auto) 7.7 L Smyth % (Auto) 5.4 Eos % (Auto) 0.7 Baso % (Auto) 0.3 Absolute Neuts (auto) 9.5 H Absolute Lymphs (auto) 0.87 Nucleated RBC % 0 Specimen Type ART Sample Site L Radial pH 7.42 Bicarbonate Actual 34.4 H Total CO2 36 Base Excess 10 H O2 Saturation 73 L O2 % 100 ABG pCO2 52.8 H ABG pO2 39 L* Respiration Rate 18 O2 Delivery Device ET Tube Vent Mode AC Tidal Volume 400 POC PEEP 18 Crit Call To/Read Back Yes Clinical Comments Sodium Potassium Chloride Carbon Dioxide Anion Gap BUN Creatinine Estim Creat Clear Calc Est GFR (MDRD) Af Amer Est GFR (MDRD) Non-Af BUN/Creatinine Ratio Glucose Hemoglobin A1c 6.4 H Calcium Phosphorus Magnesium Total Bilirubin AST ALT Alkaline Phosphatase Troponin I B-Natriuretic Peptide Total Protein Albumin Globulin Albumin/Globulin Ratio Procalcitonin 02/26/21 02/27/21 02/27/21 09:58 04:15 04:15 WBC 11.7 H RBC 4.13 L Hgb 11.6 L Hct 38.8 MCV 93.9 MCH 28.1 MCHC 29.9 L RDW Std Deviation 47.1 H RDW Coeff of Ramsey 13.7 Plt Count 292 MPV 10.2 Immature Gran % (Auto) 2.100 H Neut % (Auto) 83.1 H Lymph % (Auto) 8.0 L Smyth % (Auto) 4.8 Eos % (Auto) 1.7 Baso % (Auto) 0.3 Absolute Neuts (auto) 9.7 H Absolute Lymphs (auto) 0.93 Nucleated RBC % 0 Specimen Type ART Sample Site L Radial pH 7.43 Bicarbonate Actual 37.1 H Total CO2 39 Base Excess 13 H O2 Saturation 87 L O2 % 100 ABG pCO2 55.9 H ABG pO2 53 L Respiration Rate 12 O2 Delivery Device ET Tube Vent Mode BiLevel Tidal Volume POC PEEP Crit Call To/Read Back Clinical Comments Sodium 142 Potassium 4.1 Chloride 104 Carbon Dioxide 38.0 H Anion Gap 0 L BUN 28 H Creatinine 0.62 Estim Creat Clear Calc 80.20 Est GFR (MDRD) Af Amer 125 Est GFR (MDRD) Non-Af 104 BUN/Creatinine Ratio 45.3 H Glucose 161 H Hemoglobin A1c Calcium 8.6 Phosphorus 3.8 Magnesium 2.2 Total Bilirubin AST ALT Alkaline Phosphatase Troponin I B-Natriuretic Peptide Total Protein Albumin Globulin Albumin/Globulin Ratio Procalcitonin Microbiology 02/25/21 14:26 Sputum, Induced/Lukens Gram Stain - Final 02/25/21 14:26 Sputum, Induced/Lukens Respiratory Culture - Final Staphylococcus aureus Clinical Impression(s) from Imaging Studies Chest X-Ray 02/26/21 08:00 IMPRESSION: Progressive bilateral pulmonary infiltrates as compared to prior study. The support tubes are in good position. Electronically Signed: Javi Wheeler MD at 8:43 EDT , Service support , Medical Necessity - Tobacco Use Smoking Status: Never smoker Assessment/Plan All Active Problems Acute respiratory failure with hypoxia (Acute) Acute bilateral COVID-19 pneumonia (Acute) RECOMMENDATIONS: 1. Continue patient on APRV mode of mechanical ventilation and wean FiO2 and PEEP to maintain saturations at or above 90%. 2. Completed remdesivir. 3. Complete 10-day course of Decadron. 4. Continue tube feeds as tolerated. Continue aggressive bowel regimen 5. Reevaluate Lasix on a daily basis. Dose Lasix today 6. Continue appropriate ICU prophylaxis. 7. Defer to infectious disease on continued staph aureus in sputum IMPRESSIONS: 1. Acute hypoxemic respiratory failure secondary to COVID-19 pneumonia/MSSA pneumonia The patient presented to the hospital with 1 week of respiratory symptoms and was found to be positive for coronavirus. The patient was started on remdesivir and Decadron. Although the patient was initiated on noninvasive positive pressure ventilatory support, her oxygen saturations were marginal, despite being on maximum noninvasive support with an FiO2 of 100%. Therefore, the patient was intubated on the morning of February 21. She has significant bilateral pulmonary infiltrates. The patient will be continued on assist control mode of mechanical ventilation with a goal to wean FiO2 and PEEP to maintain saturations at or above 90%. We will continue current supportive measures as noted above along with tube feeds as tolerated. Pronation was not used secondary to body habitus. Patient currently on APRV to maintain saturations. Patient continues to grow staph aureus in the sputum. It is unclear if this is leading to fever. 2. New onset fever Unclear etiology at this time. Patient has had no bowel movement documented and is requiring high fentanyl dosing. Will attempt aggressive bowel regimen. If fever persist, evaluation for DVT given COVID-19 may be necessary. Infectious diseases following. Patient continues to have MSSA in the sputum despite 7 days of antibiotics. Will check for possible DVTs. 3. Increased residuals Improved. Clinical suspicion for increased residuals secondary to lack of bowel movement. Will be more aggressive with the bowel regimen. Continue with tube feeds for now. No aspiration events have been reported by staff. 4. Super morbid obesity at high risk for sleep disordered breathing Complicates care, management, recovery and prognosis. Continue supportive measures as noted above. TIME: 39 minutes of critical care time, independent of procedures, was spent addressing the patient's acute hypoxemic respiratory failure, COVID-19 pneumonia, super morbid obesity, review of all data and collaboration with the care team. (5:30 AM to 6:30 AM) [id number]: [id number] Critical care first hour
[2021-02-27] MEDS: Senna/Docusate Sodium 1 Tablet 2 TABLET GT ×2 (08:30→21:00)
[2021-02-27] MEDS: Chlorhexidine 15 ML PO ×2 (08:30→20:58)
[2021-02-27] MEDS: 0.9% Saline Lock 10 ML Syringe IV ×2 (08:30→21:01)
[2021-02-27] MEDS: dexAMETHasone 10 MG/ML Vial 6 MG IV (08:30)
[2021-02-27] MEDS: Enoxaparin 40 MG/0.4 ML Syringe SC (08:30)
[2021-02-27] MEDS: Polyethylene Glycol 3350 17 GM PACKET GT ×2 (08:30→21:00)
[2021-02-27] MEDS: Furosemide 40 MG/4 ML Vial IV (08:34)
--- NOTE | 2021-02-27 13:37 | PN.ID_ITS ---
Patient Problems: Active and Suspected Problems Acute respiratory failure with hypoxia (Acute) Acute bilateral COVID-19 pneumonia (Acute) Subjective: O2 slightly improved, fever overnight, on vent - Physical Exam Vitals/I&O's: Vital Signs Temp Pulse Resp BP Pulse Ox 100.3 F H 74 18 109/60 93 02/27/21 12:00 02/27/21 12:00 02/27/21 12:00 02/27/21 12:00 02/27/21 12:00 Oxygen Delivery Method Mechanical Ventilator Weight: 135.6 kg Body Mass Index (BMI) 49.1 Intake and Output for Last 24 Hours 02/25/21 02/26/21 02/27/21 23:59 23:59 23:59 Intake Total 3224.34 / 3248.74 3358.96 / 3712.36 1851.85 / 1851.85 Output Total 1470 / 1470 1999 / 2200 1325 / 1325 Balance 1754.34 / 1778.74 1358.96 / 1512.36 526.85 / 526.85 General: No apparent distress Lungs: Clear to auscultation, Diminished Cardiovascular: Regular rate, Regular Rhythm Abdomen: Soft, Non Tender, Non-Distended Skin: No rashes Microbiology Past 72 Hours 02/25/21 14:48 Blood Culture (Wb) - Right Hand Blood Culture - Preliminary No growth in 48 hours. 02/25/21 14:30 Blood Culture (Wb) - Pic Blood Culture - Preliminary No growth in 48 hours. 02/25/21 14:26 Sputum, Induced/Lukens Gram Stain - Final 02/25/21 14:26 Sputum, Induced/Lukens Respiratory Culture - Final Staphylococcus aureus Laboratory Results 02/27/21 04:15: WBC 11.7 H, RBC 4.13 L, Hgb 11.6 L, Hct 38.8, MCV 93.9, MCH 28.1, MCHC 29.9 L, RDW Std Deviation 47.1 H, RDW Coeff of Ramsey 13.7, Plt Count 292, MPV 10.2, Immature Gran % (Auto) 2.100 H, Neut % (Auto) 83.1 H, Lymph % (Auto) 8.0 L, [place] % (Auto) 4.8, Eos % (Auto) 1.7, Baso % (Auto) 0.3, Absolute Neuts (auto) 9.7 H, Absolute Lymphs (auto) 0.93, Nucleated RBC % 0 02/27/21 04:15: Sodium 142, Potassium 4.1, Chloride 104, Carbon Dioxide 38.0 H, Anion Gap 0 L, BUN 28 H, Creatinine 0.62, Estim Creat Clear Calc 80.20, Est GFR (MDRD) Af Amer 125, Est GFR (MDRD) Non-Af 104, BUN/Creatinine Ratio 45.3 H, Glucose 161 H, Calcium 8.6, Phosphorus 3.8, Magnesium 2.2 Current Medications Acetaminophen (Acetaminophen 650 Mg/20 Ml Udc) 650 mg GT Q6H PRN PRN PRN Reason: Pain Score 1-10/Temp > 100.7 F Last Admin: 02/27/21 08:34 Dose: 650 mg Documented by: Albuterol Sulfate (Albuterol Ih 8.5 Gm (Proair) Inhaler (200 Puffs)) 2 puff INHALATION Q4H PRN PRN PRN Reason: Shortness of breath, wheezing Chlorhexidine Gluconate (Chlorhexidine 15 Ml) 15 ml PO BID [facility] Last Admin: 02/27/21 08:30 Dose: 15 ml Documented by: Dexamethasone Sodium Phosphate (Dexamethasone 10 Mg/Ml Vial) 6 mg IV DAILY [facility] Stop: 03/01/21 10:01 Last Admin: 02/27/21 08:30 Dose: 6 mg Documented by: Enoxaparin Sodium (Enoxaparin 40 Mg/0.4 Ml Syringe) 40 mg SC BID [facility] Last Admin: 02/27/21 08:30 Dose: 40 mg Documented by: Sodium Chloride () 250 mls @ 15 mls/hr IV .[id number] PRN PRN Reason: Saline Flush Last Infusion: 02/26/21 13:15 Dose: 0 mls/hr Documented by: Propofol (Diprivan) 1,000 mg in 100 mls @ 7.932 mls/hr CONT INF .Q12H [facility]; Protocol Last Titration: 02/27/21 12:00 Dose: 20 mcg/kg/min, 15.9 mls/hr Documented by: Fentanyl Citrate 1,000 mcg/ (Sodium Chloride) 100 mls @ 5 mls/hr CONT INF .Q20H [facility]; Protocol Last Titration: 02/27/21 12:00 Dose: 200 mcg/hr, 20 mls/hr Documented by: Pantoprazole Sodium 40 mg/ (Sodium Chloride) 110 mls @ 330 mls/hr IV Q24 [facility] Last Admin: 02/27/21 11:51 Dose: 330 mls/hr Documented by: Enteral Nutritional Formula (Vital High Protein) 1,000 mls @ 65 mls/hr GT .[id number] [facility] Last Admin: 02/27/21 01:54 Dose: 65 mls/hr Documented by: Piperacillin Sod/Tazobactam (Sod 3.375 gm/ Sodium Chloride) 50 mls @ 12.5 mls/hr IV Q8 [facility] Last Infusion: 02/27/21 10:47 Dose: Infused Documented by: Ondansetron HCl (Ondansetron 4 Mg/2 Ml Vial) 4 mg IV Q8H PRN PRN PRN Reason: NAUSEA/VOMITING Polyethylene Glycol (Polyethylene Glycol 3350 17 Gm Packet) 17 gm GT BID [facility] Senna/Docusate Sodium (Senna/Docusate Sodium 1 Tablet) 2 tablet GT BID [facility] Last Admin: 02/27/21 08:30 Dose: 2 tablet Documented by: Sodium Chloride (0.9% Saline Lock 10 Ml Syringe) 10 - 40 ml IV UD PRN PRN Reason: SALINE FLUSH Last Admin: 02/27/21 08:30 Dose: 10 ml Documented by: Medical Necessity - Tobacco Use Smoking Status: Never smoker Route of nutrition/ use of supplements: [] Nutritional Intake: [] IV Site: [] Ochoa Catheter: [] - Assessment/Plan Antibiotics: [] Assessment/Plan: [] Active and Suspected Problems Acute respiratory failure with hypoxia (Acute) Acute bilateral COVID-19 pneumonia (Acute) covid with hypoxia, resp failure - on dex, remdesivir, lovenox 40mg bid. CT neg for PE. Sputum with mssa, GBS, strep pneumo. On zosyn. Critically ill. Repeat sputum identified as mssa again, will stop vanc. O2 slightly better on 100% fiO2 today. Will follow, d/w nursing
[2021-02-27] MEDS: Bisacodyl 10 MG Suppository RC (14:38)
--- NOTE | 2021-02-27 15:13 | PCM.PN.HOSP ---
Patient Problems: Active and Suspected Problems Acute respiratory failure with hypoxia (Acute) Acute bilateral COVID-19 pneumonia (Acute) Subjective: He is intubated and sedated. Remains on bilevel ventilation with 100% FiO2. Oxygen saturations are in the upper 80s to low 90s. Patient did have 2 small bowel movements and a smear overnight. Vitals/I&O's: Vital Signs Temp Pulse Resp BP Pulse Ox 100.3 F H 73 26 H 109/60 94 02/27/21 12:00 02/27/21 13:30 02/27/21 13:30 02/27/21 12:00 02/27/21 13:30 Oxygen Delivery Method Mechanical Ventilator Weight: 135.6 kg Body Mass Index (BMI) 49.1 Intake and Output for Last 24 Hours 02/25/21 02/26/21 02/27/21 23:59 23:59 23:59 Intake Total 3224.34 / 3248.74 3358.96 / 3712.36 1991.68 / 1990.68 Output Total 1470 / 1470 1999 / 2200 1325 / 1325 Balance 1754.34 / 1778.74 1358.96 / 1512.36 666.68 / 666.68 General: Well developed, Well nourished, - - Intubated and sedated on ventilator, patient does periodically open eyes and follow commands per nursing HEENT: Atraumatic, Normocephalic Oral: Moist Mucosa, - - ET Tube in place Neck: Supple, Trachea Midline, Thyroid Normal Size and Texture Lungs: No wheeze, No rales, Diminished Cardiovascular: Regular rate, Regular Rhythm, Normal S1, Normal S2, No murmurs, No Ectopic Activity, No rub noted, No Gallop Abdomen: Bowel Sounds Present, Soft, Non Tender, Non-Distended, Obese Extremities: No clubbing, No cyanosis, Capillary Refill Less than 3 Seconds, Edema - 1+ pitting bilateral lower extremity edema, Peripheral Pulses Normal Skin: No rashes, No breakdown, - - Right upper extremity PICC-clean and dry Neurological: Deep Tendon Reflexes 2+/4 and Symmetrical, Muscle tone normal Microbiology Past 72 Hours 02/25/21 14:48 Blood Culture (Wb) - Right Hand Blood Culture - Preliminary No growth in 48 hours. 02/25/21 14:30 Blood Culture (Wb) - Pic Blood Culture - Preliminary No growth in 48 hours. 02/25/21 14:26 Sputum, Induced/Lukens Gram Stain - Final 02/25/21 14:26 Sputum, Induced/Lukens Respiratory Culture - Final Staphylococcus aureus Laboratory Results 02/27/21 04:15: WBC 11.7 H, RBC 4.13 L, Hgb 11.6 L, Hct 38.8, MCV 93.9, MCH 28.1, MCHC 29.9 L, RDW Std Deviation 47.1 H, RDW Coeff of Ramsey 13.7, Plt Count 292, MPV 10.2, Immature Gran % (Auto) 2.100 H, Neut % (Auto) 83.1 H, Lymph % (Auto) 8.0 L, [place] % (Auto) 4.8, Eos % (Auto) 1.7, Baso % (Auto) 0.3, Absolute Neuts (auto) 9.7 H, Absolute Lymphs (auto) 0.93, Nucleated RBC % 0 02/27/21 04:15: Sodium 142, Potassium 4.1, Chloride 104, Carbon Dioxide 38.0 H, Anion Gap 0 L, BUN 28 H, Creatinine 0.62, Estim Creat Clear Calc 80.20, Est GFR (MDRD) Af Amer 125, Est GFR (MDRD) Non-Af 104, BUN/Creatinine Ratio 45.3 H, Glucose 161 H, Calcium 8.6, Phosphorus 3.8, Magnesium 2.2 Current Medications Acetaminophen (Acetaminophen 650 Mg/20 Ml Udc) 650 mg GT Q6H PRN PRN PRN Reason: Pain Score 1-10/Temp > 100.7 F Last Admin: 02/27/21 08:34 Dose: 650 mg Documented by: Albuterol Sulfate (Albuterol Ih 8.5 Gm (Proair) Inhaler (200 Puffs)) 2 puff INHALATION Q4H PRN PRN PRN Reason: Shortness of breath, wheezing Chlorhexidine Gluconate (Chlorhexidine 15 Ml) 15 ml PO BID [facility] Last Admin: 02/27/21 08:30 Dose: 15 ml Documented by: Dexamethasone Sodium Phosphate (Dexamethasone 10 Mg/Ml Vial) 6 mg IV DAILY [facility] Stop: 03/01/21 10:01 Last Admin: 02/27/21 08:30 Dose: 6 mg Documented by: Enoxaparin Sodium (Enoxaparin 40 Mg/0.4 Ml Syringe) 40 mg SC BID [facility] Last Admin: 02/27/21 08:30 Dose: 40 mg Documented by: Sodium Chloride () 250 mls @ 15 mls/hr IV .[id number] PRN PRN Reason: Saline Flush Last Infusion: 02/26/21 13:15 Dose: 0 mls/hr Documented by: Propofol (Diprivan) 1,000 mg in 100 mls @ 7.932 mls/hr CONT INF .Q12H [facility]; Protocol Last Titration: 02/27/21 14:02 Dose: 20 mcg/kg/min, 15.9 mls/hr Documented by: Fentanyl Citrate 1,000 mcg/ (Sodium Chloride) 100 mls @ 5 mls/hr CONT INF .Q20H [facility]; Protocol Last Titration: 02/27/21 13:00 Dose: 125 mcg/hr, 12.5 mls/hr Documented by: Pantoprazole Sodium 40 mg/ (Sodium Chloride) 110 mls @ 330 mls/hr IV Q24 [facility] Last Infusion: 02/27/21 12:11 Dose: Infused Documented by: Enteral Nutritional Formula (Vital High Protein) 1,000 mls @ 65 mls/hr GT .[id number] [facility] Last Admin: 02/27/21 01:54 Dose: 65 mls/hr Documented by: Piperacillin Sod/Tazobactam (Sod 3.375 gm/ Sodium Chloride) 50 mls @ 12.5 mls/hr IV Q8 [facility] Last Infusion: 02/27/21 10:47 Dose: Infused Documented by: Ondansetron HCl (Ondansetron 4 Mg/2 Ml Vial) 4 mg IV Q8H PRN PRN PRN Reason: NAUSEA/VOMITING Polyethylene Glycol (Polyethylene Glycol 3350 17 Gm Packet) 17 gm GT BID [facility] Senna/Docusate Sodium (Senna/Docusate Sodium 1 Tablet) 2 tablet GT BID [facility] Last Admin: 02/27/21 08:30 Dose: 2 tablet Documented by: Sodium Chloride (0.9% Saline Lock 10 Ml Syringe) 10 - 40 ml IV UD PRN PRN Reason: SALINE FLUSH Last Admin: 02/27/21 08:30 Dose: 10 ml Documented by: STROKE Vital Signs/Narrative: Vital Signs Temp Pulse Resp BP Pulse Ox 02/27/21 13:30 73 26 H 94 02/27/21 12:00 100.3 F H 74 18 109/60 93 02/27/21 11:27 74 30 H 95 Medical Necessity - Tobacco Use Smoking Status: Never smoker Assessment/Plan All Active Problems Acute respiratory failure with hypoxia (Acute) Acute bilateral COVID-19 pneumonia (Acute) Acute hypoxic on chronic hypercapnic respiratory failure secondary to COVID-19 pneumonia/ARDS/MSSA and \Strep pneumoniae/agalactiae pneumonia -Patient has completed 5 days of remdesivir -Continue Decadron day 05/27 -Patient converted to APRV/Bilevel to maintain saturations-->FiO2 of 100 -Wean FiO2 and then PEEP once FiO2 is less than 60% -Prone ventilating has not been utilized secondary to patient body habitus -Continue Zosyn -Continue Lovenox 40 mg twice daily -Patient was given another dose of Lasix today again with good response -May need to consider Diamox given progressively increasing serum bicarb/alkalosis -Some of this is chronic given her chronic hypercapnia(appears baseline CO2 is between 50 and 55) -Continue pulmonary toilet -Appreciate critical care/infectious disease input -Family was able to visit as the situation is somewhat dire and they do understand that she has high risk for decompensation and -CODE STATUS remains full Persistent fevers -Continue Zosyn -Blood cultures both at 48 hours -Sputum culture remains with MSSA -Vancomycin was discontinued by ID -Patient remains febrile with T-max of 101.1 -PCT is low at 0.11 -BNP is 86.3 -Troponin is less than 0.015 -Bilateral lower extremity Dopplers and right upper extremity ultrasounds are pending given continued fever and no identification of infectious source -ID is following D-dimer elevation -CTA was negative for PE on admission -New Lovenox 40 mg twice daily -Bilateral lower extremity ultrasounds and right upper extremity ultrasound pending New DM-2 -Hemoglobin A1c was 6.4 patient had no previous documentation of being diabetic -Exacerbated by Decadron -Blood sugar goal is 140-180 -Patient remains with good glycemic control at this time Super morbid obesity -BMI is 50 -Complicates overall care, management, recovery and overall prognosis DVT/GI prophylaxis -Lovenox 40 mg twice daily -Continue Protonix daily CODE STATUS -Full code Inpatient E&M: 11695 Subs Hosp L2
[2021-02-27] MEDS: Enoxaparin 150 MG/ML Syringe 135 MG SC (21:00)
[2021-02-28] VITALS (30 sets, daily range): BP systolic 107–159; BP diastolic 57–88; PULSE 64–94; RESP 15–89; TEMP 20–38.7; O2SAT 83–92
[2021-02-28 04:49] LABS: Absolute Lymphocyte Count 0.96 X10^3/uL (0.83-4.51); Basophil# 0.03 X10^3/uL; Basophil% 0.2 % (0-1); Eosinophil# 0.12 X10^3/uL; Hematocrit 39.3 % (37-47); Lymphocyte # 0.96 X10^3/ul (0.83-4.51); Mean Corp Hgb Conc 30.5 g/dL (32-36); Mean Corpuscular Hgb 28.5 pg (27.0-32.0); Mean Corpuscular Volume 93.3 fL (81-99); Mean Platelet Vol. 10.9 fl (6.2-12.0); Monocyte# 0.62 X10^3/uL; Monocyte% 5.1 % (0-10); NRBC Flagged by Analyzer 0 % (0-5); Neutrophil # 10.01 X10^3/uL (2.7-7.7); Platelet Count 276 K/mm3 (150-450); RBC Distribution Width CV 13.6 % (11.6-14.6); RBC Distribution Width SD 46.3 fl (35.1-43.9); Red Blood Count 4.21 M/mm3 (4.2-5.4); White Blood Count 12.1 K/mm3 (4.4-11.0)
[2021-02-28 05:06] LABS: Allen Test Positive; Base Excess 10 mmol/L (-2 to +2); Bicarbonate 34.3 mmol/L (22-26); Blood Gas Specimen Type ART; FI02 100; Mode BiLevel; O2 Delivery Device Adult Vent; PO2 56 mmHG (75-100); PS 5; RR 12; SITE L Radial; SO2 89 % (95-99); Total Carbon Dioxide 36 mmol/L; pCO2 52.7 mmHg (35-45); pH 7.42 (7.35-7.45)
[2021-02-28] MEDS: Propofol 10MG/Ml 1,000 MG/100 ML Bottle 16.2 MG CONT INF (05:11)
[2021-02-28 05:58] LABS: Anion Gap 4 (5-15); BUN 31 mg/dL (7-18); BUN/Creat Ratio 51.9 RATIO (10-20); Calcium,Total 8.2 mg/dL (8.5-10.1); Chloride 103 mmol/L (98-107); EST Glomerular Filtration Rate 108 mL/min (>60); Est Glom Filt Rate - Afr Amer 131 mL/min (>60); Estimated Creatinine Clearance 82.87 ml/min; Glucose 152 mg/dL (74-106); Potassium 4.2 mmol/L (3.5-5.1); Sodium Level 143 mmol/L (136-145)
[2021-02-28] MEDS: TITRATION PARAMETER CHANGE 1 EACH IV (06:03)
[2021-02-28] MEDS: Alteplase 2 MG/2 ML Vial IV ×2 (08:17→10:14)
[2021-02-28] MEDS: Chlorhexidine 15 ML PO ×2 (08:19→20:32)
[2021-02-28] MEDS: Enoxaparin 150 MG/ML Syringe 135 MG SC ×2 (08:19→20:33)
[2021-02-28] MEDS: dexAMETHasone 10 MG/ML Vial 6 MG IV (08:20)
[2021-02-28] MEDS: Polyethylene Glycol 3350 17 GM PACKET GT ×2 (08:20→20:33)
[2021-02-28] MEDS: Senna/Docusate Sodium 1 Tablet 2 TABLET GT ×2 (08:20→20:34)
[2021-02-28] MEDS: Acetaminophen 650 MG/20 ML UDC GT (08:26)
--- NOTE | 2021-02-28 09:47 | PN.ID_ITS ---
Patient Problems: Active and Suspected Problems Acute respiratory failure with hypoxia (Acute) Acute bilateral COVID-19 pneumonia (Acute) Subjective: On vent, low grade fever. Found to have DVT. - Physical Exam Vitals/I&O's: Vital Signs Temp Pulse Resp BP Pulse Ox 100.5 F H 94 28 H 144/81 H 91 02/28/21 06:00 02/28/21 07:10 02/28/21 07:10 02/28/21 06:00 02/28/21 07:10 Oxygen Delivery Method Mechanical Ventilator Weight: 135.4 kg Body Mass Index (BMI) 49.1 Intake and Output for Last 24 Hours 02/26/21 02/27/21 02/28/21 23:59 23:59 23:59 Intake Total 3358.96 / 3712.36 3501.46 / 3529.86 277.37 / 277.37 Output Total 1999 2125 / 2325 500 / 500 Balance 1358.96 / 1512.36 1376.46 / 1204.86 -222.63 / -222.63 General: Non-Cooperative Lungs: Diminished Cardiovascular: Regular rate, Regular Rhythm Abdomen: Soft, Non Tender, Non-Distended Extremities: Edema Skin: No rashes Microbiology Past 72 Hours 02/25/21 14:48 Blood Culture (Wb) - Right Hand Blood Culture - Preliminary No growth in 48 hours. 02/25/21 14:30 Blood Culture (Wb) - Pic Blood Culture - Preliminary No growth in 48 hours. 02/25/21 14:26 Sputum, Induced/Lukens Gram Stain - Final 02/25/21 14:26 Sputum, Induced/Lukens Respiratory Culture - Final Staphylococcus aureus Laboratory Results 02/28/21 04:30: WBC 12.1 H, RBC 4.21, Hgb 12.0, Hct 39.3, MCV 93.3, MCH 28.5, MCHC 30.5 L, RDW Std Deviation 46.3 H, RDW Coeff of Ramsey 13.6, Plt Count 276, MPV 10.9, Immature Gran % (Auto) 2.700 H, Neut % (Auto) 83.0 H, Lymph % (Auto) 8.0 L , [place] % (Auto) 5.1, Eos % (Auto) 1.0, Baso % (Auto) 0.2, Absolute Neuts (auto) 10.0 H, Absolute Lymphs (auto) 0.96, Nucleated RBC % 0 02/28/21 04:30: Sodium 143, Potassium 4.2, Chloride 103, Carbon Dioxide 36.0 H, Anion Gap 4 L, BUN 31 H, Creatinine 0.60, Estim Creat Clear Calc 82.87, Est GFR (MDRD) Af Amer 131, Est GFR (MDRD) Non-Af 108, BUN/Creatinine Ratio 51.9 H, Glucose 152 H, Calcium 8.2 L 02/28/21 05:00: Specimen Type ART, Sample Site L Radial, pH 7.42, Bicarbonate Actual 34.3 H, Total CO2 36, Base Excess 10 H, O2 Saturation 89 L, O2 % 100, ABG pCO2 52.7 H, ABG pO2 56 L, Marcio Test Positive, Respiration Rate 12, O2 Delivery Device Adult Vent, Vent Mode BiLevel, POC Pressure Suppt 5 Current Medications Acetaminophen (Acetaminophen 650 Mg/20 Ml Udc) 650 mg GT Q6H PRN PRN PRN Reason: Pain Score 1-10/Temp > 100.7 F Last Admin: 02/28/21 08:26 Dose: 650 mg Documented by: Albuterol Sulfate (Albuterol Ih 8.5 Gm (Proair) Inhaler (200 Puffs)) 2 puff INHALATION Q4H PRN PRN PRN Reason: Shortness of breath, wheezing Alteplase, Recombinant (Alteplase 2 Mg/2 Ml Vial) 2 mg IV X1 ONE Stop: 02/28/21 09:40 Chlorhexidine Gluconate (Chlorhexidine 15 Ml) 15 ml PO BID [facility] Last Admin: 02/28/21 08:19 Dose: 15 ml Documented by: Dexamethasone Sodium Phosphate (Dexamethasone 10 Mg/Ml Vial) 6 mg IV DAILY [facility] Stop: 03/01/21 10:01 Last Admin: 02/28/21 08:20 Dose: 6 mg Documented by: Enoxaparin Sodium (Enoxaparin 150 Mg/Ml Syringe) 135 mg SC BID [facility] Last Admin: 02/28/21 08:19 Dose: 135 mg Documented by: Sodium Chloride () 250 mls @ 15 mls/hr IV .[id number] PRN PRN Reason: Saline Flush Last Infusion: 02/27/21 20:36 Dose: 0 mls/hr Documented by: Propofol (Diprivan) 1,000 mg in 100 mls @ 8.124 mls/hr CONT INF .Q12H [facility]; Protocol Last Titration: 02/28/21 07:00 Dose: 25 mcg/kg/min, 20.3 mls/hr Documented by: Fentanyl Citrate 1,000 mcg/ (Sodium Chloride) 100 mls @ 5 mls/hr CONT INF .Q20H [facility]; Protocol Last Titration: 02/28/21 07:00 Dose: 125 mcg/hr, 12.5 mls/hr Documented by: Pantoprazole Sodium 40 mg/ (Sodium Chloride) 110 mls @ 330 mls/hr IV Q24 [facility] Last Admin: 02/28/21 08:28 Dose: 330 mls/hr Documented by: Enteral Nutritional Formula (Vital High Protein) 1,000 mls @ 65 mls/hr GT .[id number] [facility] Last Admin: 02/27/21 20:57 Dose: 65 mls/hr Documented by: Cefazolin Sodium 2 gm/ Sodium (Chloride) 110 mls @ 150 mls/hr IV Q8 [facility] Ondansetron HCl (Ondansetron 4 Mg/2 Ml Vial) 4 mg IV Q8H PRN PRN PRN Reason: NAUSEA/VOMITING Polyethylene Glycol (Polyethylene Glycol 3350 17 Gm Packet) 17 gm GT BID [facility] Last Admin: 02/28/21 08:20 Dose: 17 gm Documented by: Senna/Docusate Sodium (Senna/Docusate Sodium 1 Tablet) 2 tablet GT BID [facility] Last Admin: 02/28/21 08:20 Dose: 2 tablet Documented by: Sodium Chloride (0.9% Saline Lock 10 Ml Syringe) 10 - 40 ml IV UD PRN PRN Reason: SALINE FLUSH Last Admin: 02/27/21 21:01 Dose: 10 ml Documented by: Medical Necessity - Tobacco Use Smoking Status: Never smoker Route of nutrition/ use of supplements: [] Nutritional Intake: [] IV Site: [] Ochoa Catheter: [] - Assessment/Plan Antibiotics: [] Assessment/Plan: [] Active and Suspected Problems Acute respiratory failure with hypoxia (Acute) Acute bilateral COVID-19 pneumonia (Acute) covid with hypoxia, resp failure - on dex, completed remdesivir. CT neg for PE. Sputum with mssa, GBS, strep pneumo. On zosyn. Critically ill. Repeat sputum identified as mssa again. Remains on 100% fiO2 today. DVT seen, now on therapeutic anticoagulation. Will narrow zosyn to cefazolin. Will follow
[2021-02-28] MEDS: Propofol 10MG/Ml 1,000 MG/100 ML Bottle 20.3 MG CONT INF ×4 (10:14→20:00)
[2021-02-28] MEDS: Cefazolin 2 GM in 0.9% Normal Saline 100 ML IV ×3 (10:19→21:30)
[2021-02-28 11:48] LABS: CPK Total, Creatine Kinase 12 U/L (26-192); Triglycerides 208 mg/dL
--- NOTE | 2021-02-28 14:12 | PN_ITS ---
Subjective: Patient did okay overnight. Patient is still requiring significant FiO2 and APRV to maintain saturations. Patient does desaturate briefly with rep ositioning, but recovers quickly. Patient continues to have watery bowel movements, but is still tolerating tube feeds. Objective: Venous duplexes were noted. Patient placed on therapeutic Lovenox yesterday. No bleeding reported overnight. General: - - Intubated and sedated. Still opens eyes to voice, but appears to be more distant and slower to respond to commands. HEENT: Atraumatic, PERRLA, EOMI, Normocephalic, - - No scleral icterus or injection noted Oral: Moist Mucosa, No Gingival or Mucosal Lesions/ Ulcerations Neck: Supple, No JVD, No Nodes, Trachea Midline Lungs: No rhonchi, No wheeze, No rales, Diminished Cardiovascular: Regular rate, Regular Rhythm, Normal S1, Normal S2, No murmurs, No rub noted, No Gallop Abdomen: Bowel Sounds Present, Soft, Non Tender, Non-Distended Extremities: No clubbing, No cyanosis, Edema Skin: No rashes, No breakdown Musculoskeletal: No Tenderness to Palpation of Joints or Extremities Lymphatic: No Cervical, Supraclavicular, or Inguinal Adenopathy Neurological: Cranial nerves II-XII grossly intact, Neuro grossly intact Psych/Mental Status: Flat Affect Vital Signs Temp Pulse Resp BP Pulse Ox 38.0 C H 72 20 H 117/67 88 02/28/21 12:00 02/28/21 13:28 02/28/21 13:28 02/28/21 12:00 02/28/21 13:28 Oxygen Delivery Method Mechanical Ventilator Weight: 135.4 kg Body Mass Index (BMI) 49.1 Intake and Output for Last 24 Hours 02/26/21 02/27/21 02/28/21 23:59 23:59 23:59 Intake Total 3358.96 / 3712.36 3501.46 / 3529.86 517.25 / 517.25 Output Total 1999 / 2199 2125 / 2325 1200 / 1200 Balance 1358.96 / 1512.36 1376.46 / 1204.86 -682.75 / -682.75 Labs (Last 48 Hours) 02/27/21 02/27/21 02/28/21 04:15 04:15 04:30 WBC 11.7 H 12.1 H RBC 4.13 L 4.21 Hgb 11.6 L 12.0 Hct 38.8 39.3 MCV 93.9 93.3 MCH 28.1 28.5 MCHC 29.9 L 30.5 L RDW Std Deviation 47.1 H 46.3 H RDW Coeff of Ramsey 13.7 13.6 Plt Count 292 276 MPV 10.2 10.9 Immature Gran % (Auto) 2.100 H 2.700 H Neut % (Auto) 83.1 H 83.0 H Lymph % (Auto) 8.0 L 8.0 L Mclennan % (Auto) 4.8 5.1 Eos % (Auto) 1.7 1.0 Baso % (Auto) 0.3 0.2 Absolute Neuts (auto) 9.7 H 10.0 H Absolute Lymphs (auto) 0.93 0.96 Nucleated RBC % 0 0 Specimen Type Sample Site pH Bicarbonate Actual Total CO2 Base Excess O2 Saturation O2 % ABG pCO2 ABG pO2 Marcio Test Respiration Rate O2 Delivery Device Vent Mode POC Pressure Suppt Sodium 142 Potassium 4.1 Chloride 104 Carbon Dioxide 38.0 H Anion Gap 0 L BUN 28 H Creatinine 0.62 Estim Creat Clear Calc 80.20 Est GFR (MDRD) Af Amer 125 Est GFR (MDRD) Non-Af 104 BUN/Creatinine Ratio 45.3 H Glucose 161 H Calcium 8.6 Phosphorus 3.8 Magnesium 2.2 Total Creatine Kinase Triglycerides 02/28/21 02/28/21 02/28/21 04:30 04:35 05:00 WBC RBC Hgb Hct MCV MCH MCHC RDW Std Deviation RDW Coeff of Ramsey Plt Count MPV Immature Gran % (Auto) Neut % (Auto) Lymph % (Auto) Mclennan % (Auto) Eos % (Auto) Baso % (Auto) Absolute Neuts (auto) Absolute Lymphs (auto) Nucleated RBC % Specimen Type ART Sample Site L Radial pH 7.42 Bicarbonate Actual 34.3 H Total CO2 36 Base Excess 10 H O2 Saturation 89 L O2 % 100 ABG pCO2 52.7 H ABG pO2 56 L Marcio Test Positive Respiration Rate 12 O2 Delivery Device Adult Vent Vent Mode BiLevel POC Pressure Suppt 5 Sodium 143 Potassium 4.2 Chloride 103 Carbon Dioxide 36.0 H Anion Gap 4 L BUN 31 H Creatinine 0.60 Estim Creat Clear Calc 82.87 Est GFR (MDRD) Af Amer 131 Est GFR (MDRD) Non-Af 108 BUN/Creatinine Ratio 51.9 H Glucose 152 H Calcium 8.2 L Phosphorus Magnesium Total Creatine Kinase 12 L Triglycerides 208 H Microbiology 02/25/21 14:48 Blood Culture (Wb) - Right Hand Blood Culture - Preliminary No growth in 48 hours. 02/25/21 14:30 Blood Culture (Wb) - Pic Blood Culture - Preliminary No growth in 48 hours. 02/25/21 14:26 Sputum, Induced/Lukens Gram Stain - Final 02/25/21 14:26 Sputum, Induced/Lukens Respiratory Culture - Final Staphylococcus aureus Clinical Impression(s) from Imaging Studies Venous Doppler Study 02/27/21 07:18 Interpretation Summary There is no evidence of right lower extremity deep vein thrombosis. Acute deep venous thrombosis left soleus vein Patent and compressible bilateral great saphenous vein COVID-19 protocol utilized Ordering Physician: Alfred Cm Performed By: Mikki Cueto RVT Venous Doppler Study 02/27/21 07:20 Interpretation Summary There is no evidence of right upper extremity deep vein thrombosis. Superficial thrombophlebitis right upper extremity basilic vein proximally near its origin. PICC line is noted within the basilic vein. Ordering Physician: Alfred Cm Performed By: Willinger, Mikki, RVT ? Medical Necessity - Tobacco Use Smoking Status: Never smoker Assessment/Plan All Active Problems Acute respiratory failure with hypoxia (Acute) Acute bilateral COVID-19 pneumonia (Acute) RECOMMENDATIONS: 1. Continue patient on APRV mode of mechanical ventilation and wean FiO2 and PEEP to maintain saturations at or above 90%. 2. Completed remdesivir and continue Decadron to complete 10 days 3. Therapeutic Lovenox 4. Continue tube feeds as tolerated. Continue aggressive bowel regimen 5. Reevaluate Lasix on a daily basis. 6. Continue appropriate ICU prophylaxis. 7. Defer to infectious disease on continued staph aureus in sputum IMPRESSIONS: 1. Acute hypoxemic respiratory failure secondary to ARDS secondary to COVID- 19 pneumonia/MSSA pneumonia The patient presented to the hospital with 1 week of respiratory symptoms and was found to be positive for coronavirus. The patient was started on remdesivir and Decadron. Although the patient was initiated on noninvasive positive pressure ventilatory support, her oxygen saturations were marginal, despite being on maximum noninvasive support with an FiO2 of 100%. Therefore, the patient was intubated on the morning of February 21. She has significant bilateral pulmonary infiltrates. The patient will be continued on assist control mode of mechanical ventilation with a goal to wean FiO2 and PEEP to maintain saturations at or above 90%. We will continue current supportive measures as noted above along with tube feeds as tolerated. Pronation was not used secondary to body habitus. Patient currently on APRV to maintain saturations. Patient continues to grow staph aureus in the sputum. Patient was found to have a DVT and was placed on therapeutic Lovenox. Unclear if patient had oxygenation complicated by an element of pulmonary emboli. Patient is too unstable to have a CTA of the chest to verify. We will continue with therapeutic Lovenox. Did discuss with the family that the patient is not improving in the next 24 to 48 hours, prognosis will be significantly worse given her protracted requirements of 100% FiO2 on APRV. 2. New onset fever/DVT associated with PICC Unclear etiology at this time. Patient has had no bowel movement documented and is requiring high fentanyl dosing. Will attempt aggressive bowel regimen. If fever persist, evaluation for DVT given COVID-19 may be necessary. Infectious diseases following. Patient continues to have MSSA in the sputum despite 7 days of antibiotics. . 3. Increased residuals Improved. Clinical suspicion for increased residuals secondary to lack of bowel movement. Will be more aggressive with the bowel regimen. Continue with tube feeds for now. No aspiration events have been reported by staff. 4. Super morbid obesity at high risk for sleep disordered breathing Complicates care, management, recovery and prognosis. Continue supportive measures as noted above. TIME: 42 minutes of critical care time, independent of procedures, was spent addressing the patient's acute hypoxemic respiratory failure, COVID-19 pneumonia, super morbid obesity, review of all data and collaboration with the care team. (7 AM to 9 AM) [id number]: [id number] Critical care first hour
[2021-02-28] MEDS: Vital High Protein 1,000 ML 65 ML GT (15:24)
--- NOTE | 2021-02-28 15:47 | PCM.PN.HOSP ---
Patient Problems: Active and Suspected Problems Acute respiratory failure with hypoxia (Acute) Acute bilateral COVID-19 pneumonia (Acute) Subjective: Remains intubated and sedated on bilevel ventilation at 100%. No significant bowel movement as of yet but remains with good bowel sounds. Vitals/I&O's: Vital Signs Temp Pulse Resp BP Pulse Ox 100.4 F H 72 20 H 117/67 88 02/28/21 12:00 02/28/21 13:28 02/28/21 13:28 02/28/21 12:00 02/28/21 13:28 Oxygen Delivery Method Mechanical Ventilator Weight: 135.4 kg Body Mass Index (BMI) 49.1 Intake and Output for Last 24 Hours 02/26/21 02/27/21 02/28/21 23:59 23:59 23:59 Intake Total 3358.96 / 3712.36 3501.46 / 3529.86 517.25 / 517.25 Output Total 2000 / 2200 2125 / 2325 1200 / 1200 Balance 1358.96 / 1512.36 1376.46 / 1204.86 -682.75 / -682.75 General: - - Intubated and sedated HEENT: Atraumatic, Normocephalic Oral: - - T-tube in place Neck: Supple, Trachea Midline Lungs: No rhonchi, No wheeze, No rales, Diminished Cardiovascular: Regular rate, Regular Rhythm, Normal S1, Normal S2, No murmurs, No Ectopic Activity, No rub noted, No Gallop Abdomen: Bowel Sounds Present, Soft, Non Tender, Non-Distended, Obese Extremities: No clubbing, No cyanosis, Capillary Refill Less than 3 Seconds, Edema - Trace bilateral, Peripheral Pulses Normal Skin: - - Right upper extremity PICC, double-lumen, clean dry Microbiology Past 72 Hours 02/25/21 14:48 Blood Culture (Wb) - Right Hand Blood Culture - Preliminary No growth in 48 hours. 02/25/21 14:30 Blood Culture (Wb) - Pic Blood Culture - Preliminary No growth in 48 hours. 02/25/21 14:26 Sputum, Induced/Lukens Gram Stain - Final 02/25/21 14:26 Sputum, Induced/Lukens Respiratory Culture - Final Staphylococcus aureus Laboratory Results 02/28/21 04:30: WBC 12.1 H, RBC 4.21, Hgb 12.0, Hct 39.3, MCV 93.3, MCH 28.5, MCHC 30.5 L, RDW Std Deviation 46.3 H, RDW Coeff of Ramsey 13.6, Plt Count 276, MPV 10.9, Immature Gran % (Auto) 2.700 H, Neut % (Auto) 83.0 H, Lymph % (Auto) 8.0 L, Montgomery % (Auto) 5.1, Eos % (Auto) 1.0, Baso % (Auto) 0.2, Absolute Neuts (auto) 10.0 H, Absolute Lymphs (auto) 0.96, Nucleated RBC % 0 02/28/21 04:30: Sodium 143, Potassium 4.2, Chloride 103, Carbon Dioxide 36.0 H, Anion Gap 4 L, BUN 31 H, Creatinine 0.60, Estim Creat Clear Calc 82.87, Est GFR (MDRD) Af Amer 131, Est GFR (MDRD) Non-Af 108, BUN/Creatinine Ratio 51.9 H, Glucose 152 H, Calcium 8.2 L 02/28/21 04:35: Total Creatine Kinase 12 L, Triglycerides 208 H 02/28/21 05:00: Specimen Type ART, Sample Site L Radial, pH 7.42, Bicarbonate Actual 34.3 H, Total CO2 36, Base Excess 10 H, O2 Saturation 89 L, O2 % 100, ABG pCO2 52.7 H, ABG pO2 56 L, Marcio Test Positive, Respiration Rate 12, O2 Delivery Device Adult Vent, Vent Mode BiLevel, POC Pressure Suppt 5 Current Medications Acetaminophen (Acetaminophen 650 Mg/20 Ml Udc) 650 mg GT Q6H PRN PRN PRN Reason: Pain Score 1-10/Temp > 100.7 F Last Admin: 02/28/21 08:26 Dose: 650 mg Documented by: Albuterol Sulfate (Albuterol Ih 8.5 Gm (Proair) Inhaler (200 Puffs)) 2 puff INHALATION Q4H PRN PRN PRN Reason: Shortness of breath, wheezing Chlorhexidine Gluconate (Chlorhexidine 15 Ml) 15 ml PO BID MIGUEL Last Admin: 02/28/21 08:19 Dose: 15 ml Documented by: Dexamethasone Sodium Phosphate (Dexamethasone 10 Mg/Ml Vial) 6 mg IV DAILY [facility] Stop: 03/01/21 10:01 Last Admin: 02/28/21 08:20 Dose: 6 mg Documented by: Enoxaparin Sodium (Enoxaparin 150 Mg/Ml Syringe) 135 mg SC BID [facility] Last Admin: 02/28/21 08:19 Dose: 135 mg Documented by: Sodium Chloride () 250 mls @ 15 mls/hr IV .[id number] PRN PRN Reason: Saline Flush Last Infusion: 02/27/21 20:36 Dose: 0 mls/hr Documented by: Propofol (Diprivan) 1,000 mg in 100 mls @ 8.124 mls/hr CONT INF .Q12H MIGUEL; Protocol Last Admin: 02/28/21 12:34 Dose: 25 mcg/kg/min, 20.3 mls/hr Documented by: Fentanyl Citrate 1,000 mcg/ (Sodium Chloride) 100 mls @ 5 mls/hr CONT INF .Q20H MIGUEL; Protocol Last Admin: 02/28/21 10:15 Dose: 125 mcg/hr, 12.5 mls/hr Documented by: Pantoprazole Sodium 40 mg/ (Sodium Chloride) 110 mls @ 330 mls/hr IV Q24 [facility] Last Admin: 02/28/21 08:28 Dose: 330 mls/hr Documented by: Enteral Nutritional Formula (Vital High Protein) 1,000 mls @ 65 mls/hr GT .[id number] [facility] Last Admin: 02/28/21 15:24 Dose: 65 mls/hr Documented by: Cefazolin Sodium 2 gm/ Sodium (Chloride) 110 mls @ 150 mls/hr IV Q8 [facility] Last Infusion: 02/28/21 11:33 Dose: Infused Documented by: Ondansetron HCl (Ondansetron 4 Mg/2 Ml Vial) 4 mg IV Q8H PRN PRN PRN Reason: NAUSEA/VOMITING Polyethylene Glycol (Polyethylene Glycol 3350 17 Gm Packet) 17 gm GT BID [facility] Last Admin: 02/28/21 08:20 Dose: 17 gm Documented by: Senna/Docusate Sodium (Senna/Docusate Sodium 1 Tablet) 2 tablet GT BID [facility] Last Admin: 02/28/21 08:20 Dose: 2 tablet Documented by: Sodium Chloride (0.9% Saline Lock 10 Ml Syringe) 10 - 40 ml IV UD PRN PRN Reason: SALINE FLUSH Last Admin: 02/27/21 21:01 Dose: 10 ml Documented by: STROKE Vital Signs/Narrative: Vital Signs Temp Pulse Resp BP BP Pulse Ox 02/28/21 13:28 72 20 H 88 02/28/21 12:00 100.4 F H 73 19 H 117/67 117/67 89 Medical Necessity - Tobacco Use Smoking Status: Never smoker Assessment/Plan All Active Problems Acute respiratory failure with hypoxia (Acute) Acute bilateral COVID-19 pneumonia (Acute) Acute hypoxic on chronic hypercapnic respiratory failure secondary to COVID-19 pneumonia/ARDS/MSSA and \Strep pneumoniae/agalactiae pneumonia -Patient has completed 5 days of remdesivir -Continue Decadron day 06/27 -Patient converted to APRV/Bilevel to maintain saturations-->FiO2 remains at 100 -PO2 is 88-89% -Wean FiO2 and then PEEP once FiO2 is less than 60% -Prone ventilating has not been utilized secondary to patient body habitus -Zosyn has been narrowed to cefazolin -Continue Lovenox 40 mg twice daily -AM ABG still shows considerable hypoxemia with a PO2 of 56 on 100% FiO2 -Diuresis is on hold -Continue pulmonary toilet -Appreciate critical care/infectious disease input -May need to revisit prognosis, CODE STATUS and overall plan of care with family if we are unable to start weaning oxygen in the next 24 to 48 hours -Prognosis is poor Persistent fevers -Given negative cultures antibiotics have been narrowed to cefazolin -Blood cultures both at 48 hours -Sputum culture remains with MSSA -Patient remains febrile with T-max of 101.6 -PCT is low at 0.11 -BNP is 86.3 -Troponin is less than 0.015 -? Related to DVT -ID is following Right upper extremity DVT -Caused by right upper extremity PICC -Therapeutic Lovenox -Currently too unstable to rule out PE with CTA as a cause of hypoxemia -Treated aggressively with anticoagulation Constipation -Continue aggressive bowel regimen -Bowel sounds remain good -Patient is requiring high-dose fentanyl which increases her risk -Continue tube feed -No clinical signs of ileus New DM-2 -Hemoglobin A1c was 6.4 patient had no previous documentation of being diabetic -Exacerbated by Decadron -Blood sugar goal is 140-180 -Patient remains with good glycemic control at this time Super morbid obesity -BMI is 50 -Complicates overall care, management, recovery and overall prognosis DVT/GI prophylaxis -Lovenox 40 mg twice daily -Continue Protonix daily CODE STATUS -Full code Inpatient E&M: 48721 Subs Hosp L2
[2021-02-28] MEDS: 0.9% Saline Lock 10 ML Syringe IV (20:33)
[2021-02-28] MEDS: Furosemide 40 MG/4 ML Vial IV (22:27)
[2021-03-01] VITALS (37 sets, daily range): BP systolic 95–156; BP diastolic 54–85; PULSE 66–98; RESP 16–37; TEMP 37.7–38.4; O2SAT 73–90
[2021-03-01] MEDS: Propofol 10MG/Ml 1,000 MG/100 ML Bottle 20.3 MG CONT INF ×5 (00:16→20:31)
[2021-03-01 04:16] LABS: Absolute Lymphocyte Count 1.47 X10^3/uL (0.83-4.51); Absolute Neutrophil Count 10.2 X10^3/uL (2.0-7.7); Basophil# 0.04 X10^3/uL; Basophil% 0.3 % (0-1); Eosinophil# 0.14 X10^3/uL; Eosinophils% 1.1 % (0-5); Hematocrit 39.4 % (37-47); Hemoglobin 12.3 g/dL (12.0-15.0); Lymphocyte # 1.47 X10^3/ul (0.83-4.51); Lymphocyte % 11.3 % (19-41); Mean Corp Hgb Conc 31.2 g/dL (32-36); Mean Corpuscular Hgb 28.9 pg (27.0-32.0); Mean Corpuscular Volume 92.7 fL (81-99); Mean Platelet Vol. 10.7 fl (6.2-12.0); Monocyte% 5.4 % (0-10); NRBC Flagged by Analyzer 0 % (0-5); Neutrophil # 10.21 X10^3/uL (2.7-7.7); Neutrophil % 78.4 % (47-70); Platelet Count 257 K/mm3 (150-450); RBC Distribution Width CV 13.6 % (11.6-14.6); RBC Distribution Width SD 46.5 fl (35.1-43.9); Red Blood Count 4.25 M/mm3 (4.2-5.4)
[2021-03-01 04:30] LABS: Anion Gap 5 (5-15); BUN 30 mg/dL (7-18); BUN/Creat Ratio 48.2 RATIO (10-20); Calcium,Total 8.4 mg/dL (8.5-10.1); Chloride 104 mmol/L (98-107); Creatinine, Serum 0.62 mg/dL (0.55-1.02); EST Glomerular Filtration Rate 103 mL/min (>60); Est Glom Filt Rate - Afr Amer 125 mL/min (>60); Glucose 132 mg/dL (74-106); Potassium 3.8 mmol/L (3.5-5.1); Sodium Level 146 mmol/L (136-145)
[2021-03-01 05:31] LABS: Allen Test Positive; Base Excess 11 mmol/L (-2 to +2); Bicarbonate 35.2 mmol/L (22-26); Blood Gas Specimen Type ART; FI02 100; Mode BiLevel; O2 Delivery Device Adult Vent; PO2 46 mmHG (75-100); PS 5; RR 12; SITE L Radial; SO2 83 % (95-99); Total Carbon Dioxide 37 mmol/L; pCO2 51.1 mmHg (35-45); pH 7.45 (7.35-7.45)
[2021-03-01] MEDS: TITRATION PARAMETER CHANGE 1 EACH IV (05:36)
[2021-03-01] MEDS: Cefazolin 2 GM in 0.9% Normal Saline 100 ML IV ×3 (05:48→22:15)
[2021-03-01] MEDS: Acetaminophen 650 MG/20 ML UDC GT (06:22)
[2021-03-01] MEDS: Vital High Protein 1,000 ML 65 ML GT ×2 (06:24→22:09)
[2021-03-01] MEDS: Furosemide 40 MG/4 ML Vial IV (06:31)
--- NOTE | 2021-03-01 07:15 | PCM.PN.INT ---
Subjective: Patient with marginal saturations throughout the evening. Peak pressure was increased to 30 with marginal improvement. Patient has received a dose of Lasix overnight. Patient continues to have fevers and has been treated with Tylenol and ice packs. Patient continues to open her eyes to voice and follows some commands. General: - - RASS -2. Morbidly obese. Good vent synchrony. HEENT: Atraumatic, PERRLA, EOMI, Normocephalic, - - No scleral icterus or injection noted Oral: Moist Mucosa, No Gingival or Mucosal Lesions/ Ulcerations Neck: Supple, No Nodes, Trachea Midline Lungs: No rhonchi, No wheeze, No rales, Diminished Cardiovascular: Regular rate, Regular Rhythm, Normal S1, Normal S2, No murmurs, No rub noted, No Gallop Abdomen: Bowel Sounds Present, Soft, Non Tender, Non-Distended, Obese Extremities: No clubbing, No cyanosis, Edema Skin: - - No change compared to previous Musculoskeletal: No Tenderness to Palpation of Joints or Extremities Lymphatic: No Cervical, Supraclavicular, or Inguinal Adenopathy Neurological: Cranial nerves II-XII grossly intact, Neuro grossly intact Psych/Mental Status: Flat Affect Vital Signs Temp Pulse Resp BP Pulse Ox 38.4 C H 78 37 H 124/69 H 82 03/01/21 06:00 03/01/21 06:31 03/01/21 06:31 03/01/21 06:00 03/01/21 06:31 Oxygen Delivery Method Mechanical Ventilator Weight: 135.5 kg Body Mass Index (BMI) 49.1 Intake and Output for Last 24 Hours 02/27/21 02/28/21 03/01/21 23:59 23:59 23:59 Intake Total 3501.46 / 3529.86 1944.43 / 1977.23 372.41 / 372.41 Output Total 2125 / 2325 1550 / 1875 1745 / 1745 Balance 1376.46 / 1204.86 394.43 / 102.23 -1372.59 / -1372.59 Labs (Last 48 Hours) 02/28/21 02/28/21 02/28/21 04:30 04:30 04:35 WBC 12.1 H RBC 4.21 Hgb 12.0 Hct 39.3 MCV 93.3 MCH 28.5 MCHC 30.5 L RDW Std Deviation 46.3 H RDW Coeff of Ramsey 13.6 Plt Count 276 MPV 10.9 Immature Gran % (Auto) 2.700 H Neut % (Auto) 83.0 H Lymph % (Auto) 8.0 L Gilchrist % (Auto) 5.1 Eos % (Auto) 1.0 Baso % (Auto) 0.2 Absolute Neuts (auto) 10.0 H Absolute Lymphs (auto) 0.96 Nucleated RBC % 0 Specimen Type Sample Site pH Bicarbonate Actual Total CO2 Base Excess O2 Saturation O2 % ABG pCO2 ABG pO2 Marcio Test Respiration Rate O2 Delivery Device Vent Mode POC Pressure Suppt Sodium 143 Potassium 4.2 Chloride 103 Carbon Dioxide 36.0 H Anion Gap 4 L BUN 31 H Creatinine 0.60 Estim Creat Clear Calc 82.87 Est GFR (MDRD) Af Amer 131 Est GFR (MDRD) Non-Af 108 BUN/Creatinine Ratio 51.9 H Glucose 152 H Calcium 8.2 L Total Creatine Kinase 12 L Triglycerides 208 H 02/28/21 03/01/21 03/01/21 05:00 04:10 04:10 WBC 13.0 H RBC 4.25 Hgb 12.3 Hct 39.4 MCV 92.7 MCH 28.9 MCHC 31.2 L RDW Std Deviation 46.5 H RDW Coeff of Ramsey 13.6 Plt Count 257 MPV 10.7 Immature Gran % (Auto) 3.500 H Neut % (Auto) 78.4 H Lymph % (Auto) 11.3 L Gilchrist % (Auto) 5.4 Eos % (Auto) 1.1 Baso % (Auto) 0.3 Absolute Neuts (auto) 10.2 H Absolute Lymphs (auto) 1.47 Nucleated RBC % 0 Specimen Type ART Sample Site L Radial pH 7.42 Bicarbonate Actual 34.3 H Total CO2 36 Base Excess 10 H O2 Saturation 89 L O2 % 100 ABG pCO2 52.7 H ABG pO2 56 L Marcio Test Positive Respiration Rate 12 O2 Delivery Device Adult Vent Vent Mode BiLevel POC Pressure Suppt 5 Sodium 146 H Potassium 3.8 Chloride 104 Carbon Dioxide 37.0 H Anion Gap 5 BUN 30 H Creatinine 0.62 Estim Creat Clear Calc 80.20 Est GFR (MDRD) Af Amer 125 Est GFR (MDRD) Non-Af 103 BUN/Creatinine Ratio 48.2 H Glucose 132 H Calcium 8.4 L Total Creatine Kinase Triglycerides 03/01/21 05:24 WBC RBC Hgb Hct MCV MCH MCHC RDW Std Deviation RDW Coeff of Ramsey Plt Count MPV Immature Gran % (Auto) Neut % (Auto) Lymph % (Auto) Gilchrist % (Auto) Eos % (Auto) Baso % (Auto) Absolute Neuts (auto) Absolute Lymphs (auto) Nucleated RBC % Specimen Type ART Sample Site L Radial pH 7.45 Bicarbonate Actual 35.2 H Total CO2 37 Base Excess 11 H O2 Saturation 83 L O2 % 100 ABG pCO2 51.1 H ABG pO2 46 L Marcio Test Positive Respiration Rate 12 O2 Delivery Device Adult Vent Vent Mode BiLevel POC Pressure Suppt 5 Sodium Potassium Chloride Carbon Dioxide Anion Gap BUN Creatinine Estim Creat Clear Calc Est GFR (MDRD) Af Amer Est GFR (MDRD) Non-Af BUN/Creatinine Ratio Glucose Calcium Total Creatine Kinase Triglycerides Microbiology 02/25/21 14:48 Blood Culture (Wb) - Right Hand Blood Culture - Preliminary No growth in 48 hours. 02/25/21 14:30 Blood Culture (Wb) - Pic Blood Culture - Preliminary No growth in 48 hours. 02/25/21 14:26 Sputum, Induced/Lukens Gram Stain - Final 02/25/21 14:26 Sputum, Induced/Lukens Respiratory Culture - Final Staphylococcus aureus Medical Necessity - Tobacco Use Smoking Status: Never smoker Assessment/Plan All Active Problems Acute respiratory failure with hypoxia (Acute) Acute bilateral COVID-19 pneumonia (Acute) RECOMMENDATIONS: 1. Continue patient on APRV mode of mechanical ventilation and wean FiO2 and PEEP to maintain saturations at or above 90%. 2. Completed remdesivir and continue Decadron to complete 10 days 3. Therapeutic Lovenox 4. Continue tube feeds as tolerated. Continue aggressive bowel regimen 5. Reevaluate Lasix on a daily basis. 6. Continue appropriate ICU prophylaxis. 7. Oxygenation to marginal to transport for additional work-up such as CT IMPRESSIONS: 1. Acute hypoxemic respiratory failure secondary to ARDS secondary to COVID-19 pneumonia/MSSA pneumonia The patient presented to the hospital with 1 week of respiratory symptoms and was found to be positive for coronavirus. The patient was started on remdesivir and Decadron. Although the patient was initiated on noninvasive positive pressure ventilatory support, her oxygen saturations were marginal, despite being on maximum noninvasive support with an FiO2 of 100%. Therefore, the patient was intubated on the morning of February 21. She has significant bilateral pulmonary infiltrates. The patient will be continued on assist control mode of mechanical ventilation with a goal to wean FiO2 and PEEP to maintain saturations at or above 90%. We will continue current supportive measures as noted above along with tube feeds as tolerated. Pronation was not used secondary to body habitus. Patient continues to be febrile despite addition of Lovenox. Infectious disease is following. Oxygenation status is too marginal to transport patient for evaluation such as a CT of the abdomen. We will continue to dose with Lasix, but overall prognosis is grim. Patient does still have good renal function and is not requiring any pressors. 2. New onset fever/DVT associated with PICC Unclear etiology at this time. Patient has had no bowel movement documented and is requiring high fentanyl dosing. Will attempt aggressive bowel regimen. If fever persist, evaluation for DVT given COVID-19 may be necessary. Infectious diseases following. Patient continues to have MSSA in the sputum despite 7 days of antibiotics. . 3. Increased residuals Improved. Clinical suspicion for increased residuals secondary to lack of bowel movement. Will be more aggressive with the bowel regimen. Continue with tube feeds for now. No aspiration events have been reported by staff. 4. Super morbid obesity at high risk for sleep disordered breathing Complicates care, management, recovery and prognosis. Continue supportive measures as noted above. TIME: 38 minutes of critical care time, independent of procedures, was spent addressing the patient's acute hypoxemic respiratory failure, COVID-19 pneumonia, super morbid obesity, review of all data and collaboration with the care team. (5:45 AM to 6:45 AM) [id number]: [id number] Critical care first hour
[2021-03-01] MEDS: Enoxaparin 150 MG/ML Syringe 135 MG SC ×2 (08:28→22:09)
[2021-03-01] MEDS: Chlorhexidine 15 ML PO ×2 (08:28→22:07)
[2021-03-01] MEDS: dexAMETHasone 10 MG/ML Vial 6 MG IV (08:30)
[2021-03-01] MEDS: Polyethylene Glycol 3350 17 GM PACKET GT ×2 (08:32→22:08)
[2021-03-01] MEDS: Senna/Docusate Sodium 1 Tablet 2 TABLET GT ×2 (08:33→22:08)
--- NOTE | 2021-03-01 09:57 | CASEMGMT ---
JOSE J VALENTINO NOTE: JOSE J VALENTINO participated in ICU rounds. Patient remains intubated, on vent with FiO2 @ 100%. CM/SW will continue to follow. Miriam BSN JOSE J VALENTINO
--- NOTE | 2021-03-01 14:14 | PN_ITS ---
Patient Problems: Active and Suspected Problems Acute respiratory failure with hypoxia (Acute) Acute bilateral COVID-19 pneumonia (Acute) Subjective: Patient remains intubated and sedated. Having continued hypoxia despite maximal vent support. Has had continued fevers through the night with a T-max of 101.2. And thus far all microbiology has been negative except for the known staph aureus in her sputum which is being treated. With one small bowel movement yesterday. Vitals/I&O's: Vital Signs Temp Pulse Resp BP Pulse Ox 100.7 F H 77 31 H 111/54 L 89 03/01/21 11:00 03/01/21 11:40 03/01/21 13:58 03/01/21 11:00 03/01/21 11:40 Oxygen Delivery Method Mechanical Ventilator Weight: 135.5 kg Body Mass Index (BMI) 49.1 Intake and Output for Last 24 Hours 02/27/21 02/28/21 03/01/21 23:59 23:59 23:59 Intake Total 3501.46 / 3529.86 1944.43 / 1977.23 471.41 / 471.41 Output Total 2125 / 2325 1550 / 1875 2845 / 2845 Balance 1376.46 / 1204.86 394.43 / 102.23 -2373.59 / -2373.59 General: - - Intubated and sedated HEENT: Atraumatic, Normocephalic Oral: Moist Mucosa, - - ET tube in place Neck: Supple, Trachea Midline Lungs: No rhonchi, No wheeze, No rales, Diminished - Diffusely Cardiovascular: Regular rate, Regular Rhythm, Normal S1, Normal S2, No murmurs, No Ectopic Activity, No rub noted, No Gallop Abdomen: Soft, Non Tender, Non-Distended, Hypoactive Bowel Sounds Extremities: No clubbing, No cyanosis, Capillary Refill Less than 3 Seconds, Edema - Trace bilateral lower extremity edema, Peripheral Pulses Normal Skin: No rashes, - - Right upper extremity PICC clean and dry Microbiology Past 72 Hours 02/25/21 14:48 Blood Culture (Wb) - Right Hand Blood Culture - Preliminary No growth in 48 hours. 02/25/21 14:30 Blood Culture (Wb) - Pic Blood Culture - Preliminary No growth in 48 hours. 02/25/21 14:26 Sputum, Induced/Lukens Gram Stain - Final 02/25/21 14:26 Sputum, Induced/Lukens Respiratory Culture - Final Staphylococcus aureus Laboratory Results 03/01/21 04:10: WBC 13.0 H, RBC 4.25, Hgb 12.3, Hct 39.4, MCV 92.7, MCH 28.9, MCHC 31.2 L, RDW Std Deviation 46.5 H, RDW Coeff of Ramsey 13.6, Plt Count 257, MPV 10.7, Immature Gran % (Auto) 3.500 H, Neut % (Auto) 78.4 H, Lymph % (Auto) 11.3 L, [place] % (Auto) 5.4, Eos % (Auto) 1.1, Baso % (Auto) 0.3, Absolute Neuts (auto) 10.2 H, Absolute Lymphs (auto) 1.47, Nucleated RBC % 0 03/01/21 04:10: Sodium 146 H, Potassium 3.8, Chloride 104, Carbon Dioxide 37.0 H , Anion Gap 5, BUN 30 H, Creatinine 0.62, Estim Creat Clear Calc 80.20, Est GFR (MDRD) Af Amer 125, Est GFR (MDRD) Non-Af 103, BUN/Creatinine Ratio 48.2 H, Glucose 132 H, Calcium 8.4 L 03/01/21 05:24: Specimen Type ART, Sample Site L Radial, pH 7.45, Bicarbonate Actual 35.2 H, Total CO2 37, Base Excess 11 H, O2 Saturation 83 L, O2 % 100, ABG pCO2 51.1 H, ABG pO2 46 L, Marcio Test Positive, Respiration Rate 12, O2 Delivery Device Adult Vent, Vent Mode BiLevel, POC Pressure Suppt 5 Current Medications Acetaminophen (Acetaminophen 650 Mg/20 Ml Udc) 650 mg GT Q6H PRN PRN PRN Reason: Pain Score 1-10/Temp > 100.7 F Last Admin: 03/01/21 06:22 Dose: 650 mg Documented by: Albuterol Sulfate (Albuterol Ih 8.5 Gm (Proair) Inhaler (200 Puffs)) 2 puff INHALATION Q4H PRN PRN PRN Reason: Shortness of breath, wheezing Chlorhexidine Gluconate (Chlorhexidine 15 Ml) 15 ml PO BID [facility]EL Last Admin: 03/01/21 08:28 Dose: 15 ml Documented by: Dexamethasone Sodium Phosphate (Dexamethasone 10 Mg/Ml Vial) 6 mg IV QAM [facility] Stop: 03/11/21 10:01 Enoxaparin Sodium (Enoxaparin 150 Mg/Ml Syringe) 135 mg SC BID [facility] Last Admin: 03/01/21 08:28 Dose: 135 mg Documented by: Sodium Chloride () 250 mls @ 15 mls/hr IV .[id number] PRN PRN Reason: Saline Flush Last Infusion: 02/28/21 19:39 Dose: 15 mls/hr Documented by: Propofol (Diprivan) 1,000 mg in 100 mls @ 8.13 mls/hr CONT INF .Q12H [facility]; Protocol Last Admin: 03/01/21 10:38 Dose: 25 mcg/kg/min, 20.3 mls/hr Documented by: Fentanyl Citrate 1,000 mcg/ (Sodium Chloride) 100 mls @ 5 mls/hr CONT INF .Q20H [facility]; Protocol Last Admin: 03/01/21 10:48 Dose: 125 mcg/hr, 12.5 mls/hr Documented by: Pantoprazole Sodium 40 mg/ (Sodium Chloride) 110 mls @ 330 mls/hr IV Q24 [facility] Last Admin: 03/01/21 08:28 Dose: 330 mls/hr Documented by: Enteral Nutritional Formula (Vital High Protein) 1,000 mls @ 65 mls/hr GT .[id number] [facility] Last Admin: 03/01/21 06:24 Dose: 65 mls/hr Documented by: Cefazolin Sodium 2 gm/ Sodium (Chloride) 110 mls @ 150 mls/hr IV Q8 [facility] Last Admin: 03/01/21 13:41 Dose: 150 mls/hr Documented by: Ondansetron HCl (Ondansetron 4 Mg/2 Ml Vial) 4 mg IV Q8H PRN PRN PRN Reason: NAUSEA/VOMITING Polyethylene Glycol (Polyethylene Glycol 3350 17 Gm Packet) 17 gm GT BID [facility] Last Admin: 03/01/21 08:32 Dose: 17 gm Documented by: Senna/Docusate Sodium (Senna/Docusate Sodium 1 Tablet) 2 tablet GT BID [facility] Last Admin: 03/01/21 08:33 Dose: 2 tablet Documented by: Sodium Chloride (0.9% Saline Lock 10 Ml Syringe) 10 - 40 ml IV UD PRN PRN Reason: SALINE FLUSH Last Admin: 02/28/21 20:33 Dose: 10 ml Documented by: STROKE Vital Signs/Narrative: Vital Signs Temp Pulse Resp BP Pulse Ox 03/01/21 13:58 31 H 03/01/21 11:40 77 24 H 89 03/01/21 11:38 77 03/01/21 11:30 77 33 H 89 03/01/21 11:00 100.7 F H 86 25 H 111/54 L 86 Medical Necessity - Tobacco Use Smoking Status: Never smoker Assessment/Plan All Active Problems Acute respiratory failure with hypoxia (Acute) Acute bilateral COVID-19 pneumonia (Acute) Acute hypoxic on chronic hypercapnic respiratory failure secondary to COVID-19 pneumonia/ARDS/MSSA and \Strep pneumoniae/agalactiae pneumonia -Patient has completed 5 days of remdesivir -Continue Decadron day 07/28 -Patient converted to APRV/Bilevel to maintain saturations-->FiO2 remains at 100 -PO2 is 82% -Wean FiO2 and then PEEP once FiO2 is less than 60% -Prone ventilating has not been utilized secondary to patient body habitus -Zosyn has been narrowed to cefazolin -AM ABG still shows considerable hypoxemia with a PO2 of 46 on 100% FiO2 -Diuresis is on hold -Continue pulmonary toilet -Appreciate critical care/infectious disease input -Family was updated again today and given the fact that her other organ systems remained stable they would like to continue with current code status and plan of care -Prognosis is poor her persistent hypoxemia despite maximal support Persistent fevers -Continue cefazolin -Blood cultures both at 48 hours -Sputum culture remains with MSSA -Patient remains febrile with T-max of 101.6 -PCT is low at 0.11 -BNP is 86.3 -Troponin is less than 0.015 -? Related to DVT -ID is following Right upper extremity DVT -Caused by right upper extremity PICC -Therapeutic Lovenox -Currently too unstable to rule out PE with CTA as a cause of hypoxemia -Treated aggressively with anticoagulation Hypernatremia -Sodium is 146 -Increase free water and tube feeds from 60 cc every 4 hours to 120 cc every 4 hours -Serum creatinine remained stable at this time -When a slightly elevated but patient remains on Decadron Constipation -Continue aggressive bowel regimen -Bowel sounds are slightly hypoactive today -Patient is requiring high-dose fentanyl which increases her risk -Continue tube feed New DM-2 -Hemoglobin A1c was 6.4 patient had no previous documentation of being diabetic -Exacerbated by Decadron -Blood sugar goal is 140-180 -Patient remains with good glycemic control at this time Super morbid obesity -BMI is 50 -Complicates overall care, management, recovery and overall prognosis DVT/GI prophylaxis -Lovenox 40 mg twice daily -Continue Protonix daily CODE STATUS -Full code Inpatient E&M: 95552 Subs Hosp L2
--- NOTE | 2021-03-01 15:16 | PCM.PN.ID ---
Patient Problems: Active and Suspected Problems Acute respiratory failure with hypoxia (Acute) Acute bilateral COVID-19 pneumonia (Acute) Subjective: On vent, able to wake some, family at bedside. - Physical Exam Vitals/I&O's: Vital Signs Temp Pulse Resp BP Pulse Ox 100.7 F H 77 31 H 111/54 L 89 03/01/21 11:00 03/01/21 11:40 03/01/21 13:58 03/01/21 11:00 03/01/21 11:40 Oxygen Delivery Method Mechanical Ventilator Weight: 135.5 kg Body Mass Index (BMI) 49.1 Intake and Output for Last 24 Hours 02/27/21 02/28/21 03/01/21 23:59 23:59 23:59 Intake Total 3501.46 / 3529.86 1944.43 / 1977.23 471.41 / 471.41 Output Total 2125 / 2325 1550 / 1875 2845 / 2845 Balance 1376.46 / 1204.86 394.43 / 102.23 -2373.59 / -2373.59 General: No apparent distress Lungs: Clear to auscultation, Diminished Cardiovascular: Regular rate, Regular Rhythm Abdomen: Soft, Non Tender, Non-Distended Skin: No rashes Microbiology Past 72 Hours 02/25/21 14:48 Blood Culture (Wb) - Right Hand Blood Culture - Preliminary No growth in 48 hours. 02/25/21 14:30 Blood Culture (Wb) - Pic Blood Culture - Preliminary No growth in 48 hours. 02/25/21 14:26 Sputum, Induced/Lukens Gram Stain - Final 02/25/21 14:26 Sputum, Induced/Lukens Respiratory Culture - Final Staphylococcus aureus Laboratory Results 03/01/21 04:10: WBC 13.0 H, RBC 4.25, Hgb 12.3, Hct 39.4, MCV 92.7, MCH 28.9, MCHC 31.2 L, RDW Std Deviation 46.5 H, RDW Coeff of Ramsey 13.6, Plt Count 257, MPV 10.7, Immature Gran % (Auto) 3.500 H, Neut % (Auto) 78.4 H, Lymph % (Auto) 11.3 L, [place] % (Auto) 5.4, Eos % (Auto) 1.1, Baso % (Auto) 0.3, Absolute Neuts (auto) 10.2 H, Absolute Lymphs (auto) 1.47, Nucleated RBC % 0 03/01/21 04:10: Sodium 146 H, Potassium 3.8, Chloride 104, Carbon Dioxide 37.0 H, Anion Gap 5, BUN 30 H, Creatinine 0.62, Estim Creat Clear Calc 80.20, Est GFR (MDRD) Af Amer 125, Est GFR (MDRD) Non-Af 103, BUN/Creatinine Ratio 48.2 H, Glucose 132 H, Calcium 8.4 L 03/01/21 05:24: Specimen Type ART, Sample Site L Radial, pH 7.45, Bicarbonate Actual 35.2 H, Total CO2 37, Base Excess 11 H, O2 Saturation 83 L, O2 % 100, ABG pCO2 51.1 H, ABG pO2 46 L, Marcio Test Positive, Respiration Rate 12, O2 Delivery Device Adult Vent, Vent Mode BiLevel, POC Pressure Suppt 5 Current Medications Acetaminophen (Acetaminophen 650 Mg/20 Ml Udc) 650 mg GT Q6H PRN PRN PRN Reason: Pain Score 1-10/Temp > 100.7 F Last Admin: 03/01/21 06:22 Dose: 650 mg Documented by: Albuterol Sulfate (Albuterol Ih 8.5 Gm (Proair) Inhaler (200 Puffs)) 2 puff INHALATION Q4H PRN PRN PRN Reason: Shortness of breath, wheezing Chlorhexidine Gluconate (Chlorhexidine 15 Ml) 15 ml PO BID [facility] Last Admin: 03/01/21 08:28 Dose: 15 ml Documented by: Dexamethasone Sodium Phosphate (Dexamethasone 10 Mg/Ml Vial) 6 mg IV QAM [facility] Stop: 03/11/21 10:01 Enoxaparin Sodium (Enoxaparin 150 Mg/Ml Syringe) 135 mg SC BID [facility] Last Admin: 03/01/21 08:28 Dose: 135 mg Documented by: Sodium Chloride () 250 mls @ 15 mls/hr IV .[id number] PRN PRN Reason: Saline Flush Last Infusion: 02/28/21 19:39 Dose: 15 mls/hr Documented by: Propofol (Diprivan) 1,000 mg in 100 mls @ 8.13 mls/hr CONT INF .Q12H [facility]; Protocol Last Admin: 03/01/21 10:38 Dose: 25 mcg/kg/min, 20.3 mls/hr Documented by: Fentanyl Citrate 1,000 mcg/ (Sodium Chloride) 100 mls @ 5 mls/hr CONT INF .Q20H [facility]; Protocol Last Admin: 03/01/21 10:48 Dose: 125 mcg/hr, 12.5 mls/hr Documented by: Pantoprazole Sodium 40 mg/ (Sodium Chloride) 110 mls @ 330 mls/hr IV Q24 [facility] Last Admin: 03/01/21 08:28 Dose: 330 mls/hr Documented by: Enteral Nutritional Formula (Vital High Protein) 1,000 mls @ 65 mls/hr GT .[id number] [facility] Last Admin: 03/01/21 06:24 Dose: 65 mls/hr Documented by: Cefazolin Sodium 2 gm/ Sodium (Chloride) 110 mls @ 150 mls/hr IV Q8 [facility] Last Admin: 03/01/21 13:41 Dose: 150 mls/hr Documented by: Ondansetron HCl (Ondansetron 4 Mg/2 Ml Vial) 4 mg IV Q8H PRN PRN PRN Reason: NAUSEA/VOMITING Polyethylene Glycol (Polyethylene Glycol 3350 17 Gm Packet) 17 gm GT BID [facility] Last Admin: 03/01/21 08:32 Dose: 17 gm Documented by: Senna/Docusate Sodium (Senna/Docusate Sodium 1 Tablet) 2 tablet GT BID [facility] Last Admin: 03/01/21 08:33 Dose: 2 tablet Documented by: Sodium Chloride (0.9% Saline Lock 10 Ml Syringe) 10 - 40 ml IV UD PRN PRN Reason: SALINE FLUSH Last Admin: 02/28/21 20:33 Dose: 10 ml Documented by: Medical Necessity - Tobacco Use Smoking Status: Never smoker Route of nutrition/ use of supplements: [] Nutritional Intake: [] IV Site: [] Ochoa Catheter: [] - Assessment/Plan Antibiotics: [] Assessment/Plan: [] Active and Suspected Problems Acute respiratory failure with hypoxia (Acute) Acute bilateral COVID-19 pneumonia (Acute) covid with hypoxia, resp failure - on dex, completed remdesivir. CT neg for PE. Sputum with mssa, GBS, strep pneumo. Critically ill. Repeat sputum identified as mssa again. Remains on 100% fiO2 today. DVT seen, now on therapeutic anticoagulation. Cont cefazolin. Will extend course of dex another 10 days. Will follow
[2021-03-02] VITALS (36 sets, daily range): BP systolic 113–165; BP diastolic 64–96; PULSE 76–140; RESP 20–48; TEMP 37.9–38.6; O2SAT 44–94
[2021-03-02] MEDS: Propofol 10MG/Ml 1,000 MG/100 ML Bottle 20.3 MG CONT INF (00:52)
[2021-03-02] MEDS: Acetaminophen 650 MG/20 ML UDC GT ×2 (02:03→12:46)
[2021-03-02 04:53] LABS: Absolute Lymphocyte Count 1.44 X10^3/uL (0.83-4.51); Absolute Neutrophil Count 10.1 X10^3/uL (2.0-7.7); Basophil# 0.07 X10^3/uL; Basophil% 0.5 % (0-1); Eosinophil# 0.15 X10^3/uL; Eosinophils% 1.1 % (0-5); Hemoglobin 12.1 g/dL (12.0-15.0); Lymphocyte # 1.44 X10^3/ul (0.83-4.51); Lymphocyte % 10.9 % (19-41); Mean Corp Hgb Conc 30.3 g/dL (32-36); Mean Corpuscular Hgb 28.2 pg (27.0-32.0); Mean Corpuscular Volume 93.2 fL (81-99); Mean Platelet Vol. 10.6 fl (6.2-12.0); Monocyte# 0.81 X10^3/uL; Monocyte% 6.2 % (0-10); NRBC Flagged by Analyzer 0 % (0-5); Neutrophil # 10.05 X10^3/uL (2.7-7.7); Neutrophil % 76.4 % (47-70); Platelet Count 236 K/mm3 (150-450); RBC Distribution Width CV 13.7 % (11.6-14.6); RBC Distribution Width SD 46.9 fl (35.1-43.9); Red Blood Count 4.29 M/mm3 (4.2-5.4); White Blood Count 13.2 K/mm3 (4.4-11.0)
[2021-03-02 05:08] LABS: Anion Gap 3 (5-15); BUN 32 mg/dL (7-18); BUN/Creat Ratio 59.3 RATIO (10-20); Calcium,Total 8.4 mg/dL (8.5-10.1); Chloride 103 mmol/L (98-107); Creatinine, Serum 0.54 mg/dL (0.55-1.02); EST Glomerular Filtration Rate 121 mL/min (>60); Est Glom Filt Rate - Afr Amer 147 mL/min (>60); Estimated Creatinine Clearance 92.08 ml/min; Glucose 128 mg/dL (74-106); Potassium 3.6 mmol/L (3.5-5.1); Sodium Level 143 mmol/L (136-145)
[2021-03-02] MEDS: Cefazolin 2 GM in 0.9% Normal Saline 100 ML IV ×3 (05:13→22:45)
[2021-03-02] MEDS: Propofol 10MG/Ml 1,000 MG/100 ML Bottle 24.4 MG CONT INF (05:15)
[2021-03-02 06:16] LABS: Base Excess 11 mmol/L (-2 to +2); Bicarbonate 35.2 mmol/L (22-26); Blood Gas Specimen Type ART; FI02 100; Mode BiLevel; O2 Delivery Device Adult Vent; PO2 39 mmHG (75-100); RR 12; SITE R Radial; SO2 74 % (95-99); Total Carbon Dioxide 37 mmol/L; pH 7.42 (7.35-7.45)
--- NOTE | 2021-03-02 06:52 | PN_ITS ---
Subjective: Patient continues to remain hemodynamically stable, but saturations have consistently decreased through the evening. Patient has been maintaining in the mid to low 70s for saturations. Patient continues to have small liquid bowel movements. Patient is able to interact and opens her eyes appropriately. General: Alert, Cooperative, No apparent distress, - - Good vent synchrony HEENT: Atraumatic, PERRLA, EOMI, Normocephalic, - - Scleral injection without icterus Oral: Moist Mucosa, No Gingival or Mucosal Lesions/ Ulcerations, - - Crowded posterior pharynx Neck: Supple, No JVD, No Nodes, Trachea Midline Lungs: No wheeze, No rales, Diminished, Rhonchi, - - Some mild thin secretions noted Cardiovascular: Regular rate, Regular Rhythm, Normal S1, Normal S2, No murmurs, No rub noted, No Gallop Abdomen: Bowel Sounds Present, Soft, Non Tender, Distended - Slightly Extremities: No clubbing, No cyanosis, Edema Skin: No rashes, No breakdown Musculoskeletal: No Tenderness to Palpation of Joints or Extremities Lymphatic: No Cervical, Supraclavicular, or Inguinal Adenopathy Neurological: Cranial nerves II-XII grossly intact, Neuro grossly intact, Motor Exam 5/5 strength throughout Psych/Mental Status: Flat Affect Vital Signs Temp Pulse Resp BP Pulse Ox 38.0 C H 106 H 29 H 143/78 H 68 03/02/21 06:00 03/02/21 06:00 03/02/21 06:00 03/02/21 06:00 03/02/21 06:00 Oxygen Delivery Method Mechanical Ventilator Weight: 136.6 kg Body Mass Index (BMI) 49.1 Intake and Output for Last 24 Hours 02/28/21 03/01/21 03/02/21 23:59 23:59 23:59 Intake Total 1944.43 / 1977.23 1611.65 / 2012.45 1339.06 / 1339.06 Output Total 1550 / 1875 3170 / 3320 525 / 525 Balance 394.43 / 102.23 -1558.35 / -1307.55 814.06 / 814.06 Labs (Last 48 Hours) 02/28/21 03/01/21 03/01/21 04:35 04:10 04:10 WBC 13.0 H RBC 4.25 Hgb 12.3 Hct 39.4 MCV 92.7 MCH 28.9 MCHC 31.2 L RDW Std Deviation 46.5 H RDW Coeff of Ramsey 13.6 Plt Count 257 MPV 10.7 Immature Gran % (Auto) 3.500 H Neut % (Auto) 78.4 H Lymph % (Auto) 11.3 L [place] % (Auto) 5.4 Eos % (Auto) 1.1 Baso % (Auto) 0.3 Absolute Neuts (auto) 10.2 H Absolute Lymphs (auto) 1.47 Nucleated RBC % 0 Specimen Type Sample Site pH Bicarbonate Actual Total CO2 Base Excess O2 Saturation O2 % ABG pCO2 ABG pO2 Marcio Test Respiration Rate O2 Delivery Device Vent Mode POC Pressure Suppt Crit Call To/Read Back Blood Gas Notified Whom Sodium 146 H Potassium 3.8 Chloride 104 Carbon Dioxide 37.0 H Anion Gap 5 BUN 30 H Creatinine 0.62 Estim Creat Clear Calc 80.20 Est GFR (MDRD) Af Amer 125 Est GFR (MDRD) Non-Af 103 BUN/Creatinine Ratio 48.2 H Glucose 132 H Calcium 8.4 L Total Creatine Kinase 12 L Triglycerides 208 H 03/01/21 03/02/21 03/02/21 05:24 04:40 04:40 WBC 13.2 H RBC 4.29 Hgb 12.1 Hct 40.0 MCV 93.2 MCH 28.2 MCHC 30.3 L RDW Std Deviation 46.9 H RDW Coeff of Ramsey 13.7 Plt Count 236 MPV 10.6 Immature Gran % (Auto) 4.900 H Neut % (Auto) 76.4 H Lymph % (Auto) 10.9 L [place] % (Auto) 6.2 Eos % (Auto) 1.1 Baso % (Auto) 0.5 Absolute Neuts (auto) 10.1 H Absolute Lymphs (auto) 1.44 Nucleated RBC % 0 Specimen Type ART Sample Site L Radial pH 7.45 Bicarbonate Actual 35.2 H Total CO2 37 Base Excess 11 H O2 Saturation 83 L O2 % 100 ABG pCO2 51.1 H ABG pO2 46 L Marcio Test Positive Respiration Rate 12 O2 Delivery Device Adult Vent Vent Mode BiLevel POC Pressure Suppt 5 Crit Call To/Read Back Blood Gas Notified Whom Sodium 143 Potassium 3.6 Chloride 103 Carbon Dioxide 37.0 H Anion Gap 3 L BUN 32 H Creatinine 0.54 L Estim Creat Clear Calc 92.08 Est GFR (MDRD) Af Amer 147 Est GFR (MDRD) Non-Af 121 BUN/Creatinine Ratio 59.3 H Glucose 128 H Calcium 8.4 L Total Creatine Kinase Triglycerides 03/02/21 06:08 WBC RBC Hgb Hct MCV MCH MCHC RDW Std Deviation RDW Coeff of Ramsey Plt Count MPV Immature Gran % (Auto) Neut % (Auto) Lymph % (Auto) [place] % (Auto) Eos % (Auto) Baso % (Auto) Absolute Neuts (auto) Absolute Lymphs (auto) Nucleated RBC % Specimen Type ART Sample Site R Radial pH 7.42 Bicarbonate Actual 35.2 H Total CO2 37 Base Excess 11 H O2 Saturation 74 L O2 % 100 ABG pCO2 54.0 H ABG pO2 39 L* Marcio Test Respiration Rate 12 O2 Delivery Device Adult Vent Vent Mode BiLevel POC Pressure Suppt Crit Call To/Read Back Yes Blood Gas Notified Whom Dr Cm Sodium Potassium Chloride Carbon Dioxide Anion Gap BUN Creatinine Estim Creat Clear Calc Est GFR (MDRD) Af Amer Est GFR (MDRD) Non-Af BUN/Creatinine Ratio Glucose Calcium Total Creatine Kinase Triglycerides Medical Necessity - Tobacco Use Smoking Status: Never smoker Assessment/Plan All Active Problems Acute respiratory failure with hypoxia (Acute) Acute bilateral COVID-19 pneumonia (Acute) RECOMMENDATIONS: 1. Continue patient on APRV mode of mechanical ventilation and wean FiO2 and PEEP to maintain saturations at or above 90%. 2. Completed remdesivir and continue Decadron to complete 10 days 3. Therapeutic Lovenox 4. Continue tube feeds as tolerated. Continue aggressive bowel regimen 5. Reevaluate Lasix on a daily basis. 6. Continue appropriate ICU prophylaxis. 7. Oxygenation to marginal to transport for additional work-up such as CT IMPRESSIONS: 1. Acute hypoxemic respiratory failure secondary to ARDS secondary to COVID- 19 pneumonia/MSSA pneumonia Patient has completed remdesivir and Decadron therapy. Continues to have marginal saturations despite APRV. We will schedule diuretics as patient has been able to tolerate very previous dosing. However, paralytics are contraindicated in APRV secondary to ventilation. ABG this morning shows compensated CO2 retention, so patient will likely not tolerate this. Since of conversations with the family. Patient is too unstable to transfer for ECMO or CAT scan to evaluate for a secondary process. Patient is on antibiotics at this time. DVT was noted 2 days ago and patient has been on Lovenox. Could attempt transition to assist control with paralytics, but need to discuss with the family first as this could result in significant desaturation and cardiac instability. Pulse ox waveform appears appropriate and ABGs have correlated with saturations. Will order a limited echo for evaluation of intracardiac shunt. Patient may have intrapulmonary shunt secondary to severe ARDS. 2. New onset fever/DVT associated with PICC Unclear etiology at this time. Patient has had no bowel movement documented and is requiring high fentanyl dosing. Will attempt aggressive bowel regimen. If fever persist, evaluation for DVT given COVID-19 may be necessary. Infectious diseases following. Patient has been on antibiotics throughout hospitalization 3. Increased residuals Improved. Clinical suspicion for increased residuals secondary to lack of bowel movement. Will be more aggressive with the bowel regimen. Continue with tube feeds for now. No aspiration events have been reported by staff. 4. Super morbid obesity at high risk for sleep disordered breathing Complicates care, management, recovery and prognosis. Continue supportive measures as noted above. Addendum 11:49 AM: Extensive family meeting with the children and about patient's grim prognosis. Also discussed with the quality lab technician and observed echocardiogram independently. Patient did not have an intracardiac shunt, but does have findings consistent with increased RV pressures. Discussed the possibility of using a paralytic, but understanding that this would require transition to assist control which could lead to decompensation. After extensive conversation about CODE STATUS, patient will be made a DNR Comfort Care arrest with intubation. Family would like to wait 24 hours to evaluate. If patient receives paralysis, family will be present. Total discussion time of 70 minutes TIME: 110 minutes of critical care time, independent of procedures, was spent addressing the patient's acute hypoxemic respiratory failure, COVID-19 pneumonia, super morbid obesity, review of all data and collaboration with the care team. (5:40 AM to 6:40 AM, 10:45 AM to 11:55 AM) Procedures: [id number] Critial Care Addl 30 Min - Total of 110 minutes of critical care time. [id number] x 2 [phone] [id number] Critical care first hour
--- NOTE | 2021-03-02 07:02 | RAD_ITS ---
STUDY: X-RAY CHEST REASON FOR EXAM: Female, 65 years old. breathing change, covid TECHNIQUE: Single AP portable view of the chest. COMPARISON: 02/26/2021 FINDINGS: Endotracheal tube, nasogastric tube, right upper extremity PICC all of which are unchanged. No change in alveolar opacities throughout both lungs consistent with bilateral pneumonia, pulmonary edema, or ARDS. There is no demonstrated pleural abnormality. Normal size heart. Normal mediastinum and mayela. Normal visualized pulmonary arteries. Normal visualized aortic arch and descending thoracic aorta. Normal visualized thoracic spine. Normal visualized ribs, clavicles, and shoulders. There is no demonstrated abnormality of the visualized soft tissue structures of the upper abdomen. RAD/Chest 1 View (Portable) IMPRESSION: No change from 02/26/2021 Electronically Signed: Fransisco Yuen MD at 8:04 EDT Tel , Service support ,
--- NOTE | 2021-03-02 07:12 | ECHOL_ITS ---
Reason For Study: Assess for cardiac shunt Procedure This was a limited 2D transthoracic echocardiogram. Exam performed portable in ICU/CCU. The exam was abbreviated due to the COVID 19 protocol. Left Ventricle Moderate concentric left ventricular hypertrophy. Left ventricular systolic function is hyperdynamic. Right Ventricle Moderately dilated right ventricle. Atria Normal left atrium. Normal right atrium. Intact atrial septum. Mitral Valve The mitral valve is structurally normal. No prolapse or stenosis seen. Trivial mitral valve insufficiency. Tricuspid Valve The tricuspid valve is not well visualized. Mild tricuspid valve insufficiency. Pulmonary artery systolic pressure is SPAP i56 mmhg mmHg. Aortic Valve Normal aortic valve. Pulmonic Valve The pulmonic valve is not well visualized. Great Vessels Normal aortic root. Pericardium/Pleural No pericardial effusion. Medication Performed a rapid injection of agitated mix of 9 cc saline and 1cc air to assess for atrial septal defect. MMode/2D Measurements & Calculations LVIDd: 3.3 cm IVSd: 1.5 cm Ao root diam: 3.5 cm LVIDs: 1.8 cm LVPWd: 1.5 cm RVDd: 3.8 cm FS: 46.6 % LA dimension(2D): 3.0 cm Doppler Measurements & Calculations TR max taryn: 339.6 cm/sec TR max P.1 mmHg ECHO/Echo, Limited Study Interpretation Summary Moderate concentric left ventricular hypertrophy. Left ventricular systolic function is hyperdynamic. Moderately dilated right ventricle. Intact atrial septum Pulmonary artery systolic pressure iSPAP i56 mmhg mmHg NO PFO/or intracardiac shunt Buble study is Normal Ordering Physician: Alfred Cm Performed By: Fabiola Chni RDCS
--- NOTE | 2021-03-02 07:20 | NURSING ---
O2 sats in the 40's, family called in.
[2021-03-02] MEDS: Propofol 10MG/Ml 1,000 MG/100 ML Bottle 36.6 MG CONT INF (08:17)
[2021-03-02] MEDS: Chlorhexidine 15 ML PO ×2 (09:47→20:30)
[2021-03-02] MEDS: dexAMETHasone 10 MG/ML Vial 6 MG IV (09:47)
[2021-03-02] MEDS: 0.9% Saline Lock 10 ML Syringe IV ×2 (09:47→16:55)
[2021-03-02] MEDS: Furosemide 40 MG/4 ML Vial IV ×2 (09:47→17:05)
[2021-03-02] MEDS: Polyethylene Glycol 3350 17 GM PACKET GT ×2 (09:48→20:29)
[2021-03-02] MEDS: Enoxaparin 150 MG/ML Syringe 135 MG SC ×2 (09:48→20:30)
[2021-03-02] MEDS: Senna/Docusate Sodium 1 Tablet 2 TABLET GT ×2 (09:51→20:28)
[2021-03-02] MEDS: Propofol 10MG/Ml 1,000 MG/100 ML Bottle 32.5 MG CONT INF (11:29)
--- NOTE | 2021-03-02 12:22 | PCM.PN.HOSP ---
Patient Problems: Active and Suspected Problems Acute respiratory failure with hypoxia (Acute) Acute bilateral COVID-19 pneumonia (Acute) Subjective: Patient remains intubated and sedated oxygen saturations this morning were 62% on 100% bilevel ventilation. Dr. Cm had a discussion with the family today and the plan is to hold tight today and possibly consider paralysis with a change in vent mode tomorrow. Chest x-ray shows fulminant ARDS. Vitals/I&O's: Vital Signs Temp Pulse Resp BP Pulse Ox 101.2 F H 133 H 30 H 113/70 82 03/02/21 12:00 03/02/21 12:00 03/02/21 12:00 03/02/21 12:00 03/02/21 12:00 Oxygen Delivery Method Mechanical Ventilator Weight: 136.6 kg Body Mass Index (BMI) 49.1 Intake and Output for Last 24 Hours 02/28/21 03/01/21 03/02/21 23:59 23:59 23:59 Intake Total 1944.43 / 1976.23 1611.65 / 2012.45 2308.18 / 2308.18 Output Total 1550 / 1875 3170 / 3320 1125 / 1125 Balance 394.43 / 102.23 -1558.35 / -1307.55 1183.18 / 1183.18 General: - - Intubated and sedated on a ventilator, per nursing intermittently awakens, appears somewhat cyanotic HEENT: Atraumatic, Normocephalic Oral: - - ET tube in place Cardiovascular: Regular rate, Regular Rhythm Extremities: No clubbing, Edema Skin: No rashes, No breakdown Microbiology Past 72 Hours 02/25/21 14:48 Blood Culture (Wb) - Right Hand Blood Culture - Preliminary No growth in 48 hours. 02/25/21 14:30 Blood Culture (Wb) - Pic Blood Culture - Preliminary No growth in 48 hours. Laboratory Results 03/02/21 04:40: WBC 13.2 H, RBC 4.29, Hgb 12.1, Hct 40.0, MCV 93.2, MCH 28.2, MCHC 30.3 L, RDW Std Deviation 46.9 H, RDW Coeff of Ramsey 13.7, Plt Count 236, MPV 10.6, Immature Gran % (Auto) 4.900 H, Neut % (Auto) 76.4 H, Lymph % (Auto) 10.9 L, [place] % (Auto) 6.2, Eos % (Auto) 1.1, Baso % (Auto) 0.5, Absolute Neuts (auto) 10.1 H, Absolute Lymphs (auto) 1.44, Nucleated RBC % 0 03/02/21 04:40: Sodium 143, Potassium 3.6, Chloride 103, Carbon Dioxide 37.0 H, Anion Gap 3 L, BUN 32 H, Creatinine 0.54 L, Estim Creat Clear Calc 92.08, Est GFR (MDRD) Af Amer 147, Est GFR (MDRD) Non-Af 121, BUN/Creatinine Ratio 59.3 H, Glucose 128 H, Calcium 8.4 L 03/02/21 06:08: Specimen Type ART, Sample Site R Radial, pH 7.42, Bicarbonate Actual 35.2 H, Total CO2 37, Base Excess 11 H, O2 Saturation 74 L, O2 % 100, ABG pCO2 54.0 H, ABG pO2 39 L*, Respiration Rate 12, O2 Delivery Device Adult Vent, Vent Mode BiLevel, Crit Call To/Read Back Yes, Blood Gas Notified Whom Dr Cm Current Medications Acetaminophen (Acetaminophen 650 Mg/20 Ml Udc) 650 mg GT Q6H PRN PRN PRN Reason: Pain Score 1-10/Temp > 100.7 F Last Admin: 03/02/21 02:03 Dose: 650 mg Documented by: Albuterol Sulfate (Albuterol Ih 8.5 Gm (Proair) Inhaler (200 Puffs)) 2 puff INHALATION Q4H PRN PRN PRN Reason: Shortness of breath, wheezing Chlorhexidine Gluconate (Chlorhexidine 15 Ml) 15 ml PO BID COUNT INCLUDES THE [facility] Last Admin: 03/02/21 09:47 Dose: 15 ml Documented by: Dexamethasone Sodium Phosphate (Dexamethasone 10 Mg/Ml Vial) 6 mg IV QAM COUNT INCLUDES THE [facility] Stop: 03/11/21 10:01 Last Admin: 03/02/21 09:47 Dose: 6 mg Documented by: Enoxaparin Sodium (Enoxaparin 150 Mg/Ml Syringe) 135 mg SC BID COUNT INCLUDES THE [facility] Last Admin: 03/02/21 09:48 Dose: 135 mg Documented by: Furosemide (Furosemide 40 Mg/4 Ml Vial) 40 mg IV BID@1000,1800 COUNT INCLUDES THE [facility] Last Admin: 03/02/21 09:47 Dose: 40 mg Documented by: Sodium Chloride () 250 mls @ 15 mls/hr IV .[id number] PRN PRN Reason: Saline Flush Last Infusion: 03/01/21 22:17 Dose: 0 mls/hr Documented by: Propofol (Diprivan) 1,000 mg in 100 mls @ 8.13 mls/hr CONT INF .Q12H MIGUEL; Protocol Last Admin: 03/02/21 11:29 Dose: 40 mcg/kg/min, 32.5 mls/hr Documented by: Fentanyl Citrate 1,000 mcg/ (Sodium Chloride) 100 mls @ 5 mls/hr CONT INF .Q20H MIGUEL; Protocol Last Admin: 03/02/21 11:14 Dose: 125 mcg/hr, 12.5 mls/hr Documented by: Pantoprazole Sodium 40 mg/ (Sodium Chloride) 110 mls @ 330 mls/hr IV Q24 MIGUEL Last Infusion: 03/02/21 11:35 Dose: Infused Documented by: Enteral Nutritional Formula (Vital High Protein) 1,000 mls @ 65 mls/hr GT .[id number] MIUGEL Last Admin: 03/02/21 11:27 Dose: Not Given Documented by: Cefazolin Sodium 2 gm/ Sodium (Chloride) 110 mls @ 150 mls/hr IV Q8 COUNT INCLUDES THE [facility] Last Infusion: 03/02/21 06:00 Dose: Infused Documented by: Ondansetron HCl (Ondansetron 4 Mg/2 Ml Vial) 4 mg IV Q8H PRN PRN PRN Reason: NAUSEA/VOMITING Polyethylene Glycol (Polyethylene Glycol 3350 17 Gm Packet) 17 gm GT BID MIGUEL Last Admin: 03/02/21 09:48 Dose: 17 gm Documented by: Senna/Docusate Sodium (Senna/Docusate Sodium 1 Tablet) 2 tablet GT BID MIGUEL Last Admin: 03/02/21 09:51 Dose: 2 tablet Documented by: Sodium Chloride (0.9% Saline Lock 10 Ml Syringe) 10 - 40 ml IV UD PRN PRN Reason: SALINE FLUSH Last Admin: 03/02/21 09:47 Dose: 40 ml Documented by: STROKE Vital Signs/Narrative: Vital Signs Temp Pulse Resp BP BP Pulse Ox 03/02/21 12:00 101.2 F H 133 H 30 H 113/70 82 03/02/21 11:10 140 H 44 H 79 03/02/21 11:00 101.2 F H 138 H 27 H 146/76 H 79 03/02/21 10:00 101.2 F H 137 H 29 H 136/74 H 78 03/02/21 09:29 139 H 48 H 76 03/02/21 09:00 101.2 F H 140 H 30 H 132/70 H 74 Medical Necessity - Tobacco Use Smoking Status: Never smoker Assessment/Plan All Active Problems Acute respiratory failure with hypoxia (Acute) Acute bilateral COVID-19 pneumonia (Acute) Acute hypoxic on chronic hypercapnic respiratory failure secondary to COVID-19 pneumonia/ARDS/MSSA pneumonia -Patient has completed 5 days of remdesivir -Continue Decadron day 09/09->course has been extended by 10 days per infectious disease -Patient converted to APRV/Bilevel to maintain saturations-->FiO2 remains at 100--> oxygen saturations have been as low as 32% today but for the most part have been in the 70 range -Wean FiO2 and then PEEP once FiO2 is less than 60% -Continue cefazolin cefazolin -AM ABG still shows considerable hypoxemia with a PO2 of 39 on 100% FiO2 -Diuresis is on hold -Continue pulmonary toilet -Echo pending -Continue full anticoagulation -Appreciate critical care/infectious disease input -Family was updated again today and CODE STATUS changed to DNR CCA with intubation possible paralysis tomorrow with change in vent mode although patient's family is aware that these changes could result in severe hypoxemia and cardiac arrest -Prognosis is poor her persistent hypoxemia despite maximal support Persistent fevers -Continue cefazolin -Max is 101.2 and has been persistently in this range -Blood cultures negative -Sputum culture remains with MSSA -Patient remains febrile with T-max of 101.6 -PCT is low at 0.11 -BNP is 86.3 -Troponin is less than 0.015 -? Related to DVT -ID is following Right upper extremity DVT/left soleal DVT -Caused by right upper extremity PICC -Therapeutic Lovenox -Currently too unstable to rule out PE with CTA as a cause of hypoxemia--> Echo pending -Treated aggressively with anticoagulation Hypernatremia -Resolved with increase in free water Constipation -Continue aggressive bowel regimen -Patient is requiring high-dose fentanyl which increases her risk -Continue tube feed New DM-2 -Hemoglobin A1c was 6.4 patient had no previous documentation of being diabetic -Exacerbated by Decadron -Blood sugar goal is 140-180 -Patient remains with good glycemic control at this time Super morbid obesity -BMI is 50 -Complicates overall care, management, recovery and overall prognosis DVT/GI prophylaxis -Lovenox 40 mg twice daily -Continue Protonix daily CODE STATUS -DNR CCA okay for intubation Inpatient E&M: 45171 Subs Hosp L2
[2021-03-02] MEDS: Propofol 10MG/Ml 1,000 MG/100 ML Bottle 12.2 MG CONT INF ×2 (15:15→18:58)
[2021-03-03] VITALS (28 sets, daily range): BP systolic 122–208; BP diastolic 67–97; PULSE 73–118; RESP 22–46; TEMP 37.6–39.3; O2SAT 86–95
[2021-03-03] MEDS: Propofol 10MG/Ml 1,000 MG/100 ML Bottle 20.3 MG CONT INF ×2 (01:47→04:25)
[2021-03-03] MEDS: Vital High Protein 1,000 ML 65 ML GT (02:50)
[2021-03-03 04:08] LABS: Absolute Lymphocyte Count 1.46 X10^3/uL (0.83-4.51); Absolute Neutrophil Count 12.1 X10^3/uL (2.0-7.7); Basophil# 0.08 X10^3/uL; Basophil% 0.5 % (0-1); Eosinophil# 0.06 X10^3/uL; Eosinophils% 0.4 % (0-5); Hematocrit 40.1 % (37-47); Hemoglobin 11.6 g/dL (12.0-15.0); Lymphocyte # 1.46 X10^3/ul (0.83-4.51); Lymphocyte % 9.5 % (19-41); Mean Corp Hgb Conc 28.9 g/dL (32-36); Mean Corpuscular Volume 96.6 fL (81-99); Mean Platelet Vol. 11.1 fl (6.2-12.0); Monocyte# 0.96 X10^3/uL; Monocyte% 6.3 % (0-10); NRBC Flagged by Analyzer 0 % (0-5); Neutrophil # 12.12 X10^3/uL (2.7-7.7); Neutrophil % 78.9 % (47-70); Platelet Count 247 K/mm3 (150-450); RBC Distribution Width CV 13.8 % (11.6-14.6); RBC Distribution Width SD 49.1 fl (35.1-43.9); Red Blood Count 4.15 M/mm3 (4.2-5.4); White Blood Count 15.4 K/mm3 (4.4-11.0)
[2021-03-03 04:23] LABS: Anion Gap 2 (5-15); BUN 32 mg/dL (7-18); BUN/Creat Ratio 55.5 RATIO (10-20); Calcium,Total 8.6 mg/dL (8.5-10.1); Chloride 102 mmol/L (98-107); Creatinine, Serum 0.58 mg/dL (0.55-1.02); EST Glomerular Filtration Rate 112 mL/min (>60); Est Glom Filt Rate - Afr Amer 136 mL/min (>60); Estimated Creatinine Clearance 85.73 ml/min; Glucose 138 mg/dL (74-106); Magnesium 2.8 mg/dL (1.6-2.6); Phosphorus 3.9 mg/dL (2.5-4.9); Potassium 4.1 mmol/L (3.5-5.1); Sodium Level 144 mmol/L (136-145)
[2021-03-03 05:41] LABS: Allen Test Positive; Base Excess 12 mmol/L (-2 to +2); Bicarbonate 39.5 mmol/L (22-26); Blood Gas Specimen Type ART; FI02 100; Mode BiLevel; O2 Delivery Device Adult Vent; PO2 74 mmHG (75-100); RR 12; SITE L Radial; SO2 90 % (95-99); Total Carbon Dioxide 42 mmol/L; pCO2 92.9 mmHg (35-45); pH 7.24 (7.35-7.45)
--- NOTE | 2021-03-03 06:00 | RAD_ITS ---
STUDY: X-RAY CHEST REASON FOR EXAM: Female, 65 years old. Concern for pneumothorax TECHNIQUE: Single AP portable view of the chest. COMPARISON: 03/02/2021 FINDINGS: Endotracheal tube, nasogastric tube, right upper extremity PICC all of which are unchanged Decrease in alveolar opacities in both lungs consistent with improved bilateral pneumonia, pulmonary edema, or ARDS. There is no demonstrated pleural abnormality. Normal size heart. Normal mediastinum and mayela. Normal visualized pulmonary arteries. Normal visualized aortic arch and descending thoracic aorta. Normal visualized thoracic spine. Normal visualized ribs, clavicles, and shoulders. There is no demonstrated abnormality of the visualized soft tissue structures of the upper abdomen. RAD/Chest 1 View (Portable) IMPRESSION: 1. Endotracheal tube, nasogastric tube, right upper extremity PICC all of which are unchanged. 2. Improved bilateral pneumonia, pulmonary edema, or ARDS. Electronically Signed: Fransisco Yuen MD at 6:57 EDT Tel , Service support ,
[2021-03-03] MEDS: Cefazolin 2 GM in 0.9% Normal Saline 100 ML IV (06:50)
--- NOTE | 2021-03-03 07:44 | PN_ITS ---
Subjective: Patient with spontaneous improvement in saturations yesterday afternoon from the 60s to the low 90s overnight. Family has been at the bedside continuously for the last 24 hours. Patient has had some intermittent agitation. Nursing reported a leak from the balloon this morning that responded to addition of 3 cc of air. No pressors have been required. Patient continues to tolerate tube feeds. Objective: Chest x-ray this morning shows continued bilateral infiltrates, but no pneumothorax. General: Alert, - - Opens eyes to voice, but slow to follow commands. Morbidly obese. HEENT: Atraumatic, PERRLA, EOMI, Normocephalic, - - Scleral injection without icterus Oral: Moist Mucosa, No Gingival or Mucosal Lesions/ Ulcerations, - - Chronic posterior pharynx Neck: Supple, No Nodes, Trachea Midline Lungs: No rhonchi, No wheeze, No rales, Diminished, - - Indurated area on the medial aspect of the left breast. No associated erythema or crepitus. Cardiovascular: Normal S1, Normal S2, No murmurs, No rub noted, No Gallop, Tachycardic Abdomen: Bowel Sounds Present, Soft, Non Tender, Non-Distended, Obese Extremities: No clubbing, No cyanosis, Edema Skin: No rashes, No breakdown Musculoskeletal: No Tenderness to Palpation of Joints or Extremities Lymphatic: No Cervical, Supraclavicular, or Inguinal Adenopathy Neurological: Cranial nerves II-XII grossly intact, Neuro grossly intact Psych/Mental Status: Flat Affect Vital Signs Temp Pulse Resp BP Pulse Ox 38.4 C H 108 H 27 H 204/88 H 90 03/03/21 07:00 03/03/21 07:22 03/03/21 07:00 03/03/21 07:00 03/03/21 07:00 Oxygen Delivery Method Mechanical Ventilator Weight: 135 kg Body Mass Index (BMI) 49.1 Intake and Output for Last 24 Hours 03/01/21 03/02/21 03/03/21 23:59 23:59 23:59 Intake Total 1611.65 / 2012.45 3356.43 / 3383.63 2097.00 / 2097.00 Output Total 3170 / 3320 2750 / 2750 550 / 550 Balance -1558.35 / -1307.55 606.43 / 633.63 1547.00 / 1547.00 Labs (Last 48 Hours) 03/02/21 03/02/21 03/02/21 04:40 04:40 06:08 WBC 13.2 H RBC 4.29 Hgb 12.1 Hct 40.0 MCV 93.2 MCH 28.2 MCHC 30.3 L RDW Std Deviation 46.9 H RDW Coeff of Ramsey 13.7 Plt Count 236 MPV 10.6 Immature Gran % (Auto) 4.900 H Neut % (Auto) 76.4 H Lymph % (Auto) 10.9 L [place] % (Auto) 6.2 Eos % (Auto) 1.1 Baso % (Auto) 0.5 Absolute Neuts (auto) 10.1 H Absolute Lymphs (auto) 1.44 Nucleated RBC % 0 Specimen Type ART Sample Site R Radial pH 7.42 Bicarbonate Actual 35.2 H Total CO2 37 Base Excess 11 H O2 Saturation 74 L O2 % 100 ABG pCO2 54.0 H ABG pO2 39 L* Marcio Test Respiration Rate 12 O2 Delivery Device Adult Vent Vent Mode BiLevel Crit Call To/Read Back Yes Blood Gas Notified Whom Dr Cm Sodium 143 Potassium 3.6 Chloride 103 Carbon Dioxide 37.0 H Anion Gap 3 L BUN 32 H Creatinine 0.54 L Estim Creat Clear Calc 92.08 Est GFR (MDRD) Af Amer 147 Est GFR (MDRD) Non-Af 121 BUN/Creatinine Ratio 59.3 H Glucose 128 H Calcium 8.4 L Phosphorus Magnesium 03/03/21 03/03/21 03/03/21 03:30 03:30 05:30 WBC 15.4 H RBC 4.15 L Hgb 11.6 L Hct 40.1 MCV 96.6 MCH 28.0 MCHC 28.9 L RDW Std Deviation 49.1 H RDW Coeff of Ramsey 13.8 Plt Count 247 MPV 11.1 Immature Gran % (Auto) 4.400 H Neut % (Auto) 78.9 H Lymph % (Auto) 9.5 L [place] % (Auto) 6.3 Eos % (Auto) 0.4 Baso % (Auto) 0.5 Absolute Neuts (auto) 12.1 H Absolute Lymphs (auto) 1.46 Nucleated RBC % 0 Specimen Type ART Sample Site L Radial pH 7.24 L Bicarbonate Actual 39.5 H Total CO2 42 Base Excess 12 H O2 Saturation 90 L O2 % 100 ABG pCO2 92.9 H* ABG pO2 74 L Marcio Test Positive Respiration Rate 12 O2 Delivery Device Adult Vent Vent Mode BiLevel Crit Call To/Read Back Yes Blood Gas Notified Whom Dr. Cm Sodium 144 Potassium 4.1 Chloride 102 Carbon Dioxide 40.0 H Anion Gap 2 L BUN 32 H Creatinine 0.58 Estim Creat Clear Calc 85.73 Est GFR (MDRD) Af Amer 136 Est GFR (MDRD) Non-Af 112 BUN/Creatinine Ratio 55.5 H Glucose 138 H Calcium 8.6 Phosphorus 3.9 Magnesium 2.8 H Microbiology 02/25/21 14:48 Blood Culture (Wb) - Right Hand Blood Culture - Final No growth in 5 days. 02/25/21 14:30 Blood Culture (Wb) - Pic Blood Culture - Final No growth in 5 days. Clinical Impression(s) from Imaging Studies Chest X-Ray 03/02/21 07:02 IMPRESSION: No change from 02/26/2021 Electronically Signed: Fransisco Yuen MD at 8:04 EDT Tel , Service support , Echocardiogram 03/02/21 07:12 Interpretation Summary Moderate concentric left ventricular hypertrophy. Left ventricular systolic function is hyperdynamic. Moderately dilated right ventricle. Intact atrial septum Pulmonary artery systolic pressure iSPAP i56 mmhg mmHg NO PFO/or intracardiac shunt Buble study is Normal Ordering Physician: Alfred Cm Performed By: Fabiola Chin RDCS Chest X-Ray 03/03/21 06:00 IMPRESSION: 1. Endotracheal tube, nasogastric tube, right upper extremity PICC all of which are unchanged. 2. Improved bilateral pneumonia, pulmonary edema, or ARDS. Electronically Signed: Fransisco Yuen MD at 6:57 EDT Tel , Service support , Medical Necessity - Tobacco Use Smoking Status: Never smoker Assessment/Plan All Active Problems Acute respiratory failure with hypoxia (Acute) Acute bilateral COVID-19 pneumonia (Acute) RECOMMENDATIONS: 1. Continue patient on APRV mode of mechanical ventilation and wean FiO2 and PEEP to maintain saturations at or above 90%. 2. Completed remdesivir and continue Decadron to complete 10 days 3. Therapeutic Lovenox 4. Continue tube feeds as tolerated. Continue aggressive bowel regimen 5. Continue scheduled Lasix 6. Continue appropriate ICU prophylaxis. 7. Decrease sedation. Repeat ABG this afternoon or with hemodynamic instability IMPRESSIONS: 1. Acute hypoxemic respiratory failure secondary to ARDS secondary to COVID- 19 pneumonia/MSSA pneumonia Patient has completed remdesivir and Decadron therapy. Continues to have marginal saturations despite APRV. We will schedule diuretics as patient has been able to tolerate very previous dosing. However, paralytics are contraindicated in APRV secondary to ventilation. ABG this morning shows compensated CO2 retention, so patient will likely not tolerate this. Since of conversations with the family. Patient is too unstable to transfer for ECMO or CAT scan to evaluate for a secondary process. Patient is on antibiotics at this time. DVT was noted 2 days ago and patient has been on Lovenox. Long family discussion yesterday. Patient with spontaneous improvement in saturations over the last 24 hours. Clinical suspicion is for improvement in a possible PE as other hemodynamics and vent requirements have not changed. ABG does show an increase in CO2 retention, likely secondary to increased sedation. This will be decreased and a repeat ABG will be scheduled for this afternoon. 2. New onset fever/DVT associated with PICC Unclear etiology at this time. Patient has had no bowel movement documented and is requiring high fentanyl dosing. Will attempt aggressive bowel regimen. Infectious diseases following. Patient has been on antibiotics throughout hospitalization. Patient persists and fever. No Precedex has been used. 3. Increased residuals Improved. Clinical suspicion for increased residuals secondary to lack of bowel movement. Will be more aggressive with the bowel regimen. Continue with tube feeds for now. No aspiration events have been reported by staff. 4. Super morbid obesity at high risk for sleep disordered breathing Complicates care, management, recovery and prognosis. Continue supportive measures as noted above. TIME: 40 minutes of critical care time, independent of procedures, was spent addressing the patient's acute hypoxemic respiratory failure, COVID-19 pneumonia, super morbid obesity, review of all data and collaboration with the care team. (6:30 AM to 7:30 AM) 9xxxx: [id number] Critical care first hour
[2021-03-03] MEDS: Acetaminophen 650 MG/20 ML UDC GT (08:03)
[2021-03-03] MEDS: Labetalol (Prefilled) 20 MG/4 ML 10 MG IV (08:17)
[2021-03-03] MEDS: 0.9% Saline Lock 10 ML Syringe IV (08:26)
[2021-03-03] MEDS: Chlorhexidine 15 ML PO (08:30)
[2021-03-03] MEDS: Propofol 10MG/Ml 1,000 MG/100 ML Bottle 16.3 MG CONT INF (09:34)
[2021-03-03] MEDS: Enoxaparin 150 MG/ML Syringe 135 MG SC (10:14)
[2021-03-03] MEDS: Furosemide 40 MG/4 ML Vial IV (10:14)
[2021-03-03] MEDS: dexAMETHasone 10 MG/ML Vial 6 MG IV (10:14)
[2021-03-03] MEDS: Senna/Docusate Sodium 1 Tablet 2 TABLET GT (10:17)
[2021-03-03] MEDS: Polyethylene Glycol 3350 17 GM PACKET GT (10:17)
--- NOTE | 2021-03-03 11:00 | NURSING ---
propofol remains at 15 mcg/kg/min, pt does become restless with moving head, RR elevated, RASS remains -3.
--- NOTE | 2021-03-03 12:56 | NURSING ---
in depth conversation with and three children, educated on POC, discussed quality of life and outcomes of events, family asking about EEG and MRI, Dr. Cm contacted and family made aware of response, emotional support provided to family.
--- NOTE | 2021-03-03 13:50 | NURSING ---
Family has made the decision to withdraw care, Dr. Cm and Dr. Ngo notified, meds ordered, waiting for other family arrival.
[2021-03-03 13:55] LABS: Base Excess 16 mmol/L (-2 to +2); Bicarbonate 38.5 mmol/L (22-26); Blood Gas Specimen Type ART; FI02 100; Mode BiLevel; O2 Delivery Device ET Tube; PO2 76 mmHG (75-100); RR 12; SITE L Radial; SO2 96 % (95-99); Total Carbon Dioxide 40 mmol/L; pCO2 45.2 mmHg (35-45); pH 7.54 (7.35-7.45)
--- NOTE | 2021-03-03 16:00 | NURSING ---
restraints removed at this time with family at bedside.
--- NOTE | 2021-03-03 16:28 | EXP.PCM_ITS ---
Preliminary Cause of Acute hypoxic respiratory failure secondary to acute Covid 19 pneumonia Date of Admission: 02/20/21 Date of : 03/03/21 - Principle Diagnosis Problem List: Active and Suspected Problems Acute respiratory failure with hypoxia (Acute) Acute bilateral COVID-19 pneumonia (Acute) Hospital Course Mrs. Moreno was a 65-year-old white female who presented to the emergency department at [facility] on 02/20/2021 with a fever of 101. In addition, she was hypertensive, tachypneic, and hypoxic requiring BiPAP support. Her initial white blood cell count was within normal limits. Her D-dimer was elevated at 1.06 and a CTA was performed that showed no pulmonary embolism however it showed diffuse bilateral groundglass opacities. Her lactic acidosis was within normal limits, her troponin was negative and her BNP was normal. A rapid coronavirus antigen was positive and she was initiated on remdesivir and Decadron. She was subsequently admitted to the medical ICU for further management. She decompensated and required intubation on 02/21/2021 and was intubated until the time of her . Respiratory cultures revealed concomitant MSSA pneumonia for which she was treated with antibiotics. She unfortunately developed severe ARDS and was very difficult to oxygenate and ventilate. She was converted to bilevel ventilation which improved her saturations for a time but on 03/02/2021 she had desaturations as low as 32%. Prior to this time she had persistent fevers for which repeat cultures were performed and were negative other than her MSSA pneumonia which as stated, was continuing to be treated. Bilateral lower extremity and upper extremity ultrasounds were performed and demonstrated a right upper extremity DVT at the site of her PICC and a left soleal DVT. She was placed on therapeutic Lovenox at the time of this discovery. With her hypoxemia on bilevel ventilation with an FiO2 of 100% there was concern that she possibly had pulmonary embolism but we were unable to perform further imaging studies secondary to her severe instability. Given her severe hypoxemia her Decadron course was extended 20 days. An echocardiogram was performed on 03/02/2021 that showed mild concentric LVH, normal ejection fraction, moderately dilated RV, no PFO or intracardiac shunt and pulmonary artery systolic pressure of 56 mmHg. No Herrera sign was noted on this echo. Her oxygen saturations did improve from the 17th to the 18th and came up to the 90s. BG did improve regarding her hypoxemia but she was more hypercapnic and her sedation was decreased significantly. Unfortunately with a decrease in her sedation her mental status did not improve much. Repeat ABG that was done this afternoon showed a alkalosis with a PCO2 that had been decreased from 92.9-45.2 which is below her baseline indicating hyperventilation. Her temperature has remained elevated, her blood pressure is significantly rising, is less responsive and she has been more tachypneic on the ventilator. Oxygen saturations on 100% FiO2 were 90 to 92%. After extensive conversation with the family the decision was made to convert her CODE STATUS to DNR NEONATOLOGIST and she was terminally extubated on 03/03/2021. Time of was 1648. Inpatient E&M: [id number] Disch Hosp
[2021-03-03] MEDS: LORazepam 2 MG/ML Syringe IV (16:34)
[2021-03-03] MEDS: Morphine 2 MG/ML Syringe IV (16:35)
--- NOTE | 2021-03-03 17:38 | NURSING ---
Addendum entered by Antonia Reardon 03/03/21 18:47: this RN and Claudette Lara RN verified no heart beat Original Note: terminally extubated at 1638 by respiratory therapist and this RN, family at bedside, medicated prior to extubation, time of 1648.
== END 2021-03-03 18:20 | DRG 207 ==
LOC: ED 19:07 → ICU 02-21 00:40
PROVIDERS: Internal Medicine Critical Care Medicine; Internal Medicine Infectious Disease; Student in an Organized Health Care Education/Training Program; Admitting Provider Hospitalist; Emergency Provider Emergency Medicine; Visit Provider Internal Medicine
DX: U07.1 COVID-19 (principal); J12.82 Pneumonia due to coronavirus disease 2019; J96.01 Acute respiratory failure with hypoxia; J15.211 Pneumonia due to Methicillin susceptible Staphylococcus aureus; J15.4 Pneumonia due to other streptococci; Z68.42 Body mass index [BMI] 45.0-49.9, adult; J96.12 Chronic respiratory failure with hypercapnia; T82.818A Embolism due to vascular prosthetic devices, implants and grafts, initial encounter; I82.621 Acute embolism and thrombosis of deep veins of right upper extremity; E87.0 Hyperosmolality and hypernatremia; E66.01 Morbid (severe) obesity due to excess calories; R79.1 Abnormal coagulation profile; E11.65 Type 2 diabetes mellitus with hyperglycemia; T38.0X5A Adverse effect of glucocorticoids and synthetic analogues, initial encounter; I82.462 Acute embolism and thrombosis of left calf muscular vein; K59.00 Constipation, unspecified; Z66 Do not resuscitate
CPT/HCPCS: 31500; 31720; 36415; 36569; 36600; 71045; 71275; 80048; 80053; 82550; 82803; 82962; 83036; 83605; 83735; 83880; 84100; 84145; 84478; 84484; 85025; 85379; 85610; 87040; 87070; 87077; 87186; 87205; 87426; 93005; 93308; 93970; 93971; 94002; 94003; 97802; 99251; 99285; J2997; J7030; J7040; J7050; Q9957; Q9967; A4216; G0463; J1940; J3010